=== PATIENT | female | born 1955 | race African-American/Black ===

== ENCOUNTER → 2020-07-07 12:25 | Outpatient (CLI) | payer OTHER, SELFPAY ==
--- NOTE | ~2020-07-07 | MM_ITS ---
EXAMINATION: MM screening [facility] BI w cherelle HISTORY: Screening mammogram TECHNIQUE: Craniocaudal and mediolateral oblique 3-D tomosynthesis images were obtained and synthetic 2-D images were generated. CAD analysis was submitted and interpreted. COMPARISON: 10/10/2018, 08/13/2018, 07/25/2016 BREAST PARENCHYMAL COMPOSITION: There are scattered areas of fibroglandular density. FINDINGS: There is no evidence of suspicious mass, calcification, or architectural distortion to sugg est malignancy in either breast. There has been no suspicious interval change. IMPRESSION: 1. No mammographic evidence of malignancy. 2. Recommend routine screening mammography in one year. BI-RADS Category 1: Negative Reviewed, dictated and finalized at location A. NESS UNIT CONTROLLER
== END ==
DX: Z12.31 Encounter for screening mammogram for malignant neoplasm of breast (principal)
CPT/HCPCS: 77063; 77067

== ENCOUNTER → 2021-08-30 12:22 | Outpatient (CLI) | payer MEDICARE, SELFPAY ==
--- NOTE | ~2021-08-30 | MM_ITS ---
EXAMINATION: MM screening [facility] BI w cherelle HISTORY: Screening mammogram TECHNIQUE: Craniocaudal and mediolateral oblique 3-D tomosynthesis images were obtained and synthetic 2-D images were generated. CAD analysis was submitted and interpreted. COMPARISON: 07/07/2020, 10/10/2018, 08/13/2017 BREAST PARENCHYMAL COMPOSITION: There are scattered areas of fibroglandular density. FINDINGS: There is no suspicious mass, calcification, or architectural distortion to suggest malignan cy in either breast. There has been no suspicious interval change. IMPRESSION: 1. No mammographic evidence of malignancy. 2. Recommend routine screening mammography in one year. BI-RADS Category 1: Negative Reviewed, dictated and finalized at location A.
--- NOTE | ~2021-08-30 | DEXA_ITS ---
Bone Density Report Name: PARIS CRAVEN Age: 66 Sex: Female Ethnicity: Anthony Date of : 1955 Indication: postmenopausal; screening for osteoporosis; height loss; prior fracture; Referring Provider: JOHN PAUL PEDRAZA Study: Bone densitometry was performed. Exam Date: August 30, 2021 Accession number: [id number] Bone Density: Region BMD T-score Z-score Classification AP Spine (L1-L4) 1.109 0.6 1.7 Normal Femoral Neck (Left) 0.897 0.4 1.0 Normal Total Hip (Left) 0.959 0.1 0.6 Normal Femoral Neck (Right) 0.865 0.1 0.7 Normal Total Hip (Right) 0.979 0.3 0.7 Normal Total Hip Mean 0.969 0.2 0.7 Normal World Health Organization criteria for BMD impression classify patients as: Normal (T-score at or above -1.0), Osteopenia (T-score between -1.0 and -2.5), or Osteoporosis (T-score at or below -2.5). 10-year Fracture Risk: FRAX not reported because: All T-scores for Spine Total, Hip Total, Femoral Neck at or above -1.0 Previous Exams: Region Exam Age BMD T-score BMD Change BMD Change Date g/cm2 vs Baseline vs Previous AP Spine(L1-L4) 08/30/2021 66 1.109 0.6 0.040 0.040 12/17/2007 52 1.070 0.2 Total Hip(Left) 08/30/2021 66 0.959 0.1 -0.001 -0.001 12/17/2007 52 0.960 0.1 Total Hip(Right) 08/30/2021 66 0.979 0.3 0.017 0.017 12/17/2007 52 0.962 0.2 *Denotes significance at 95% confidence level, LSC for AP Spine = 0.022 g/cm2, LSC for Total Hip = 0.027 g/cm2 Clinical Information Provided by Patient: Has had a low trauma fracture Patient maximum height was 64 Menopause Age: 50 Onset of menses at age 10 Number of children 0 Impression: The patient has normal bone mass. The patient has risk factors, including: previous fracture. No significant bone loss was observed. Discussion: BONE DENSITY IS ABOVE THE MINIMUM DESIRABLE LEVEL AT ALL SKELETAL SITES TESTED. This patient?s bone mineral density is above the minimum desirable level (T-score -1.0 or better) at all sites measured. The patient should follow a healthful lifestyle (good nutrition with adequate calcium and vitamin D, and appropriate weight-bearing exercise). Follow-Up: Consider repeating this study in 5 years or sooner if there is some new clinical indication. Reported by: [facility] on 08/30/2021 1:01:00 PM. Reviewed, dictated and finalized at location A.
== END ==
DX: Z12.31 Encounter for screening mammogram for malignant neoplasm of breast (principal); Z78.0 Asymptomatic menopausal state
CPT/HCPCS: 77063; 77067; 77080

== ENCOUNTER 2022-04-24 11:36 | Emergency (ER) | payer MEDICARE, SELFPAY ==
--- NOTE | ~2022-04-24 | XR_ITS ---
EXAMINATION: XR chest 2V DATE: 04/24/2022 12:38 INDICATION: Right-sided chest and arm pain TECHNIQUE: PA and lateral views of the chest were obtained. COMPARISON: Chest radiograph dated 10/30/2017 FINDINGS: The lungs remain clear with no focal airspace opacities, pulmonary edema, pleural effusion or pneumot horax. The cardiomediastinal silhouette is normal. Mild upper thoracic levocurvature. IMPRESSION: 1. No acute cardiopulmonary disease. Reviewed, dictated and finalized at location A. OGICAL INSPECTOR
--- NOTE | 2022-04-24 11:43 | ECG_ITS ---
Measurements Intervals [place] Rate: 72 P: 33 MO: 138 QRS: -14 QRSD: 97 T: -14 QT: 373 QTc: 411 Interpretive Statements SINUS RHYTHM VOLTAGE CRITERIA FOR LVH POOR R WAVE PROGRESSION, ANTERIOR LEADS BORDERLINE T WAVE ABNORMALITY- ANTEROLAT/INF LEADS BORDERLINE ECG NO PREVIOUS ECG AVAILABLE FOR COMPARISON Electronically Signed On 04-24-2022 14:07:22 COMMUNITY RELATIONS REP by Ethan Mcdonough D.O.
[2022-04-24 11:44] VITALS: BP 153/91; PULSE 77; RESP 18; TEMP 37; O2SAT 98
[2022-04-24 11:59] LABS: Basophils Absolute Auto 0.1 K/mm3 (0.0-0.1); Eosinophils Absolute Auto 0.3 K/mm3 (0-0.3); Eosinophils Percent Auto 5.7 % (0-4.4); Hematocrit 39.2 % (37.0-47.0); Hemoglobin 12.4 g/dL (12.0-15.0); Immature Granulocyte Absolute 0.01 K/mm3 (0.00-0.031); Immature Granulocyte Percent A 0.2 % (0-0.5); Lymphocytes Percent Auto 37.2 % (18.3-44.2); Mean Corpuscular HGB Conc 31.6 g/dl (32-36); Mean Corpuscular Hemoglobin 28.6 pg (26-34); Mean Corpuscular Volume 90.5 fl (80-100); Monocytes Absolute Auto 0.3 K/mm3 (0.1-0.6); Monocytes Percent Auto 5.5 % (2.6-8.5); Neutrophils Absolute Auto 2.6 K/mm3 (1.3-6.7); Neutrophils Percent Auto 50.4 % (45.5-73.1); Platelet Count Result 339 k/mm3 (150-375); Red Blood Count 4.33 M/mm3 (4.2-5.4); White Blood Count 5.1 K/mm3 (4.5-10.0)
[2022-04-24 12:07] LABS: INR 0.9; Prothrombin Time 11.9 Seconds (11.1-14.7)
[2022-04-24 12:09] LABS: Alanine Aminotransferase 29 U/L (6-35); Albumin Level 4.5 g/dL (3.5-5.1); Alkaline Phosphatase 123 U/L (38-126); Anion Gap 7 mmol/L (8-16); Aspartate Amino Transferase 25 U/L (14-36); Bilirubin,Total 0.4 mg/dL (0.2-1.3); Blood Urea Nitrogen 16 mg/dL (7-17); Calcium 9.3 mg/dL (8.4-10.2); Carbon Dioxide 28 mmol/L (22-30); Chloride 105 mmol/L (98-107); Estimated CRCL calculation 74 ml/min; Estimated Glomerular Filt Rate > 60; Glucose 134 mg/dL (65-110); Lipase 71 U/L (23-300); Potassium 3.8 mmol/L (3.4-5.0); Sodium 140 mmol/L (137-145)
[2022-04-24 12:21] LABS: Troponin I < 0.012 ng/mL (0.000-0.034)
[2022-04-24 14:35] VITALS: BP 129/77; PULSE 66; TEMP 36.4; O2SAT 97
[2022-04-24 15:09] LABS: Troponin I < 0.012 ng/mL (0.000-0.034)
[2022-04-24 16:11] VITALS: BP 156/81; PULSE 63; RESP 16; O2SAT 99
--- NOTE | 2022-04-24 16:41 | ED.GENADULT ---
HPI - General Adult General Chief complaint: Chest Pain Stated complaint: Right sided arm and CP Time Seen by Provider: 04/24/22 16:05 History of Present Illness HPI narrative: 66-year-old female with history of hypertension presented to the emergency department for evaluation of right-sided chest pain. Patient states that yesterday when she was at rest she had right-sided chest pain that did radiate to her right arm. Patient states the pain is worsened with leaning back and with deep inspiration. Patient denies any prior history of PE or DVT. Patient has no prior history of IL or CVA. Patient denies any associated shortness of breath with this. Patient denies any abdominal pain or associated nausea vomiting or diarrhea. Related Data Allergies Allergy/AdvReac Type Severity Reaction Status Date / Time No Known Allergies Allergy Unverified 11/06/17 16:15 Review of Systems Review of Systems: CONSTITUTIONAL: Denies fever, chills, or sweats. EYES: Denies visual changes, redness, or discharge. ENT: Denies rhinorrhea, congestion, sore throat, or otalgia. CARDIOVASCULAR: See HPI RESPIRATORY: Denies cough or dyspnea. GASTROINTESTINAL: Denies abdominal pain, nausea, vomiting, or diarrhea. GENITOURINARY: Denies dysuria or hematuria. SKIN: Denies rash or itching. MUSCULOSKELETAL: Denies back pain, joint pain, or myalgia. NEUROLOGIC: Denies headache, numbness, or weakness. [facility] Family History Family History (Updated 10/01/11 @ 15:00 by DOCTOR UNKNOWN) Other Hypertension Social History Social History Smoking status: Never smoker Alcohol intake: current Exam Narrative: APPEARANCE: Well appearing, no pain, no distress, well-nourished. HEAD: normocephalic, atraumatic. EYES: PERRLA/EOMI, conjunctivae clear. NOSE: Normal no drainage THROAT: Pharynx clear, no exudate. NECK: Supple. No adenopathy, no masses. RESPIRATORY: Airway patent, respirations nonlabored. Clear to auscultation bilaterally, no rales, rhonchi, wheezing. CARDIOVASCULAR: Regular rate and rhythm without murmurs rubs or gallops. ABDOMINAL: Soft, nontender, nondistended, normal bowel sounds MUSCULOSKELETAL: Moves all extremities. Strength/ROM intact, No edema, No calf tenderness. NEURO: Alert. Cranial nerves II through XII intact. Grossly intact SKIN: Warm, dry. Normal Color PSYCHIATRIC: Normal affect/mood. Course Course Emergency Course: Patient blood pressures were improved. Patient had negative serial troponins. Chest x-ray showed no acute cardiopulmonary malady. Patient was afebrile with no leukocytosis. Patient was updated on the results of her work-up. Vital Signs Vital signs: Vital Signs Temperature 98.6 F 04/24/22 11:44 Pulse Rate 77 04/24/22 11:44 Respiratory Rate 18 04/24/22 11:44 Blood Pressure 153/91 H 04/24/22 11:44 Pulse Oximetry 98 04/24/22 11:44 Oxygen Delivery Room Air 04/24/22 11:44 Temperature 97.6 F 04/24/22 14:35 Pulse Rate 65 04/24/22 18:41 Respiratory Rate 15 04/24/22 18:41 Blood Pressure 135/75 04/24/22 18:41 Pulse Oximetry 98 04/24/22 18:41 Oxygen Delivery Room Air 04/24/22 11:44 Medical Decision Making Vital Signs Vital Signs: Vital Signs Temperature 98.6 F 04/24/22 11:44 Pulse Rate 77 04/24/22 11:44 Respiratory Rate 18 04/24/22 11:44 Blood Pressure 153/91 H 04/24/22 11:44 Pulse Oximetry 98 04/24/22 11:44 Oxygen Delivery Room Air 04/24/22 11:44 Temperature 97.6 F 04/24/22 14:35 Pulse Rate 65 04/24/22 18:41 Respiratory Rate 15 04/24/22 18:41 Blood Pressure 135/75 04/24/22 18:41 Pulse Oximetry 98 04/24/22 18:41 Oxygen Delivery Room Air 04/24/22 11:44 Lab Data Lab results reviewed: Yes I reviewed the patient's lab results. 04/24/22 11:52 04/24/22 11:52 Labs: Lab Results 04/24/22 04/24/22 04/24/22 Range/Units 11:52 11:52 11:52 WBC 5.1 (4.5-10.0) K/mm3 RBC 4.33 (4.2-5.4)
[2022-04-24 17:40] LABS: D Dimer 0.29 ug/mL (<0.48)
[2022-04-24 18:27] LABS: Troponin I < 0.012 ng/mL (0.000-0.034)
[2022-04-24 18:41] VITALS: BP 135/75; PULSE 65; RESP 15; O2SAT 98
== END 2022-04-24 18:41 | disposition home or self-care (01) ==
PROVIDERS: Emergency Medicine; Emergency Provider Emergency Medicine
DX: R09.1 Pleurisy (principal); R94.31 Abnormal electrocardiogram [ECG] [EKG]
CPT/HCPCS: 36415; 71046; 80053; 83690; 84484; 85025; 85380; 85610; 85730; 93005; 99284

== ENCOUNTER → 2022-07-09 13:20 | Outpatient (CLI) | payer MEDICARE, SELFPAY ==
--- NOTE | ~2022-07-09 | XR_ITS ---
EXAMINATION: XR shoulder RT min 2V, XR humerus RT DATE: 07/09/2022 14:24 INDICATION: Advanced right shoulder pain TECHNIQUE: 1. AP internally and externally rotated, AP oblique externally rotated and axillary views of the righ t shoulder were obtained. 2. Internal and externally rotated views of the right humerus were obtained. COMPARISON: None FINDINGS: Normal alignment. No fracture.Mild polyarticular osteoarthritis at the right glenohumeral, acromiocl avicular and elbow joints. Visualized portions of the right lung are clear. Soft tissues are unremark able. 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 No acute osseous abnormality. Reviewed, dictated and finalized at location A. 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 No acute oss eous abnormality.
== END ==
DX: M25.511 Pain in right shoulder (principal); M15.9 Polyosteoarthritis, unspecified
CPT/HCPCS: 73030; 73060

== ENCOUNTER 2023-05-09 14:21 | Outpatient (CLI) | payer MEDICARE, SELFPAY | END 2023-05-09 14:22 | disposition home or self-care (01) | LOC: ANHAUDASC 14:22 | PROVIDERS: Visit Provider Internal Medicine | DX: H91.90 Unspecified hearing loss, unspecified ear (principal) | CPT/HCPCS: 92557; 92567 ==

== ENCOUNTER 2023-07-10 08:57 | Outpatient (CLI) | payer MEDICARE, SELFPAY ==
[2023-07-10 18:02] LABS: Basophils Absolute Auto 0.1 K/mm3 (0.0-0.1); Basophils Percent Auto 0.9 % (0.2-1.2); Eosinophils Absolute Auto 0.2 K/mm3 (0-0.3); Eosinophils Percent Auto 4.3 % (0-4.4); Hematocrit 38.9 % (37.0-47.0); Immature Granulocyte Absolute 0.02 K/mm3 (0.00-0.031); Immature Granulocyte Percent A 0.4 % (0-0.5); Lymphocytes Absolute Auto 2.17 K/mm3 (0.9-3.2); Lymphocytes Percent Auto 40.6 % (18.3-44.2); Mean Corpuscular HGB Conc 30.8 g/dl (32-36); Mean Corpuscular Hemoglobin 28.7 pg (26-34); Mean Corpuscular Volume 93.1 fl (80-100); Mean Platelet Volume 9.6 fl (7.4-10.4); Monocytes Absolute Auto 0.4 K/mm3 (0.1-0.6); Monocytes Percent Auto 6.7 % (2.6-8.5); Neutrophils Absolute Auto 2.5 K/mm3 (1.3-6.7); Neutrophils Percent Auto 47.1 % (45.5-73.1); Platelet Count Result 400 k/mm3 (150-375); Red Blood Count 4.18 M/mm3 (4.2-5.4); Red Cell Distribution Width 14.6 % (11.5-14.5); White Blood Count 5.3 K/mm3 (4.5-10.0)
[2023-07-10 18:25] LABS: Alanine Aminotransferase 35 U/L (6-35); Albumin Level 4.1 g/dL (3.5-5.1); Alkaline Phosphatase 124 U/L (38-126); Anion Gap 6 mmol/L (8-16); Aspartate Amino Transferase 43 U/L (14-36); Bilirubin,Total 0.7 mg/dL (0.2-1.3); Blood Urea Nitrogen 17 mg/dL (7-17); Calcium 9.5 mg/dL (8.4-10.2); Carbon Dioxide 28 mmol/L (22-30); Chloride 106 mmol/L (98-107); Cholesterol 180 mg/dL (0-200); Estimated Glomerular Filt Rate > 60; Glucose 130 mg/dL (65-110); HDL Direct 63 mg/dL; Sodium 140 mmol/L (137-145); Triglycerides 76 mg/dL (<150)
[2023-07-10 18:35] LABS: LDL Cholesterol Direct 81 mg/dL
[2023-07-10 19:27] LABS: Hemoglobin A1C 7.3 % (<5.7)
[2023-07-10 19:29] LABS: Folic Acid 5.9 ng/mL (2.76->20)
[2023-07-15 12:14] LABS: NIL 0.03 IU/mL; Quantiferon TB Plus, 1T POSITIVE (NEGATIVE); TB1-NIL 5.74 IU/mL; TB2-NIL 6.26 IU/mL
== END 2023-07-10 08:58 | disposition home or self-care (01) ==
LOC: ANHGOSHLAB 08:59
PROVIDERS: Visit Provider Nurse Practitioner
DX: E03.9 Hypothyroidism, unspecified (principal); E11.9 Type 2 diabetes mellitus without complications; I10 Essential (primary) hypertension; Z11.1 Encounter for screening for respiratory tuberculosis
CPT/HCPCS: 36415; 80053; 80061; 82607; 82746; 83036; 84443; 85025; 86480

== ENCOUNTER 2023-07-19 09:53 | Outpatient (CLI) | payer MEDICARE, SELFPAY ==
[2023-07-23 13:43] LABS: NIL 0.02 IU/mL; Quantiferon TB Plus, 1T POSITIVE (NEGATIVE); TB1-NIL 7.66 IU/mL; TB2-NIL 7.51 IU/mL
== END 2023-07-19 09:54 | disposition home or self-care (01) ==
LOC: ANHGOSHLAB 09:55
PROVIDERS: Visit Provider Nurse Practitioner
DX: R76.11 Nonspecific reaction to tuberculin skin test without active tuberculosis (principal)
CPT/HCPCS: 36415; 86480

== ENCOUNTER 2023-07-19 10:00 | Outpatient (CLI) | payer MEDICARE, SELFPAY ==
--- NOTE | ~2023-07-19 | XR_ITS ---
Clinical Indication: Positive TB skin test PA and lateral views of the chest: Comparison: 04/24/2022 Findings: The lungs are clear, without evidence of focal consolidation or pleural effusion. Cardiome diastinal silhouette is within normal limits. Bones and soft tissues are unremarkable. Impression: Normal chest. Reviewed, dictated and finalized at [facility]. N GATHERER Impression: Normal chest.
== END 2023-07-19 10:01 ==
PROVIDERS: PCP Internal Medicine; Visit Provider Nurse Practitioner
DX: R76.11 Nonspecific reaction to tuberculin skin test without active tuberculosis (principal)
CPT/HCPCS: 71046

== ENCOUNTER 2024-01-07 09:38 | Outpatient (CLI) | payer MEDICARE, SELFPAY ==
[2024-01-07 14:40] LABS: Alanine Aminotransferase 33 U/L (6-35); Albumin Level 4.6 g/dL (3.5-5.1); Alkaline Phosphatase 115 U/L (38-126); Anion Gap 11 mmol/L (4-12); Aspartate Amino Transferase 56 U/L (14-36); Bilirubin,Total 0.4 mg/dL (0.2-1.3); Blood Urea Nitrogen 23 mg/dL (7-17); Carbon Dioxide 25 mmol/L (22-30); Chloride 104 mmol/L (98-107); Estimated Glomerular Filt Rate > 60; Glucose 124 mg/dL (65-110); Potassium 4.3 mmol/L (3.4-5.0); Sodium 140 mmol/L (137-145)
[2024-01-07 15:33] LABS: Creatinine Urine 152.8 mg/dL
[2024-01-07 15:39] LABS: MALB Creatinine Ratio 4.9 mg/g (0-30); Microalbumin Urine Random 7.5 mg/L (0-16.7)
[2024-01-07 16:23] LABS: Hemoglobin A1C 6.6 % (<5.7)
== END 2024-01-07 09:39 | disposition home or self-care (01) ==
PROVIDERS: PCP Internal Medicine; Visit Provider Nurse Practitioner
DX: E11.9 Type 2 diabetes mellitus without complications (principal)
CPT/HCPCS: 36415; 80053; 82043; 83036

== ENCOUNTER 2024-02-06 08:01 | Day surgery (SDC) | payer MEDICARE, SELFPAY ==
[2024-01-20 12:52] VITALS: BMI 32.7
[2024-01-20 13:47] VITALS: BMI 32.7
[2024-02-06 09:15] VITALS: BP 148/92; PULSE 90; RESP 16; TEMP 36.9; O2SAT 100; BMI 32.2
--- NOTE | 2024-02-06 09:21 | WPDANESEPPF ---
Anes - Initial Pre Proc Eval Procedure: Operation Date: 02/06/24 10:30 Proposed Procedures p Diagnostic Colonoscopy - Robbie Roa MD Date/Time: 02/06/24 09:21 Surgeon: Robbie Roa MD Pre Op Diagnosis: Personal HX of Colonic Polyps Patient Data Age: 68 Gender: F Height: 1.63 m Weight: 86.4 kg Allergies Allergy/AdvReac Type Severity Reaction Status Date / Time No Known Allergies Allergy Verified 02/06/24 09:13 Home Medications Medication Instructions Recorded Confirmed Type aspirin 81 mg tablet,delayed 81 mg PO DAILY 07/09/23 02/06/24 History release (Adult Aspirin Regimen) ezetimibe 10 mg tablet 10 mg PO DAILY #7 tabs 09/30/23 02/06/24 Rx atorvastatin 80 mg tablet 80 mg PO QHS #90 tabs 12/20/23 02/06/24 Rx losartan 50 mg tablet 50 mg PO DAILY #90 tabs 01/06/24 02/06/24 Rx metformin 500 mg tablet 500 mg PO DAILY 01/20/24 02/06/24 History sodium,potassium,mag sulfates 17.5 See Rx Instructions PO .COMPLEX 01/20/24 02/06/24 Rx gram-3.13 gram-1.6 gram oral soln #354 mL (Suprep Bowel Prep Kit) levothyroxine 75 mcg tablet 75 mcg PO DAILY #90 tabs 01/23/24 02/06/24 Rx semaglutide 1 mg/dose (4 mg/3 mL) 1 mg (0.75 mL) subcut WEEKLY #3 mL 01/23/24 02/06/24 Rx subcutaneous pen injector (Ozempic) albuterol sulfate 90 mcg/actuation 1 inh inhalation Q4H PRN shortness 02/06/24 02/06/24 Rx aerosol inhaler of breath or wheezing #8.5 grams Patient hx anesthesia problems: none Family hx anesthesia problems: none Results Review: All pre-operative results and documents have been reviewed as part of the pre-operative evaluation. [facility] Past Medical History Medical History Diabetes type 2, controlled Essential hypertension Hyperlipidemia Thyroid disorder Surgical History Surgical History History of removal of both ovaries Family History Family History Mother Colon cancer Sibling Colon cancer Other Hypertension Social History Social History Smoking status: Never smoker Alcohol intake: current Alcohol use details: occasional Substance use: never Substance use type: does not use Lack of Transportation: No Lack of Food: Never True Current Housing: I Have Housing Concerned About Future Housing: No Difficulty Paying Gas/Electric Bills: Decline to Answer Difficulty Paying for Meds: No Currently Unemployed: No Education: Master's Degree or Higher Difficulty w/ Childcare or Family Care: No Living arrangements: with family Occupation/Education: retired Spiritual care concerns: No Agree to blood products: Yes Anes - Eval Final PreProcedure Day of Procedure 02/06/24 09:21 Patient weight: obese Heart: regular rate and rhythm Lungs: clear to auscultation Airway: Mallampati scale class II Neurological: alert and oriented Last oral intake: >/= 8 hours ASA classification: III Emergent: no Anesthetic plan: proceed Anesthesia type and monitoring: general GIVS and standard monitoring Results Review: All pre-operative results and documents have been reviewed as part of the pre-operative evaluation. Informed Consent: The patient's anesthetic plan and its attendant risks and benefits were discussed with the patient/family/POA. Questions were solicited and answers provided to the satisfaction of the patient/family/POA.
[2024-02-06] MEDS: LACTATED RINGERS 1,000 ML 150 ML IV CONT (09:31)
--- NOTE | 2024-02-06 09:32 | SUR.PREOP ---
MD Espinoza notified - pt took losartan this AM. She also has an unremovable bridge on her lower teeth.
--- NOTE | 2024-02-06 09:37 | PM.HPGS ---
History of Present Illness History of Present Illness Consent: Risks, benefits, and alternatives have been discussed and questions answered. Patient agrees to proceed with procedure. Chief complaint: Family history of colon cancer Narrative: Sanjana Stein is a 68 year old female presents for colonoscopy. Patient's family history is significant that her mother had colon cancer, and a brother also had colon cancer. Reports many years ago she was identified as having a colon polyp. Most recent colonoscopy apparently none were found. Patient returns today for surveillance, screening colonoscopy. S that her current weight appetite and bowel movements are normal. Patient denies abdominal pain. She has had no bleeding. Review of Systems Review of Systems: All systems reviewed & are unremarkable except as noted in HPI and below PMFSH Past Medical History Medical History Diabetes type 2, controlled Essential hypertension Hyperlipidemia Thyroid disorder Surgical History Surgical History History of removal of both ovaries Family History Family History Mother Colon cancer Sibling Colon cancer Other Hypertension Social History Social History Smoking status: Never smoker Alcohol intake: current Alcohol use details: occasional Substance use: never Substance use type: does not use Lack of Transportation: No Lack of Food: Never True Current Housing: I Have Housing Concerned About Future Housing: No Difficulty Paying Gas/Electric Bills: Decline to Answer Difficulty Paying for Meds: No Currently Unemployed: No Education: Master's Degree or Higher Difficulty w/ Childcare or Family Care: No Living arrangements: with family Occupation/Education: retired Spiritual care concerns: No Agree to blood products: Yes Meds Home Medications and Allergies Home Medications Medication Instructions Recorded Confirmed Type aspirin 81 mg tablet,delayed 81 mg PO DAILY 07/09/23 02/06/24 History release (Adult Aspirin Regimen) ezetimibe 10 mg tablet 10 mg PO DAILY #7 tabs 09/30/23 02/06/24 Rx atorvastatin 80 mg tablet 80 mg PO QHS #90 tabs 12/20/23 02/06/24 Rx losartan 50 mg tablet 50 mg PO DAILY #90 tabs 01/06/24 02/06/24 Rx metformin 500 mg tablet 500 mg PO DAILY 01/20/24 02/06/24 History sodium,potassium,mag sulfates 17.5 See Rx Instructions PO .COMPLEX 01/20/24 02/06/24 Rx gram-3.13 gram-1.6 gram oral soln #354 mL (Suprep Bowel Prep Kit) levothyroxine 75 mcg tablet 75 mcg PO DAILY #90 tabs 01/23/24 02/06/24 Rx semaglutide 1 mg/dose (4 mg/3 mL) 1 mg (0.75 mL) subcut WEEKLY #3 mL 01/23/24 02/06/24 Rx subcutaneous pen injector (Ozempic) albuterol sulfate 90 mcg/actuation 1 inh inhalation Q4H PRN shortness 02/06/24 02/06/24 Rx aerosol inhaler of breath or wheezing #8.5 grams Allergies Allergy/AdvReac Type Severity Reaction Status Date / Time No Known Allergies Allergy Verified 02/06/24 09:13 Vital Signs Vital Signs - 24 hr 02/06/24 09:15 Temperature 98.4 F Pulse Rate 90 Respiratory Rate 16 Blood Pressure 148/92 H Pulse Oximetry 100 Oxygen Delivery Room Air Exam Narrative: Physical exam reveals patient to be alert. Vital signs stable. HEENT exam is unremarkable. Patient is anicteric. Lungs are clear to auscultation and to percussion. Heart is without murmur or extra sounds. Abdomen bowel sounds are present soft nontender with no organomegaly. Digital external rectal exam is normal. Assessment and Plan Assessment and plan (1) Screening for colon cancer: Code(s): Z12.11 - Encounter for screening for malignant neoplasm of colon Status: Acute (2) Family history of colon cancer in mother: Code(s): Z80.0 - Family hi
[2024-02-06 09:47] LABS: Glucose Point of Care 100 mg/dl (65-105)
[2024-02-06 10:06] VITALS: BP 141/71; PULSE 70; RESP 12; O2SAT 99
[2024-02-06 10:16] VITALS: BP 123/66; PULSE 81; RESP 16; O2SAT 98
[2024-02-06 10:26] VITALS: BP 133/72; PULSE 77; RESP 16; O2SAT 98
--- NOTE | 2024-02-06 10:39 | WPDANESPN ---
Anes - Prog Note Post-Op Date/Time: 02/06/24 10:39 Cardiovascular status: normal Respiratory status: normal Airway patency: baseline Mental status: baseline Post-Op hydration status: normal Vital Signs: Last Vital Signs Temp 36.9 C 02/06/24 09:15 Pulse 77 02/06/24 10:26 Resp 16 02/06/24 10:26 BP 133/72 02/06/24 10:26 Pulse Ox 98 02/06/24 10:26 O2 Del Method Room Air 02/06/24 10:26 Pain Score (VAS): 0 I/O: Intake & Output 02/05/24 02/06/24 02/06/24 23:59 07:59 15:59 Intake Total 600 Balance 600 02/06/24 09:30 POC Capillary Glucose 100 Post-procedural complaints: none Patient Feedback: Patient satisfied with anesthetic care. Other Findings: Patient vital signs back to baseline. Patient denies nausea and vomiting. Patient's pain under control. Patient OK for discharge.
== END 2024-02-06 10:33 | disposition home or self-care (01) ==
PROVIDERS: PCP Internal Medicine; Visit Provider Internal Medicine Gastroenterology
PROC: 0DJD8ZZ Inspection of Lower Intestinal Tract, Via Natural or Artificial Opening Endoscopic (ICD-10-PCS; CPT 45378; principal; 2024-02-06 10:30)
DX: Z80.0 Family history of malignant neoplasm of digestive organs; D12.0 Benign neoplasm of cecum; D12.2 Benign neoplasm of ascending colon; D12.8 Benign neoplasm of rectum; K57.30 Diverticulosis of large intestine without perforation or abscess without bleeding; K64.8 Other hemorrhoids
CPT/HCPCS: 45385

== ENCOUNTER 2024-02-06 14:53 | Outpatient (NON) | payer MEDICARE, SELFPAY | END 2024-02-06 14:54 | disposition home or self-care (01) | LOC: ANHLAB 14:56 | PROVIDERS: PCP Internal Medicine; Visit Provider Internal Medicine Gastroenterology | DX: Z12.11 Encounter for screening for malignant neoplasm of colon (principal) | CPT/HCPCS: 88305 ==

== ENCOUNTER 2024-03-16 10:07 | Outpatient (CLI) | payer MEDICARE, SELFPAY ==
--- NOTE | ~2024-03-16 | MR_ITS ---
MRI of the brain Clinical History: Amnesia Technique: Axial and sagittal T1-weighted images were acquired. These were followed by axial T2-weigh kenzie, diffusion weighted, gradient, and FLAIR images. Following intravenous administration of 70 cc Mu ltiHance gadolinium, T1-weighted fat-sat imaging was performed in the axial and coronal planes. Findings: There is no acute infarct, intracranial hemorrhage, or mass lesion. There are mild chronic white matter changes in periventricular white matter bilaterally. Ventricles and subarachnoid spaces are unremarkable. Orbits are unremarkable. Paranasal sinuses and m astoid air cells are clear. Major intracranial flow voids are intact. Sagittal midline structures are intact. No abnormal postcontrast enhancement identified. IMPRESSION: Minimal chronic microvascular ischemic change, otherwise unremarkable exam. Reviewed, dictated and finalized at location M.
== END 2024-03-16 10:08 | disposition home or self-care (01) ==
PROVIDERS: PCP Internal Medicine; Visit Provider Nurse Practitioner
DX: R41.3 Other amnesia (principal)
CPT/HCPCS: 70553; A9577

== ENCOUNTER 2024-04-17 16:52 | Emergency (ER) | payer OTHER, MEDICARE, SELFPAY ==
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
[2024-04-17 17:19] VITALS: BP 128/67; PULSE 84; RESP 18; TEMP 36.4; O2SAT 99
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
[2024-04-17] MEDS: CYCLOBENZAPRINE HCL 10 MG TABLET PO (20:07)
[2024-04-17] MEDS: ACETAMINOPHEN 500 MG TABLET 1000 MG PO (20:07)
[2024-04-17] MEDS: KETOROLAC 30 MG/ML VIAL (*BKC) IM (20:07)
== END 2024-04-17 20:54 | disposition home or self-care (01) ==
LOC: ANHED 20:45
PROVIDERS: Emergency Provider Emergency Medicine; PCP Internal Medicine
DX: S13.4XXA Sprain of ligaments of cervical spine, initial encounter (principal); S89.92XA Unspecified injury of left lower leg, initial encounter; S89.91XA Unspecified injury of right lower leg, initial encounter; I10 Essential (primary) hypertension; E11.9 Type 2 diabetes mellitus without complications; E78.5 Hyperlipidemia, unspecified; E07.9 Disorder of thyroid, unspecified; Z90.722 Acquired absence of ovaries, bilateral; Z79.85 Long-term (current) use of injectable non-insulin antidiabetic drugs; Z79.84 Long term (current) use of oral hypoglycemic drugs; Z79.82 Long term (current) use of aspirin; Z79.899 Other long term (current) drug therapy; M51.369 Other intervertebral disc degeneration, lumbar region without mention of lumbar back pain or lower extremity pain; M17.0 Bilateral primary osteoarthritis of knee; M50.322 Other cervical disc degeneration at C5-C6 level; V43.52XA Car driver injured in collision with other type car in traffic accident, initial encounter
CPT/HCPCS: 71046; 72125; 72128; 72131; 72170; 73030; 73562; 73630; 96372; 99284; A9270; J1885

== ENCOUNTER 2024-07-13 15:44 | Observation (INO) | payer MEDICARE, SELFPAY ==
--- NOTE | ~2024-07-13 | NM_ITS ---
EXAMINATION: NM britton stress w perfusion DATE: 07/14/2024 13:06 INDICATION: Chest pain. TECHNIQUE: Rest images were obtained following intravenous administration of 10.5 mCi Tc99m tetrofosm in (Myoview). The patient was infused intravenously with Lexiscan (regadenoson). Then, 32.2 mCi Tc99m tetrofosmin (Myoview) was administered intravenously, and stress images were obtained. Data was alissa nstructed into short axis and horizontal and vertical long axis SPECT images. Gated SPECT images were also obtained. COMPARISON: Chest CT 06/12/2024, myocardial perfusion imaging 08/13/2008 FINDINGS: There is no definite reversible or fixed perfusion abnormality to suggest ischemia or infar ction. There is no segmental wall motion abnormality. Left ventricular ejection fraction measures > 70%. IMPRESSION: 1. No definite ischemia or infarct. 2. Normal left ventricular ejection fraction measuring >70%. Reviewed, dictated and finalized at location A. D IDENTIFICATION SPECIALIST
--- NOTE | ~2024-07-13 | XR_ITS ---
EXAMINATION: XR chest 2V DATE: 07/13/2024 16:38 INDICATION: Chest pain. TECHNIQUE: Frontal and lateral views of the chest were obtained. COMPARISON: Chest 2 views 06/11/2024, chest CT 06/12/2024 FINDINGS: There is no pneumonia, pleural effusion, or pneumothorax. The heart size is normal. IMPRESSION: 1. No acute cardiopulmonary disease. Reviewed, dictated and finalized at location A. ABUSE TECHNICIAN
--- NOTE | 2024-07-13 15:46 | ECG_ITS ---
Test Date: 2024-07-13 16:15:01 Measurements Intervals [place] Rate: 73 P: 37 [place]: 140 QRS: -18 QRSD: 102 T: -8 QT: 383 QTc: 424 Interpretive Statements SINUS RHYTHM LEFT VENTRICULAR HYPERTROPHY BORDERLINE R WAVE PROGRESSION, ANTERIOR LEADS BORDERLINE ST-T WAVE ABNORMALITY- ANTEROLAT/INF LEADS BORDERLINE ECG Compared to ECG 06/11/2024 22:55:40 No significant changes Electronically Signed On 07-13-2024 17:05:17 TRADE FACILITATOR by Ethan Mcdonough D.O.
--- OUTSIDE RECORDS SUMMARY | 2024-07-13 15:47 | XMS_ITS | Data Portability ---
Author Organization [facility]IS[facility] Address [address] [place] [address] Assessment No assessment recorded. Plan of Treatment Reminders Order Date Submit Date Provider Last Modified By Organization Details Last Modified Time Details Appointments None recorde d. Lab chlamyd ia trachom atis + neisser ia gonorrh oeae + trichom onas vaginal is DNA panel, ALEXANDRA+pro be, unspeci fied specime n 2023 024 [facility], [address] [place] [address], [address], 4 07:13:09 HIV 1 + 2, meaning ful use set 2023 024 [facility], [address] [place] [address], [place], [address], 4 07:13:11 RPR (rapid plasma reagin) , serum 2023 024 [facility], [address] [place] [address], [place], [address], 4 07:13:10 Hepatit is C IgG Ab, qual, serum 2023 024 [facility], [address] [place] [address], [place], [address], 4 07:13:07 HBsAg (hepati tis B surface Ag), EIA, serum 2023 024 [facility], [address] [place] [address], [place], [address], 4 07:13:09 hsv (1+2) igg, serum 2023 024 [facility], [address] [facility], [facility], [place], [address], 4 07:13:08 chlamyd ia trachom atis + neisser ia gonorrh oeae + trichom onas vaginal is DNA panel, ALEXANDRA+pro be, unspeci fied specime n 2023 024 [facility], [address] [facility], [facility], [place], [address], 4 07:13:38 vaginal pathoge ns panel, ALEXANDRA+pro be, vaginal fluid 2023 024 [facility], [address] [facility], [facility], [place], [address], 4 07:16:24 Referral None recorde d. Procedures None recorde d. Surgeries None recorde d. Imaging None recorde d. Medication Orders metroni dazole 500 mg tablet 2023 024 [facility], [address] [place], [address], 4 11:03:02 flucona zole 150 mg tablet 2023 024 [facility], [address] [place], [address], 4 11:02:58 Patient TargetsNo targets recorded. Patient Instructions Encounter Date Encounter Id Patient Instructions Last Modified By Organization Details Last Modified Time 06/28/2023 [id number] A healthy lifestyle: care instructions [facility] Not available 06/28/2023 11:42:04 08/07/2023 [id number] learning about mood disorders [facility] Not available 08/07/2023 14:29:16 A healthy lifestyle: care instructions [email or web address] Not available 08/07/2023 14:29:16 08/27/2023 [id number] A healthy lifestyle: care instructions [email or web address] Not available 08/27/2023 12:43:00 Reason for Referral None Reported. Results Created Date Observation Date Name Description Value Unit Range Abnormal Flag Note LastModifiedBy Organization Detail LastModifiedTime 06/28/19 24 06/29/2023 HCV ANTIB MAU RFX TO QUANT PCR HCV Ab Non Reacti ve nonrea ctive Not Available [facility] ([facility]) [address] [facility], [place], [address], 07/02/2023 07:13:07 06/28/19 24 06/29/2023 HSV 1 AND 2 AB, IGG hsv 1 IgG, type spec 29.60 index 0.00-0 .90 above high normal Negat karin <0.91 Equiv ocal 0.91 - 1.09 Posit karin >1.09 Note: Negat karin indic ates no antib odies detec kenzie to HSV-1 . Equiv ocal may sugge st early infec tion. If clini maria a appro priat e, retes t at later date. Posit karin indic ates antib odies detec kenzie to HSV-1 . Not Available [facility] ([facility]) [address] [facility], [place], [address], 07/02/2023 07:13:08 06/28/19 24 06/29/2023 HSV 1 AND 2 AB, IGG hsv 2 IgG, type spec 15.10 index 0.00-0 .90 above high normal Negat karin <0.91 Equiv ocal 0.91 - 1.09 Posit kairn >1.09 HSV-2 Antib mau Inter preta tion: Curre nt guide lines and recom menda tions do not recom mend routi ne scree jas for HSV-2 in asymp tomat ic indiv idual s, inclu ding those that are pregn ant. A negat karin antib mau resul t indic ates no detec table antib odies to HSV-2 were found . If recen t expos ure is suspe cted, retes t in 4 to 6 weeks . Equiv ocal sampl es shoul d be retes kenzie in 4 to 6 weeks . A posit karin resul t indic ates the prese nce of detec table IgG antib mau to HSV-2 . FALSE POSIT KARIN RESUL TS MAY OCCUR . Repea t testi ng, or testi ng by a diffe rent metho d, may be indic ated in some setti ngs (e.g. patie nts with low likel ihood of HSV infec tion) . If clini maria a appro priat e, retes t 4 to 6 weeks later . HSV-2 IgG antib mau testi ng resul ts shoul d be clini maria a corre lated . Not Available [facility] ([facility]) [address] [place], [address], 07/02/2023 07:13:08 06/28/19 24 07/02/2023 CT, NG, TRICH VAG BY ALEXANDRA chlamydia by ALEXANDRA Negati ve negati ve Not Available [facility] ([facility]) [address] [place], [address], 07/02/2023 07:13:09 06/28/1907/02/2023 CT, NG, TRICH VAG BY ALEXANDRA gonococcus by ALEXANDRA Negati ve negati ve Not Available [facility] ([facility]) [address] [place], [address], 07/02/2023 07:13:09 06/28/19 24 07/02/2023 CT, NG, TRICH VAG BY ALEXANDRA trich vag by ALEXANDRA Positi ve negati ve abnormal Not Available [facility] ([facility]) [address] [place], [address], 07/02/2023 07:13:09 06/28/19 24 06/29/2023 HBSAG SCREE N HBsAg screen Negati ve negati ve Not Available [facility] ([facility]) [address] [place], [address], 07/02/2023 07:13:09 06/28/19 24 06/29/2023 RPR, RFX QN RPR/C ONFIR M TP RPR Non Reacti ve nonrea ctive Not Available [facility] ([facility]) [address] [place], [address], 07/02/2023 07:13:10 06/28/19 24 06/29/2023 HIV AB/P2 4 AG WITH REFLE X HIV Ab/P24 Ag screen Non Reacti ve nonrea ctive HIV Negat karin HIV-1 /HIV- 2 antib odies and HIV-1 p24 antig en were NOT detec kenzie. There is no labor atory evide nce of HIV infec tion. Not Available [facility] ([facility]) [address] [facility], [place], [address], 07/02/2023 07:13:11 06/28/19 24 06/29/2023 INTER PRETA TION: interpretati on: Commen t Not infec kenzie with HCV unles s early or acute infec tion is suspe cted (whic h may be delay ed in an immun ocomp romis ed indiv idual ), or other evide nce exist s to indic ate HCV infec tion. Not Available [facility] ([facility]) [address] [place], [address], 07/02/2023 07:13:07 08/07/19 24 08/09/2023 CT, NG, TRICH VAG BY ALEXANDRA chlamydia by ALEXANDRA Negati ve negati ve Not Available [facility] ([facility]) [address] [place], [address], 08/10/2023 07:13:38 08/07/19 24 08/09/2023 CT, NG, TRICH VAG BY ALEXANDRA gonococcus by ALEXANDRA Negati ve negati ve Not Available [facility] ([facility]) [address] [place], [address], 08/10/2023 07:13:38 08/07/1908/09/2023 CT, NG, TRICH VAG BY ALEXANDRA trich vag by ALEXANDRA Negati ve negati ve Not Available [facility] ([facility]) [address] [place], [address], 08/10/2023 07:13:38 08/27/19 24 08/29/2023 NUA B VAGIN ITIS PLUS (VG+) atopobium vaginae High - 2 score abnormal Not Available [facility] ([facility]) [address] [place], [address], 08/29/2023 07:16:24 08/27/1908/29/2023 NUA B VAGIN ITIS PLUS (VG+) bvab 2 Low - 0 score Not Available [facility] ([facility]) [address] [place], [address], 08/29/2023 07:16:24 08/27/19 24 08/29/2023 NUA B VAGIN ITIS PLUS (VG+) megasphaera 1 Low - 0 score Calcu late total score by rodriguez g the 3 indiv idual bacte rial vagin osis (BV) marke r score s toget her. Total score is inter prete d as follo ws: Total score 0-1: Indic ates the absen ce of BV. Total score 2: Indet ermin ate for BV. Addit ional clini saroj data shoul d be evalu ated to estab nicholas a diagn osis. Total score 3-6: Indic ates the prese nce of BV. This test was devel oped and its perfo rmanc e sera cteri stics deter mined by [facility]. It has not been clear ed or appro allison by the Food and Drug Admin istra tion. Not Available [facility] ([facility]) [address] [place], [address], 08/29/2023 07:16:24 08/27/19 24 08/29/2023 NUSWA B VAGIN ITIS PLUS (VG+) raine albicans, ALEXANDRA Negati ve negati ve Not Available [facility] ([facility]) [address] [place], [address], 08/29/2023 07:16:24 08/27/19 24 08/29/2023 NUA B VAGIN ITIS PLUS (VG+) raine glabrata, ALEXANDRA Negati ve negati ve Not Available [facility] ([facility]) [address] [place], [address], 08/29/2023 07:16:24 08/27/19 24 08/29/2023 NUA B VAGIN ITIS PLUS (VG+) trich vag by ALEXANDRA Negati ve negati ve Not Available [facility] ([facility]) [address] [place], [address], 08/29/2023 07:16:24 08/27/19 24 08/29/2023 NUA B VAGIN ITIS PLUS (VG+) chlamydia trachomatis, ALEXANDRA Negati ve negati ve Not Available [facility] ([facility]) [address] [place], [address], 08/29/2023 07:16:24 08/27/19 24 08/29/2023 NUA B VAGIN ITIS PLUS (VG+) neisseria gonorrhoeae, ALEXANDRA Negati ve negati ve Not Available [facility] ([facility]) [address] [place], [address], 08/29/2023 07:16:24 Result Notes None recorded. Problems No Known Problems Medical Equipment None Reported. Allergies No known drug allergies Medications Name Sig Start Date Stop Date Status Note LastModified by Organization Details LastModified Time losartan 50 mg tablet TAKE 1 TABLET BY MOUTH ONCE DAILY active Not Available Not Available No t Available metformin 500 mg tablet TAKE 1 TABLET BY MOUTH TWICE DAILY WITH MORNING MEAL AND WITH EVENING MEAL active Not Available Not Available No t Available atorvastati n 80 mg tablet TAKE 1 TABLET BY MOUTH ONCE DAILY active Not Available Not Available No t Available ibuprofen 800 mg tablet TAKE 1 TABLET BY MOUTH TWICE DAILY WITH FOOD NEEDED FOR PAIN active Not Available Not Available No t Available fluconazole 150 mg tablet Take 1 tablet by oral route. 08/26 completed Not Available Not Available Not Available benzonatate 200 mg capsule TAKE 1 CAPSULE BY MOUTH THREE TIMES DAILY NEEDED FOR COUGH 06/28 completed Not Available Not Available Not Available prednisone 20 mg tablet TAKE 2 TABLETS BY MOUTH ONCE DAILY FOR 5 DAYS 06/28 completed Not Available Not Available Not Available metronidazo le 500 mg tablet Take 1 tablet twice a day by oral route for 7 days. active Not Available Not Available No t Available levothyroxi ne 75 mcg tablet TAKE 1 TABLET BY MOUTH ONCE DAILY active Not Available Not Available No t Available albuterol sulfate HFA 90 mcg/actuati on aerosol inhaler INHALE 1 PUFF BY MOUTH EVERY 4 HOURS NEEDED FOR SHORTNESS OF BREATH OR WHEEZING. active Not Available Not Available No t Available oxybutynin chloride 5 mg tablet TAKE 1 TABLET BY MOUTH ONCE DAILY AT BEDTIME active Not Available Not Available No t Available ezetimibe 10 mg tablet TAKE 1 TABLET BY MOUTH ONCE DAILY active Not Available Not Available No t Available Vitals Date Recorded Body weight Heart rate Respiratory rate Body mass index (BMI) Body height Systolic blood pressure Diastolic blood pressure Provider Name and Address Organization Details Last Updated DateTime 4 39192.4 6 g 79 /min 18 /min 35.9 kg/m2 160.02 cm 120 mm[Hg] 83 mm[Hg] Nelda Gore [facility] 4 10:23:36 Date Recorded Body height Body mass index (BMI) Body weight Heart rate Systolic blood pressure Diastolic blood pressure Provider Name and Address Organization Details Last Updated DateTime 4 160.02 cm 35.9 kg/m2 18783.8 5 g 67 /min 147 mm[Hg] 83 mm[Hg] Yara Orozco MA [facility] 4 14:32:09 Date Recorded Body height Body mass index (BMI) Body weight Heart rate Respiratory rate Systolic blood pressure Diastolic blood pressure Provider Name and Address Organization Details Last Updated DateTime 4 160.02 cm 35.7 kg/m2 14361.8 7 g 71 /min 16 /min 126 mm[Hg] 83 mm[Hg] Nelda Gore [facility] 4 14:23:44 Date Recorded Body height Body mass index (BMI) Body weight Heart rate Respiratory rate Systolic blood pressure Diastolic blood pressure Provider Name and Address Organization Details Last Updated DateTime 4 160.02 cm 36.1 kg/m2 06978.8 4 g 75 /min 16 /min 123 mm[Hg] 76 mm[Hg] Nelda Gore [facility] 4 12:28:43 Social History Question Answer Notes LastModified by Organizat ion Details LastModified Time Tobacco Smoking Status Never Smoker Nelda Gore null, [facility] 06/28/2023 10:28:30 In The 14 Days Before Symptom Onset, Have You Had Close Contact With A Laboratory-confirm ed COVID-19 While That Case Was Ill? No [email or web address] Information n ot available 06/28/2023 In The 14 Days Before Symptom Onset, Have You Had Close Contact With A Person Who Is Under Investigation For COVID-19 While That Person Was Ill? No [email or web address] Information not available 06/28/2023 Have You Been To An Area Known To Be High Risk For COVID-19? No [email or web address] Information not available 06/28/2023 What Was The Date Of Your Most Recent Tobacco Screening? 08/27/2023 [email or web address] Information not available 08/27/2023 Are You Sexually Active? Yes [email or web address] Information not available 06/28/2023 Do You Have Smoke And Carbon Monoxide Detectors In Your Home? Yes [email or web address] Information not available 06/28/2023 Are You Passively Exposed To Smoke? No [email or web address] Information no t available 06/28/2023 Do You Use Any Illicit Or Recreational Drugs? No [email or web address] Information not available 08/07/2023 Has Tobacco Cessation Counseling Been Provided? Yes [email or web address] Information not available 08/07/2023 Do You Or Have You Ever Used Any Other Forms Of Tobacco Or Nicotine? No [email or web address] Information not available 06/28/2023 Sex: Female Functional Status None recorded. Mental Status None recorded. Family History Nothing Reported. Medical History No medical history recorded. Gynecological History Statement/Question Response Menses Monthly N If Post Menopausal, Age at Menopause 49 Age at Menarche 9 Current Control Method Menopause LMP Unknown Obstetrics History GPAL:G 0 P 0 0 0 0 Past Encounters Encounter ID Performer Location Encounter Start Date Encounter Closed Date Diagnosis/Indication Diagnosis SNOMED-CT Code Diagnosis ICD10 Code Diagnosis Note [id number] CELESTINA Castellanos [address] [place] [address] 06/28/2023 10:11:48 07/01/2023 07:28:40 Venereal disease screening 596599564 Z11.3 1. STD testing done per pt request 2. Educated pt on STD prevention , Condom use 3. Pt verbalized understand ing 4. Will follow up pending lab results, as needed or at next annual Obesity 717934286 E66.9 Discussed diet and weight loss. Discussed making healthier food choices and increasing exercise. Discussed going to a motion picture set worker. [id number] CELESTINA Castellanos [address] [place] [address] 07/16/2023 14:22:55 07/17/2023 08:55:14 Vaginal discharge 840780534 N89.8 Nuswab done and sent to lab. Counseled on STD prevention and condom use. Counseled on yeast and BV prevention . Will follow up pending lab results. [id number] CELESTINA Castellanos [address] [place] [address] 08/07/2023 14:14:35 08/08/2023 08:20:36 Obesity 152837688 E66.9 Discussed diet and weight loss. Discussed making healthier food choices and increasing exercise. Discussed going to a motion picture set worker. Positive s creening for depression on PHQ-9 (Patient Health Questionnaire 9) 3233793376 19420 Z13.31 . Denies thoughts of self harm or harming others. Pt instructed to call 911 if depression worsens or go to ED. History of sexually transmitted disease 877378485 Z86.19 1. STD testing done per pt request 2. Educated pt on STD prevention , Condom use 3. Pt verbalized understand ing 4. Will follow up pending lab results, as needed or at next annual [id number] CELESTINA Castellanos [address] [place] [address] 08/27/2023 12:15:29 08/28/2023 10:16:11 Vaginal discharge 026086215 N89.8 Nuswab done and sent to lab. Counseled on STD prevention and condom use. Counseled on yeast and BV prevention . Will follow up pending lab results. Obesity 371894615 E66.9 Discussed diet and weight loss. Discussed making healthier food choices and increasing exercise. Discussed going to a motion picture set worker. Health Concerns Section Related Observation LastModified by Organization Detai ls LastModified Time None Recorded Concern Status LastModified by Organization Details LastModified Time None Recorded Advance Directives Directive None Recorded Payers Encounter Date Sequence Insurance Name Policy Number Policy P[place]agua Covered Member ID Paniagua Member ID Guarantor Name 06/28/2023 1 [facility] (MEDICARE REPLACEMENT/A DVANTAGE - HMO) [id number] Sanjana Emil [id number] Sanjana Emil 07/16/2023 1 [facility] (MEDICARE REPLACEMENT/A DVANTAGE - HMO) [id number] Sanjana Emil [id number] Sanjana Emil 08/07/2023 1 [facility] (MEDICARE REPLACEMENT/A DVANTAGE - HMO) [id number] Sanjana Emil [id number] Sanjana Emil 08/27/2023 1 [facility] (MEDICARE REPLACEMENT/A DVANTAGE - HMO) [id number] Asnjana Emil [id number] Sanjana Emil Notes Date Note Type Note Provider Name and Address Organization Details Recorded Time 06/28/2023 text/html Annual GYNReport ed bypatient.Urinary symptoms:No hematuria; No incontinence Vulva:No genital lesion Vagina:Normal vaginal discharge Breast:No breast pain; No breast lump; No nipple discharge Sexual complaints:No sexual complaints; No pain during intercourse; Normal libido Menopausal Symptoms:No menopausal symptoms; Normal vaginal lubrication Psychological symptoms:No depression; No anxiety; No PMDD 68 yo fe here for walk in std testing CELESTINA Castellanos Attn: [address] [place], [address], [facility] 06/28/2023 11:59:45 07/16/2023 text/html Annual GYNReport ed bypatient.Urinary symptoms:No hematuria; No incontinence Vulva:No genital lesion Vagina:Foul-smelli ng Breast:No breast pain; No breast lump; No nipple discharge Sexual complaints:No sexual complaints; No pain during intercourse; Normal libido Menopausal Symptoms:No menopausal symptoms; Normal vaginal lubrication Psychological symptoms:No depression; No anxiety; No PMDD Preventive measures:Encourage self breast examination; Encourage regular exercise; Encourage no tobacco use; Encourage regular mammograms starting age [age] yo fe here for vaginal discharge with odor- pos trich 07/02/23pt declines swab or exam today, would like refill on meds CELESTINA Castellanos Attn: [address] [place], [address], [facility] 07/16/2023 15:18:31 08/07/2023 text/html Annual GYNReport ed bypatient.Urinary symptoms:No hematuria; No incontinence Vulva:No genital lesion Vagina:Foul-smelli ng Breast:No breast pain; No breast lump; No nipple discharge Sexual complaints:No sexual complaints; No pain during intercourse; Normal libido Menopausal Symptoms:No menopausal symptoms; Normal vaginal lubrication Psychological symptoms:No depression; No anxiety; No PMDD Preventive measures:Encourage self breast examination; Encourage regular exercise; Encourage no tobacco use; Encourage regular mammograms starting age [age] yo fe here for jeannine- pos trich 07/02/23 CELESTINA Castellanos Attn: [address] [place], [address], [facility] 08/07/2023 14:34:58 08/27/2023 text/html Annual GYNReport ed bypatient.Urinary symptoms:No hematuria; No incontinence Vulva:No genital lesion Vagina:Foul-smelli ng Breast:No breast pain; No breast lump; No nipple discharge Sexual complaints:No sexual complaints; No pain during intercourse; Normal libido Menopausal Symptoms:No menopausal symptoms; Normal vaginal lubrication Psychological symptoms:No depression; No anxiety; No PMDD Preventive measures:Encourage self breast examination; Encourage regular exercise; Encourage no tobacco use; Encourage regular mammograms starting age [age] yo fe here for continued vaginal discharge- pos trich 07/02/23 CELESTINA Castellanos Attn: [address] [place], [address], [facility] 08/27/2023 12:46:10 OBGyn Episode No OBEpisode recorded.
--- OUTSIDE RECORDS SUMMARY | 2024-07-13 15:47 | XMS_ITS | Patient Health Summary ---
Author Organization [facility] [employer] Address [address] [place] [address] Care Team Providers Care Asphalt Spreader Name Role Phone Jayden Burgess MD Primary Care Provider Note from [facility],non-owned Affiliates and Associated Physician Practices is amultiple site organization consisting of ambulatory clinics and hospital sitesin [place], [place], [place] and [place]. This disclosure is being madepursuant to the Care Everywhere program and may not contain all information available regarding this patient. Last updated 18.[facility] [employer] Allergies No known active allergies Medications * Be aware that medications may not be up to date on this document. Alwaysverify current medications with the patient. * levothyroxine (Synthroid) 75 MCG tablet(Started 07/26/2022) Take 1 (one) tablet by mouth once daily * losartan (Cozaar) 50 MG tablet(Started 07/26/2022) Take 1 (one) tablet by mouth once daily * atorvastatin (Lipitor) 80 MG tablet(Started 08/06/2022) Take 1 (one) tablet by mouth once daily * metFORMIN (Glucophage) 500 MG tablet(Started 09/09/2022) * aspirin EC (Ecotrin) 81 MG tablet Take 1 (one) tablet by mouth once daily * oxyBUTYnin (Ditropan) 5 MG tablet(Started 09/17/2022) Take 1 (one) tablet by mouth at bedtime Reasons: Overactive Bladder 3 refills by 09/17/2023 Social History Tobacco Use Types Packs/Day Years Used Date Smoking Tobacco: Never Smokeless Tobacco: Never Tobacco Cessation:Counseling Given: Not Answered Alcohol Use Standard Drinks/Week Comments Yes 0 (1 standard drink = 0.6 oz pur e alcohol) occ Sex and Gender Information Value Date Recorded Sex Assigned at Not on file Gender Identity Not on file Sexual Orientation Not on file Last Filed Vital Signs Vital Sign Reading Time Taken Comments Blood Pressure 148/84 09/17/2022 10:03 AM CDT Pulse 68 09/17/2022 10:03 AM CDT Temperature - - Respiratory Rate - - Oxygen Saturation 98% 09/17/2022 10:03 AM CDT Inhaled Oxygen Concentration - - Weight 91.6 kg (202 lb) 09/17/2022 10:03 AM CDT Height 162.6 cm (5' 4 ) 09/17/2022 10:03 AM CDT Body Mass Index 34.67 09/17/2022 10:03 AM CDT Procedures * URINALYSIS W/MICROSCOPIC REFLEX TO CULTURE(Performed 09/17/2022) Performed for Frequent urination, Microhematuria * DC MSR PVR U&/BLADD CAPCTY US NON(Performed 09/17/2022) Performed for Frequent urination * URINALYSIS AUTO - POINT OF CARE (AMB) SLU(Performed 09/17/2022) Performed for Frequent urination * CULTURE URINE REFLEXED III(Performed 09/17/2022) Results * URINALYSIS W/MICROSCOPIC REFLEX TO CULTURE (09/17/2022 10:30 AM CDT) Color UA YELLOW YELLOW [facility] Appearance CLEAR CLEAR [facility] Specific [place] UA 1.024 1.001 - 1.035 [facility] pH UA 5.5 5.0 - 8.0 [facility] Glucose UA NEGATIVE NEGATIVE [facility] Bilirubin UA NEGATIVE NEGATIVE [facility] Ketone UA NEGATIVE NEGATIVE [facility] Blood UA NEGATIVE NEGATIVE [facility] Protein UA NEGATIVE NEGATIVE [facility] Nitrite NEGATIVE NEGATIVE [facility] Leukocyte Esterase NEGATIVE NEGATIVE [facility] WBC UA NONE SEEN < OR = 5 /HPF [facility] RBC UA NONE SEEN < OR = 2 /HPF [facility] Epithelial Cell UA 0-5 < OR = 5 /HPF [facility] Bacteria UA NONE SEEN NONE SEEN /HPF [facility] Hyaline Casts NONE SEEN NONE SEEN /LPF [facility] Note See Below [facility] Comment: This urine was analyzed for the presence of WBC, RBC, bacteria, casts, and other formed elements. Only those elements seen were reported. Test Performed at: [facility] [id number] ALFONZO LAINEZ MD Urine URINE SPECIMEN OBTAINED BY CLEAN CATCH PROCEDURE / Unknown 09/17/2022 10:30 AM CDT 09/18/2022 2:26 AM CDT Cristine Rios APRN-CYTOGENETICS TECHNOLOGIST LAB - URINALY SIS ORDERABLES Performing Organization Address [facility] Co de Phone Number [phone] [place] [address] * DC MSR PVR U&/BLADD CAPCTY US NON (09/17/2022 10:14 AM CDT) Narrative Archana Barton - 09/17/2022 10:14 AM CDT Archana Barton 09/17/2022 10:14 AM PVR = 0 mL Cristine Rios APRN-CYTOGENETICS TECHNOLOGIST PROCEDURE/MIN OR SURGICAL ORDERABLES * URINALYSIS AUTO - POINT OF CARE (AMB) [facility] (09/17/2022) Glucose UA - Bilirubin UA POCT - Ketones UA POCT - Specific [place] UA 1.025 Blood Urine POCT +- pH UA 5.5 Protein UA +- Urobilinogen UA - Nitrite UA - WBC UA - Urine URINE / Unknown 09/17/2022 Cristine Rios APRN-CYTOGENETICS TECHNOLOGIST LAB - POINT O F CARE ORDERABLES * CULTURE URINE REFLEXED III (09/17/2022) Reflexive Urine Culture See Below [facility] Comment: NO CULTURE INDICATED Test Performed at: [facility] [id number] ALFONZO LAINEZ MD 09/17/2022 09/18/2022 2:2 6 AM CDT Cristine Rios APRN-CYTOGENETICS TECHNOLOGIST LAB - MICROBI OLOGY ORDERABLES Performing Organization Address City/[facility]/ZIP Co de Phone Number [facility] [address] [place] [address] Care Teams Asphalt Spreader Relationship Specialty Start Date End Date Jayden Burgess MD [address] [place] [address] PCP - General 08/28/22
--- OUTSIDE RECORDS SUMMARY | 2024-07-13 15:47 | XMS_ITS | Referral Summary ---
Author Organization [facility] Address [address] [place] [address] Care Team Providers Care Computer Operations Manager Name Role Phone Jayden Burgess MD Primary Care Provider Source Comments [facility],non-owned Affiliates and Associated Physician Practices is amultiple site organization consisting of ambulatory clinics and hospital sitesin [place], [place], [place] and [place]. This disclosure is being madepursuant to the Care Everywhere program and may not contain all information available regarding this patient. Last updated 18.[facility] Allergies No known active allergies Medications * Be aware that medications may not be up to date on this document. Alwaysverify current medications with the patient. Medication Sig Dispensed Refills Start Date End Date Status levothyroxine (Synthroid) 75 MCG tablet Take 1 (one) tablet by mouth once daily 07/26/2022 Active losartan (Cozaar) 50 MG tablet Take 1 (one) tablet by mouth once daily 07/26/2022 Active atorvastatin (Lipitor) 80 MG tablet Take 1 (one) tablet by mouth once daily 08/06/2022 Active metFORMIN (Glucophage) 500 MG tablet 09/09/2022 Active aspirin EC (Ecotrin) 81 MG tablet Take 1 (one) tablet by mouth once daily Active oxyBUTYnin (Ditropan) 5 MG tabletIndications:O veractive Bladder Take 1 (one) tablet by mouth at bedtime Reasons: Overactive Bladder 30 tablet 3 09/17/2022 Active Social History Tobacco Use Types Packs/Day Years [...] Mass Index 34.67 09/17/2022 10:03 AM CDT Plan of Treatment Not on file Care Teams Computer Operations Manager Relationship Specialty Start Date End Date Jayden Burgess MD [address] [place] [address] PCP - General 08/28/22
--- OUTSIDE RECORDS SUMMARY | 2024-07-13 15:47 | XMS_ITS | Clinical Summary ---
Author Organization [facility] Address [facility] [place] [address] Care Team Providers Care Entry Level Lab Technician Name Role Phone Unavailable Primary Care Provider Unavailabl e Social History Tobacco Use Types Packs/Day Years Used Date Smoking Tobacco: Never Assessed Comments Unknown Sex and Gender Information Value Date Recorded Sex Assigned at Not on file Legal Sex Female 4:29 PM CDT Gender Identity Not on file Sexual Orientation Not on file Plan of Treatment Health Maintenance Due Date Last Done Comments Colorectal Cancer Screening Colonoscopy (10 Years) 1954 Hepatitis C 1972 DTaP, Tdap and Td Vaccines ( 1 - Tdap) 1973 Mammogram Screening 1994 Zoster Vaccines (1 of 2) 2004 Dexa Scan (General) 2019 Pneumococcal Vaccine: 65+ Ye ars (1 of 1 - PCV) 2019 COVID-19 Vaccine (2023-2 5 season) 2024 Influenza Adult (#1) 2024 RSV Immunization or 60+ Years (1 - 1-dose 75+ series) 2029 Meningococcal B Vaccine Aged Out No l onger eligible based on patient's age to complete this topic Meningococcal Vaccine Aged Out No deloris barney eligible based on patient's age to complete this topic RSV Immunizations Under 20 Months Aged Out No longer eligible based on patient's age to complete this topic
--- OUTSIDE RECORDS SUMMARY | 2024-07-13 15:48 | XMS_ITS | Clinical Summary ---
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 Name Role Phone Unavailable Primary Care Provider Unavailabl e Social History Tobacco Use Types Packs/Day Years Used Date Smoking Tobacco: Never Assessed Comments Unknown Sex and Gender Information Value Date Recorded Sex Assigned at Not on file Legal Sex Female 12:07 PM ORCHID SUPERINTENDENT Gender Identity Not on file Sexual Orientation Not on file Plan of Treatment Health Maintenance Due Date Last Done Comments DEXA Bone Density 1954 Hepatitis C Virus (HCV) Screening 1954 TdaP Immunization 1954 Colonoscopy 1999 Colorectal Cancer Screening 1999 Cologuard 2004 Immunochemical Fecal Occult Blood 2004 Mammogram 2004 Pneumococcal Immunization (5 0+ years) (1 of 1 - PCV) 2004 Zoster Immunization (1 of 2) 2004 Influenza Immunization (#1) 2024 SARS-COV-2 Immunization ( - 2023-25 season) 2024 Respiratory Syncytial Virus (RSV) Immunization (Adult) (1 - 1-dose 75+ series) 2029 Hepatitis B Immunization Aged Out No longer eligible based on patient's age to complete this topic Meningococcal Immunization (ACWY) Aged Out No longer eligible based on patient's age to complete this topic Rotavirus Immunization Aged Out No lo nger eligible based on patient's age to complete this topic
--- OUTSIDE RECORDS SUMMARY | 2024-07-13 15:48 | XMS_ITS | Clinical Summary ---
Author Organization [facility] [address] Address [address] [place] [id number] Care Team Providers Care Wildlife Conservationist Name Role Phone Moon Choi NP Primary Care Provider Allergies No known active allergies Medications losartan (COZAAR) 50 mg tablet Take 1 tablet (50 mg total) by mouth daily Active metFORMIN (FORTAMET) 500 mg 24 hr tablet Take 1 tablet (500 mg total) by mouth daily with breakfast Active atorvastatin (LIPITOR) 80 mg tablet Take 1 tablet (80 mg total) by mouth daily Active levothyroxine (SYNTHROID) 75 mcg tablet Take 1 tablet (75 mcg total) by mouth hop farmer before breakfast Active ezetimibe (ZETIA) 10 mg tablet Take 1 tablet (10 mg total) by mouth daily Active aspirin 81 mg enteric coated tablet Take 1 tablet (81 mg total) by mouth daily Active semaglutide (Ozempic) 1 mg/dose (2 mg/1.5 mL) pen injector injection Inject 1 mg under the skin Active Active Problems No known active problems Social History Tobacco Use Types Packs/Day Years Used Date Smoking Tobacco: Never Tobacco Cessation:Counseling Given: Not Answered Comments Unknown Sex and Gender Information Value Date Recorded Sex Assigned at Not on file Legal Sex Female 8:30 PM OPEN DIE INSPECTOR Gender Identity Not on file Sexual Orientation Not on file Obstetrics History Last Filed Vital Signs Vital Sign Reading Time Taken Comments Blood Pressure 142/77 04/14/2015 10:47 AM OPEN DIE INSPECTOR Pulse 66 04/14/2015 10:47 AM OPEN DIE INSPECTOR Temperature 35.9 C (96.7 F) 02/13/2024 12:38 PM CDT Respiratory Rate - - Oxygen Saturation 94% 04/14/2015 10:47 AM OPEN DIE INSPECTOR Inhaled Oxygen Concentration - - Weight 86.8 kg (191 lb 6.4 oz) 02/13/2024 12:38 PM CDT Height 162.6 cm (5' 4 ) 04/14/2015 10:47 AM OPEN DIE INSPECTOR Body Mass Index 32.85 04/14/2015 10:47 AM OPEN DIE INSPECTOR Plan of Treatment Health Maintenance Due Date Last Done Comments Breast Cancer Screening-Mammogram 1954 Colon Cancer Screening-Colonoscopy 1954 Depression Screening 1954 Fall Risk Assessment 1954 Hepatitis C Screening 1954 Osteoporosis Screening-Bone Density Scan 1954 DTaP/Tdap/Td Vaccine (1 - Tdap) 1965 Hepatitis B Screening 1972 Well Visit 65+ 2019 Covid-19 Vaccine (2023-2 5 season) 2024 04/13/2023, 04/16/2022, 11/08/2021, Additional history exists Influenza Vaccine (#1) 2024 04/13/2023, 2022 Pneumococcal vaccine 65+ Completed 03/18/2023 Zoster Vaccine Completed 08/13/2023, 01/03/2023 Insurance MEDICARE [employer] Care Teams Wildlife Conservationist Relationship Specialty Start Date End Date Moon Choi NP PCP - General Nurse Practitioner 08/05/23
--- OUTSIDE RECORDS SUMMARY | 2024-07-13 15:48 | XMS_ITS | Referral Summary ---
Author Organization [facility] [address] Address [address] [place] [phone] Care Team Providers Care Valuation Manager Name Role Phone Moon Choi NP Primary Care Provider [phone] Allergies No known active allergies Medications losartan [...] 1 tablet (75 mcg total) by mouth building principal before breakfast Active ezetimibe (ZETIA) 10 mg [...] on file Legal Sex Female 8:30 PM EXHAUSTER Gender Identity Not on file Sexual Orientation Not on file Last Filed Vital Signs Vital Sign Reading Time Taken Comments Blood Pressure 142/77 04/14/2015 10:47 AM EXHAUSTER Pulse 66 04/14/2015 10:47 AM EXHAUSTER Temperature 35.9 C (96.7 F) 02/13/2024 12:38 PM CDT Respiratory Rate - - Oxygen Saturation 94% 04/14/2015 10:47 AM EXHAUSTER Inhaled Oxygen Concentration - - Weight 86.8 kg (191 lb 6.4 oz) 02/13/2024 12:38 PM CDT Height 162.6 cm (5' 4 ) 04/14/2015 10:47 AM EXHAUSTER Body Mass Index 32.85 04/14/2015 10:47 AM EXHAUSTER Plan of Treatment Not on file Insurance [employer] Care Teams Valuation Manager Relationship Specialty Start Date End Date Moon Choi NP PCP - General Nurse Practitioner 08/05/23
--- OUTSIDE RECORDS SUMMARY | 2024-07-13 15:48 | XMS_ITS | Clinical Summary ---
Author Organization [facility] Address [address] [facility] [place] [address] Care Team Providers Care Stone Planer Name Role Phone Jayden Burgess MD Primary Care Provider Source Comments [facility],non-owned Affiliates and Associated Physician Practices is amultiple site organization consisting of ambulatory clinics and hospital sitesin [place], [place], [place] and [place]. This disclosure is being madepursuant to the Care Everywhere program and may not contain all information available regarding this patient. Last updated 18.[facility] Allergies No known active allergies Medications * [...] 09/17/2022 10:03 AM CDT Plan of Treatment Health Maintenance Due Date Last Done Comments BONE DENSITY TESTING 1954 COLOGUARD (AGES 45-75) - COL ON CA SCREENING 1954 COLON MONITORING 1954 COLONOSCOPY - COLON CA SCREENING 1954 CT COLONOGRAPHY - COLON CA SCREENING 1954 Colorectal Cancer Screening 1954 FIT - COLON CA SCREENING 1954 FLEX SIG - COLON CA SCREENING 1954 MAMMOGRAM 1954 HEPATITIS C SCREENING 04/28/1972 DTAP/TDAP/TD VACCINES (1 - Tdap) 1973 PNEUMOCOCCAL VACCINE 50+ (1 of 1 - PCV) 2004 ZOSTER VACCINE (1 of 2) 2004 SCREENING FOR DIABETES 09/17/2022 COVID-19 VACCINE (1 - 2023-2 5 season) 2024 INFLUENZA VACCINE (#1) 2024 DEPRESSION SCREENING 06/03/2024 MEDICARE AWV CALENDAR YEAR 2024 Respiratory Syncytial Virus (RSV) Vaccine Pt: or over 60 yrs (1 - 1-dose 75+ series) 2029 HEPATITIS B VACCINE Aged Out No longe r eligible based on patient's age to complete this topic HIB VACCINE Aged Out No longer eligi ble based on patient's age to complete this topic HPV VACCINE Aged Out No longer eligi ble based on patient's age to complete this topic MENINGOCOCCAL (Group B) VACCINE Aged Out No longer eligible based on patient's age to complete this topic MENINGOCOCCAL VACCINE Aged Out No deloris barney eligible based on patient's age to complete this topic Care Teams Stone Planer Relationship Specialty Start Date End Date Jayden Burgess MD [address] [place] [address] PCP - General 08/28/22
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
[2024-07-13 16:06] VITALS: BP 151/86; PULSE 77; RESP 18; TEMP 37; O2SAT 98
[2024-07-13 16:25] LABS: Basophils Percent Auto 0.6 % (0.2-1.2); Eosinophils Absolute Auto 0.2 K/mm3 (0-0.3); Eosinophils Percent Auto 3.6 % (0-4.4); Hematocrit 38.3 % (37.0-47.0); Hemoglobin 12.3 g/dL (12.0-15.0); Immature Granulocyte Absolute 0.01 K/mm3 (0.00-0.031); Immature Granulocyte Percent A 0.2 % (0-0.5); Lymphocytes Absolute Auto 1.95 K/mm3 (0.9-3.2); Lymphocytes Percent Auto 38.9 % (18.3-44.2); Mean Corpuscular HGB Conc 32.1 g/dl (32-36); Mean Corpuscular Hemoglobin 29.1 pg (26-34); Mean Corpuscular Volume 90.8 fl (80-100); Mean Platelet Volume 8.7 fl (7.4-10.4); Monocytes Absolute Auto 0.3 K/mm3 (0.1-0.6); Monocytes Percent Auto 5.6 % (2.6-8.5); Neutrophils Absolute Auto 2.6 K/mm3 (1.3-6.7); Neutrophils Percent Auto 51.1 % (45.5-73.1); Platelet Count Result 324 k/mm3 (150-375); Red Blood Count 4.22 M/mm3 (4.2-5.4); Red Cell Distribution Width 13.9 % (11.5-14.5)
[2024-07-13 16:34] LABS: Alanine Aminotransferase 28 U/L (6-35); Albumin Level 4.6 g/dL (3.5-5.1); Alkaline Phosphatase 135 U/L (38-126); Anion Gap 13 mmol/L (4-12); Aspartate Amino Transferase 24 U/L (14-36); Bilirubin,Total 0.9 mg/dL (0.2-1.3); Blood Urea Nitrogen 14 mg/dL (7-17); Calcium 9.6 mg/dL (8.4-10.2); Carbon Dioxide 25 mmol/L (22-30); Chloride 103 mmol/L (98-107); Estimated CRCL calculation 74 ml/min; Estimated Glomerular Filt Rate > 60; Glucose 91 mg/dL (65-110); Lipase 140 U/L (23-300); Potassium 3.6 mmol/L (3.4-5.0); Sodium 141 mmol/L (137-145)
[2024-07-13 16:37] LABS: INR 0.9; Prothrombin Time 12.7 Seconds (11.1-14.7)
[2024-07-13 16:46] LABS: Troponin I < 0.012 ng/mL (0.000-0.034)
--- NOTE | 2024-07-13 17:06 | ED_ITS ---
HPI - Chest Pain General Chief Complaint: Chest Pain <Libby Chacon PA-C - Last Filed: 07/15/24 19:15> Stated Complaint: chest and back pain <Libby Chacon PA-C - Last Filed: 07/15/24 19:15> Time Seen by Provider: 07/13/24 17:06 <Libby Chacon PA-C - Last Filed: 07/15/24 19:15> Focused HPI: This is a 69 year old female that presents to the ER for chest pain and back pain. Reports this started this afternoon. She was seated at home when it started. The pain is achy in nature. She has not taken any pain medication. GENERAL: Well-appearing, well-nourished, and in no acute distress. HEAD: Normocephalic, atraumatic. CHEST: Clear to auscultation. ?No respiratory distress. HEART: Regular rate and rhythm.? NEURO: ?Alert and oriented x3. Patient screened in triage and initial orders placed.? ?Additional care and disposition to be based upon?diagnostic testing and treatment. <Libby Chacon PA-C - Last Filed: 07/15/24 19:15> History of Present Illness HPI narrative: I agree with the assessment and documentation of Libby Chacon PA-C. < Chey Nieves APRN - Last Filed: 07/14/24 02:21> Related Data Home Medications: Home Medications ?Medication ?Instructions ?Recorded ?Confirmed ?Last Taken ?Type aspirin 81 mg tablet,delayed 81 mg PO DAILY 07/09/23 07/14/24 01/30/24 History release (Adult Aspirin Regimen) <Libby Chacon PA-C - Last Filed: 07/15/24 19:15> Allergies/Adverse Reactions: Allergies Allergy/AdvReac Type Severity Reaction Status Date / Time No Known Allergies Allergy Verified 07/14/24 08:05 <Libby Chacon PA-C - Last Filed: 07/15/24 19:15> Review of Systems 2 Review of Systems: All systems reviewed & are unremarkable except as noted in HPI and below <Chey Nieves APRN - Last Filed: 07/14/24 02:21> PMFSH Past Medical History Medical History: Medical History Hyperlipidemia Essential hypertension Thyroid disorder Diabetes type 2, controlled <Libby Chacon PA-C - Last Filed: 07/15/24 19:15> Surgical History Surgical History: Surgical History History of removal of both ovaries <Libby Chacon PA-C - Last Filed: 07/15/24 19:15> Family History Family History: Family History Mother Colon cancer Sibling Colon cancer Other Hypertension <Libby Chacon PA-C - Last Filed: 07/15/24 19:15> Social History Social History: Social History Smoking status: Never smoker Alcohol intake: current Alcohol use details: occasional Substance use: never Substance use type: does not use Lack of Transportation: No Lack of Food: Never True Current Housing: I Have Housing Concerned About Future Housing: No Difficulty Paying Gas/Electric Bills: Decline to Answer Difficulty Paying for Meds: No Currently Unemployed: No Education: Master's Degree or Higher Difficulty w/ Childcare or Family Care: No Living arrangements: with family Occupation/Education: retired Spiritual care concerns: No Agree to blood products: Yes <Libby Chacon PA-C - Last Filed: 07/15/24 19:15> Exam 2 Narrative: GENERAL: Well appearing, well-nourished, non-toxic, in no acute distress. HEAD: Normocephalic, atraumatic. NECK: Supple. No adenopathy, no masses. RESPIRATORY: Airway patent, respirations nonlabored. Clear to auscultation bilaterally, no rales, rhonchi, wheezing. CARDIOVASCULAR: Regular rate and rhythm without murmurs, rubs, or gallops. Peripheral pulses 2+ and equal bilaterally. ABDOMINAL: Soft, nontender, nondistended, no hepatosplenomegaly. Normoactive BS. MUSCULOSKELETAL: Moves all extremities. Strength/ROM intact without gross deformities. SKIN: Warm, dry, normal color. No rashes. NEURO: A&O X3. Speech clear. Cranial nerves intact. No ataxic movements. PSYCHIATRIC: Appropriate mood and affect. Normal interaction. <Chey Nieves APRN - Last Filed: 07/14/24 02:21> Course CLINICAL SUPPORT SPECIALIST/PA Physician Supervision CLINICAL SUPPORT SPECIALIST does review patient with me who appears to have chest pain of unclear etiology. Advised calculating HEART score. It does appear high by report indicating need for admission for further work up. In this way, dose available for consultation while patient was in the emergency department but was directly involved with her care and did personally evaluate her. <Africa Vieyra MD - Last Filed: 07/14/24 18:28> Vital Signs Vital signs: Vital Signs Temperature 98.6 F 07/13/24 16:06 Pulse Rate 77 07/13/24 16:06 Respiratory Rate 18 07/13/24 16:06 Blood Pressure 151/86 H 07/13/24 16:06 Pulse Oximetry 98 07/13/24 16:06 Oxygen Delivery Room Air 07/13/24 16:06 Temperature 98.3 F 07/14/24 17:02 Pulse Rate 74 07/14/24 17:02 Respiratory Rate 16 07/14/24 17:02 Blood Pressure 158/70 H 07/14/24 17:02 Pulse Oximetry 98 07/14/24 17:02 Oxygen Delivery Room Air 07/13/24 22:17 <Libby Chacon PA-C - Last Filed: 07/15/24 19:15> Vital Signs Temperature 98.6 F 07/13/24 16:06 Pulse Rate 77 07/13/24 16:06 Respiratory Rate 18 07/13/24 16:06 Blood Pressure 151/86 H 07/13/24 16:06 Pulse Oximetry 98 07/13/24 16:06 Oxygen Delivery Room Air 07/13/24 16:06 Temperature 98.3 F 07/14/24 17:02 Pulse Rate 74 07/14/24 17:02 Respiratory Rate 16 07/14/24 17:02 Blood Pressure 158/70 H 07/14/24 17:02 Pulse Oximetry 98 07/14/24 17:02 Oxygen Delivery Room Air 07/13/24 22:17 <Chey Nieves APRN - Last Filed: 07/14/24 02:21> Vital Signs Temperature 98.6 F 07/13/24 16:06 Pulse Rate 77 07/13/24 16:06 Respiratory Rate 18 07/13/24 16:06 Blood Pressure 151/86 H 07/13/24 16:06 Pulse Oximetry 98 07/13/24 16:06 Oxygen Delivery Room Air 07/13/24 16:06 Temperature 98.3 F 07/14/24 17:02 Pulse Rate 74 07/14/24 17:02 Respiratory Rate 16 07/14/24 17:02 Blood Pressure 158/70 H 07/14/24 17:02 Pulse Oximetry 98 07/14/24 17:02 Oxygen Delivery Room Air 07/13/24 22:17 <Africa Vieyra MD - Last Filed: 07/14/24 18:28> MDM - Chest Pain MDM Narrative Medical decision making narrative: Pt is a 69 year old female that presents to the ER for chest pain and back pain. Reports this started this afternoon. She was seated at home when it started. The pain is achy in nature. She has not taken any pain medication. Labs Ordered: CBC, CMP, troponin, lipase, INR, PTT, COVID/flu/RSV swab, proBNP, TSH (pt has history of thyroid issues) Imaging Ordered: Chest x-ray Medications Ordered: 1 L normal saline IV bolus, nitro sublingual 0.4mg, Keflex 500 mg p.o. (d/t UTI), GI cocktail Results: Patient's CMP indicates an anion gap 13, alk phos of 135, and creatinine is 0.64, but is otherwise unremarkable. Her CBC results were unremarkable. Patient's urinalysis indicates leukocytes of 2+, and urine white blood cells 21-50. Her initial and 3 hour troponins were both unremarkable. Diagnosis: Atypical chest pain, urinary tract infection Risks: HEART score HEART Pathway for Early Discharge in Acute Chest Pain from [email or web address] on 07/13/2024 All calculations should be rechecked by clinician prior to use RESULT SUMMARY: 5 points HEART Pathway Score High risk 12-65% 30-day MACE Admit to hospital or observation. Further testing indicated. INPUTS: History ?> 1 = Moderately suspicious EKG ?> 1 = Non-specific repolarization disturbance Age ?> 2 = >=5 Risk factors ?> 1 = 1-2 risk factors Initial troponin ?> 0 = <=Normal limit Consults: cardiology (non-emergent) Patient Education/Shared MDM: Results of urinalysis shared with patient. Will give her a dose of Keflex here in the ER and give her 1 L normal saline IV bolus. 0015-Patient denies any improvement following nitro sublingual administration, although she reports her chest pain was only a 2/10 beforehand. Will give patient a GI cocktail to see if this helps relieve any of her symptoms. 0200-patient denies any improvement in her symptoms following GI cocktail. Spoke with hospitalist regarding patient. He was in agreement to admit patient for atypical chest pain workup. Patient will be admitted to [facility] with telemetry. Cardiology will be consulted, but not called at this time, as consult is not emergent at 0200. <Chey Nieves APRN - Last Filed: 07/14/24 02:21> Differential Diagnosis Differential diagnosis: Likely stable angina, atypical chest pain, costochondritis and chest pain <Chey Nieves APRN - Last Filed: 07/14/24 02:21> Lab Data Result diagrams: 07/13/24 16:18 07/13/24 16:18 <Libby Chacon PA-C - Last Filed: 07/15/24 19:15> Labs: Lab Results 07/13/24 07/13/24 07/13/24 Range/Units 16:18 18:47 21:30 WBC 5.0 (4.5-10.0) K/mm3 RBC 4.22 (4.2-5.4) M/mm3 Hgb 12.3 (12.0-15.0) g/dL Hct 38.3 (37.0-47.0) % MCV 90.8 (80-100) fl MCH 29.1 (26-34) pg MCHC 32.1 (32-36) g/dl RDW 13.9 (11.5-14.5) % Plt Count 324 (150-375) k/mm3 MPV 8.7 (7.4-10.4) fl Immature Gran % (Auto) 0.2 (0-0.5) % Neut % (Auto) 51.1 (45.5-73.1) % Lymph % (Auto) 38.9 (18.3-44.2) % [place] % (Auto) 5.6 (2.6-8.5) % Eos % (Auto) 3.6 (0-4.4) % Baso % (Auto) 0.6 (0.2-1.2) % Lymph # (Auto) 1.95 (0.9-3.2) K/mm3 [place] # (Auto) 0.3 (0.1-0.6) K/mm3 Eos # (Auto) 0.2 (0-0.3) K/mm3 Baso # (Auto) 0.0 (0.0-0.1) K/mm3 Abs Immat Gran (auto) 0.01 (0.00-0.031) K/mm3 Absolute Neuts (auto) 2.6 (1.3-6.7) K/mm3 Absolute Nucleated RBC 0.000 (0.0-0.012) K/mm3 Nucleated RBC % 0.0 (0.0-0.2) % PT 12.7 (11.1-14.7) Seconds INR 0.9 APTT 29.0 (22.3-36.8) Seconds Sodium 141 (137-145) mmol/L Potassium 3.6 (3.4-5.0) mmol/L Chloride 103 (98-107) mmol/L Carbon Dioxide 25 (22-30) mmol/L Anion Gap 13 H (4-12) mmol/L BUN 14 D (7-17) mg/dL Creatinine 0.64 L (0.7-1.0) mg/dL Estim Creat Clear Calc 74 ml/min Estimated GFR > 60 (59 - ) Glucose 91 (65-110) mg/dL Hemoglobin A1c 6.4 H (<5.7) % Calcium 9.6 (8.4-10.2) mg/dL Total Bilirubin 0.9 (0.2-1.3) mg/dL AST 24 (14-36) U/L ALT 28 (6-35) U/L Alkaline Phosphatase 135 H (38-126) U/L Troponin I < 0.012 < 0.012 (0.000-0.034) ng/mL NT-Pro-B Natriuret Pep 21 (19.9-100) pg/mL Total Protein 9.0 H (6.3-8.2) g/dL Albumin 4.6 (3.5-5.1) g/dL Triglycerides 97 (<150) mg/dL Cholesterol 186 (0-200) mg/dL LDL Cholesterol Direct 60 mg/dL HDL Direct 94 mg/dL Lipase 140 (23-300) U/L TSH (Reflex) 1.560 (0.465-4.68) uIU/mL Urine Color Yellow (Yellow) Urine Appearance Clear (Clear) Urine pH 5.5 (5.0-9.0) Ur Specific [place] 1.018 (1.001-1.035) Urine Protein Negative (Negative) mg/dL Urine Glucose (UA) Negative (Negative) mg/dL Urine Ketones Trace H (Negative) mg/dL Ur Blood (Man) Negative (Negative) Urine Nitrate Negative (Negative) Urine Bilirubin Negative (Negative) Urine Urobilinogen 0.2 (<2.0) mg/dL Leukocyte Esterase Rfl 2+ H (Negative) YOON/UL Urine RBC 0-2 (0-2) /hpf Urine WBC 21-50 H (0-3) /hpf Ur Squamous Epith Cells Occasional (Few) /hpf Urine Bacteria 1+ H /hpf Urine Casts 0-2 Influenza A (RT-PCR) (Negative) Influenza B (RT-PCR) (Negative) RSV (RT-PCR) (Negative) SARS-CoV-2 RNA (RT-PCR) (Negative) 07/13/24 Range/Units 22:13 WBC (4.5-10.0) K/mm3 RBC (4.2-5.4) M/mm3 Hgb (12.0-15.0) g/dL Hct (37.0-47.0) % MCV (80-100) fl MCH (26-34) pg MCHC (32-36) g/dl RDW (11.5-14.5) % Plt Count (150-375) k/mm3 MPV (7.4-10.4) fl Immature Gran % (Auto) (0-0.5) % Neut % (Auto) (45.5-73.1) % Lymph % (Auto) (18.3-44.2) % [place] % (Auto) (2.6-8.5) % Eos % (Auto) (0-4.4) % Baso % (Auto) (0.2-1.2) % Lymph # (Auto) (0.9-3.2) K/mm3 [place] # (Auto) (0.1-0.6) K/mm3 Eos # (Auto) (0-0.3) K/mm3 Baso # (Auto) (0.0-0.1) K/mm3 Abs Immat Gran (auto) (0.00-0.031) K/mm3 Absolute Neuts (auto) (1.3-6.7) K/mm3 Absolute Nucleated RBC (0.0-0.012) K/mm3 Nucleated RBC % (0.0-0.2) % PT (11.1-14.7) Seconds INR APTT (22.3-36.8) Seconds Sodium (137-145) mmol/L Potassium (3.4-5.0) mmol/L Chloride (98-107) mmol/L Carbon Dioxide (22-30) mmol/L Anion Gap (4-12) mmol/L BUN (7-17) mg/dL Creatinine (0.7-1.0) mg/dL Estim Creat Clear Calc ml/min Estimated GFR (59 - ) Glucose (65-110) mg/dL Hemoglobin A1c (<5.7) % Calcium (8.4-10.2) mg/dL Total Bilirubin (0.2-1.3) mg/dL AST (14-36) U/L ALT (6-35) U/L Alkaline Phosphatase (38-126) U/L Troponin I (0.000-0.034) ng/mL NT-Pro-B Natriuret Pep (19.9-100) pg/mL Total Protein (6.3-8.2) g/dL Albumin (3.5-5.1) g/dL Triglycerides (<150) mg/dL Cholesterol (0-200) mg/dL LDL Cholesterol Direct mg/dL HDL Direct mg/dL Lipase (23-300) U/L TSH (Reflex) (0.465-4.68) uIU/mL Urine Color (Yellow) Urine Appearance (Clear) Urine pH (5.0-9.0) Ur Specific [place] (1.001-1.035) Urine Protein (Negative) mg/dL Urine Glucose (UA) (Negative) mg/dL Urine Ketones (Negative) mg/dL Ur Blood (Man) (Negative) Urine Nitrate (Negative) Urine Bilirubin (Negative) Urine Urobilinogen (<2.0) mg/dL Leukocyte Esterase Rfl (Negative) YOON/UL Urine RBC (0-2) /hpf Urine WBC (0-3) /hpf Ur Squamous Epith Cells (Few) /hpf Urine Bacteria /hpf Urine Casts Influenza A (RT-PCR) Negative (Negative) Influenza B (RT-PCR) Negative (Negative) RSV (RT-PCR) Negative (Negative) SARS-CoV-2 RNA (RT-PCR) Negative (Negative) <Libby Chacon PA-C - Last Filed: 07/15/24 19:15> Lab Results 07/13/24 07/13/24 07/13/24 Range/Units 16:18 18:47 21:30 WBC 5.0 (4.5-10.0) K/mm3 RBC 4.22 (4.2-5.4) M/mm3 Hgb 12.3 (12.0-15.0) g/dL Hct 38.3 (37.0-47.0) % MCV 90.8 (80-100) fl MCH 29.1 (26-34) pg MCHC 32.1 (32-36) g/dl RDW 13.9 (11.5-14.5) % Plt Count 324 (150-375) k/mm3 MPV 8.7 (7.4-10.4) fl Immature Gran % (Auto) 0.2 (0-0.5) % Neut % (Auto) 51.1 (45.5-73.1) % Lymph % (Auto) 38.9 (18.3-44.2) % [place] % (Auto) 5.6 (2.6-8.5) % Eos % (Auto) 3.6 (0-4.4) % Baso % (Auto) 0.6 (0.2-1.2) % Lymph # (Auto) 1.95 (0.9-3.2) K/mm3 [place] # (Auto) 0.3 (0.1-0.6) K/mm3 Eos # (Auto) 0.2 (0-0.3) K/mm3 Baso # (Auto) 0.0 (0.0-0.1) K/mm3 Abs Immat Gran (auto) 0.01 (0.00-0.031) K/mm3 Absolute Neuts (auto) 2.6 (1.3-6.7) K/mm3 Absolute Nucleated RBC 0.000 (0.0-0.012) K/mm3 Nucleated RBC % 0.0 (0.0-0.2) % PT 12.7 (11.1-14.7) Seconds INR 0.9 APTT 29.0 (22.3-36.8) Seconds Sodium 141 (137-145) mmol/L Potassium 3.6 (3.4-5.0) mmol/L Chloride 103 (98-107) mmol/L Carbon Dioxide 25 (22-30) mmol/L Anion Gap 13 H (4-12) mmol/L BUN 14 D (7-17) mg/dL Creatinine 0.64 L (0.7-1.0) mg/dL Estim Creat Clear Calc 74 ml/min Estimated GFR > 60 (59 - ) Glucose 91 (65-110) mg/dL Hemoglobin A1c 6.4 H (<5.7) % Calcium 9.6 (8.4-10.2) mg/dL Total Bilirubin 0.9 (0.2-1.3) mg/dL AST 24 (14-36) U/L ALT 28 (6-35) U/L Alkaline Phosphatase 135 H (38-126) U/L Troponin I < 0.012 < 0.012 (0.000-0.034) ng/mL NT-Pro-B Natriuret Pep 21 (19.9-100) pg/mL Total Protein 9.0 H (6.3-8.2) g/dL Albumin 4.6 (3.5-5.1) g/dL Triglycerides 97 (<150) mg/dL Cholesterol 186 (0-200) mg/dL LDL Cholesterol Direct 60 mg/dL HDL Direct 94 mg/dL Lipase 140 (23-300) U/L TSH (Reflex) 1.560 (0.465-4.68) uIU/mL Urine Color Yellow (Yellow) Urine Appearance Clear (Clear) Urine pH 5.5 (5.0-9.0) Ur Specific [place] 1.018 (1.001-1.035) Urine Protein Negative (Negative) mg/dL Urine Glucose (UA) Negative (Negative) mg/dL Urine Ketones Trace H (Negative) mg/dL Ur Blood (Man) Negative (Negative) Urine Nitrate Negative (Negative) Urine Bilirubin Negative (Negative) Urine Urobilinogen 0.2 (<2.0) mg/dL Leukocyte Esterase Rfl 2+ H (Negative) YOON/UL Urine RBC 0-2 (0-2) /hpf Urine WBC 21-50 H (0-3) /hpf Ur Squamous Epith Cells Occasional (Few) /hpf Urine Bacteria 1+ H /hpf Urine Casts 0-2 Influenza A (RT-PCR) (Negative) Influenza B (RT-PCR) (Negative) RSV (RT-PCR) (Negative) SARS-CoV-2 RNA (RT-PCR) (Negative) 07/13/24 Range/Units 22:13 WBC (4.5-10.0) K/mm3 RBC (4.2-5.4) M/mm3 Hgb (12.0-15.0) g/dL Hct (37.0-47.0) % MCV (80-100) fl MCH (26-34) pg MCHC (32-36) g/dl RDW (11.5-14.5) % Plt Count (150-375) k/mm3 MPV (7.4-10.4) fl Immature Gran % (Auto) (0-0.5) % Neut % (Auto) (45.5-73.1) % Lymph % (Auto) (18.3-44.2) % [place] % (Auto) (2.6-8.5) % Eos % (Auto) (0-4.4) % Baso % (Auto) (0.2-1.2) % Lymph # (Auto) (0.9-3.2) K/mm3 [place] # (Auto) (0.1-0.6) K/mm3 Eos # (Auto) (0-0.3) K/mm3 Baso # (Auto) (0.0-0.1) K/mm3 Abs Immat Gran (auto) (0.00-0.031) K/mm3 Absolute Neuts (auto) (1.3-6.7) K/mm3 Absolute Nucleated RBC (0.0-0.012) K/mm3 Nucleated RBC % (0.0-0.2) % PT (11.1-14.7) Seconds INR APTT (22.3-36.8) Seconds Sodium (137-145) mmol/L Potassium (3.4-5.0) mmol/L Chloride (98-107) mmol/L Carbon Dioxide (22-30) mmol/L Anion Gap (4-12) mmol/L BUN (7-17) mg/dL Creatinine (0.7-1.0) mg/dL Estim Creat Clear Calc ml/min Estimated GFR (59 - ) Glucose (65-110) mg/dL Hemoglobin A1c (<5.7) % Calcium (8.4-10.2) mg/dL Total Bilirubin (0.2-1.3) mg/dL AST (14-36) U/L ALT (6-35) U/L Alkaline Phosphatase (38-126) U/L Troponin I (0.000-0.034) ng/mL NT-Pro-B Natriuret Pep (19.9-100) pg/mL Total Protein (6.3-8.2) g/dL Albumin (3.5-5.1) g/dL Triglycerides (<150) mg/dL Cholesterol (0-200) mg/dL LDL Cholesterol Direct mg/dL HDL Direct mg/dL Lipase (23-300) U/L TSH (Reflex) (0.465-4.68) uIU/mL Urine Color (Yellow) Urine Appearance (Clear) Urine pH (5.0-9.0) Ur Specific [place] (1.001-1.035) Urine Protein (Negative) mg/dL Urine Glucose (UA) (Negative) mg/dL Urine Ketones (Negative) mg/dL Ur Blood (Man) (Negative) Urine Nitrate (Negative) Urine Bilirubin (Negative) Urine Urobilinogen (<2.0) mg/dL Leukocyte Esterase Rfl (Negative) YOON/UL Urine RBC (0-2) /hpf Urine WBC (0-3) /hpf Ur Squamous Epith Cells (Few) /hpf Urine Bacteria /hpf Urine Casts Influenza A (RT-PCR) Negative (Negative) Influenza B (RT-PCR) Negative (Negative) RSV (RT-PCR) Negative (Negative) SARS-CoV-2 RNA (RT-PCR) Negative (Negative) <Chey Nieves, DIRECTOR OF PATIENT FINANCIAL SERVICES - Last Filed: 07/14/24 02:21> Lab Results 07/13/24 07/13/24 07/13/24 Range/Units 16:18 18:47 21:30 WBC 5.0 (4.5-10.0) K/mm3 RBC 4.22 (4.2-5.4) M/mm3 Hgb 12.3 (12.0-15.0) g/dL Hct 38.3 (37.0-47.0) % MCV 90.8 (80-100) fl MCH 29.1 (26-34) pg MCHC 32.1 (32-36) g/dl RDW 13.9 (11.5-14.5) % Plt Count 324 (150-375) k/mm3 MPV 8.7 (7.4-10.4) fl Immature Gran % (Auto) 0.2 (0-0.5) % Neut % (Auto) 51.1 (45.5-73.1) % Lymph % (Auto) 38.9 (18.3-44.2) % [place] % (Auto) 5.6 (2.6-8.5) % Eos % (Auto) 3.6 (0-4.4) % Baso % (Auto) 0.6 (0.2-1.2) % Lymph # (Auto) 1.95 (0.9-3.2) K/mm3 [place] # (Auto) 0.3 (0.1-0.6) K/mm3 Eos # (Auto) 0.2 (0-0.3) K/mm3 Baso # (Auto) 0.0 (0.0-0.1) K/mm3 Abs Immat Gran (auto) 0.01 (0.00-0.031) K/mm3 Absolute Neuts (auto) 2.6 (1.3-6.7) K/mm3 Absolute Nucleated RBC 0.000 (0.0-0.012) K/mm3 Nucleated RBC % 0.0 (0.0-0.2) % PT 12.7 (11.1-14.7) Seconds INR 0.9 APTT 29.0 (22.3-36.8) Seconds Sodium 141 (137-145) mmol/L Potassium 3.6 (3.4-5.0) mmol/L Chloride 103 (98-107) mmol/L Carbon Dioxide 25 (22-30) mmol/L Anion Gap 13 H (4-12) mmol/L BUN 14 D (7-17) mg/dL Creatinine 0.64 L (0.7-1.0) mg/dL Estim Creat Clear Calc 74 ml/min Estimated GFR > 60 (59 - ) Glucose 91 (65-110) mg/dL Hemoglobin A1c 6.4 H (<5.7) % Calcium 9.6 (8.4-10.2) mg/dL Total Bilirubin 0.9 (0.2-1.3) mg/dL AST 24 (14-36) U/L ALT 28 (6-35) U/L Alkaline Phosphatase 135 H (38-126) U/L Troponin I < 0.012 < 0.012 (0.000-0.034) ng/mL NT-Pro-B Natriuret Pep 21 (19.9-100) pg/mL Total Protein 9.0 H (6.3-8.2) g/dL Albumin 4.6 (3.5-5.1) g/dL Triglycerides 97 (<150) mg/dL Cholesterol 186 (0-200) mg/dL LDL Cholesterol Direct 60 mg/dL HDL Direct 94 mg/dL Lipase 140 (23-300) U/L TSH (Reflex) 1.560 (0.465-4.68) uIU/mL Urine Color Yellow (Yellow) Urine Appearance Clear (Clear) Urine pH 5.5 (5.0-9.0) Ur Specific [place] 1.018 (1.001-1.035) Urine Protein Negative (Negative) mg/dL Urine Glucose (UA) Negative (Negative) mg/dL Urine Ketones Trace H (Negative) mg/dL Ur Blood (Man) Negative (Negative) Urine Nitrate Negative (Negative) Urine Bilirubin Negative (Negative) Urine Urobilinogen 0.2 (<2.0) mg/dL Leukocyte Esterase Rfl 2+ H (Negative) YOON/UL Urine RBC 0-2 (0-2) /hpf Urine WBC 21-50 H (0-3) /hpf Ur Squamous Epith Cells Occasional (Few) /hpf Urine Bacteria 1+ H /hpf Urine Casts 0-2 Influenza A (RT-PCR) (Negative) Influenza B (RT-PCR) (Negative) RSV (RT-PCR) (Negative) SARS-CoV-2 RNA (RT-PCR) (Negative) 07/13/24 Range/Units 22:13 WBC (4.5-10.0) K/mm3 RBC (4.2-5.4) M/mm3 Hgb (12.0-15.0) g/dL Hct (37.0-47.0) % MCV (80-100) fl MCH (26-34) pg MCHC (32-36) g/dl RDW (11.5-14.5) % Plt Count (150-375) k/mm3 MPV (7.4-10.4) fl Immature Gran % (Auto) (0-0.5) % Neut % (Auto) (45.5-73.1) % Lymph % (Auto) (18.3-44.2) % [place] % (Auto) (2.6-8.5) % Eos % (Auto) (0-4.4) % Baso % (Auto) (0.2-1.2) % Lymph # (Auto) (0.9-3.2) K/mm3 [place] # (Auto) (0.1-0.6) K/mm3 Eos # (Auto) (0-0.3) K/mm3 Baso # (Auto) (0.0-0.1) K/mm3 Abs Immat Gran (auto) (0.00-0.031) K/mm3 Absolute Neuts (auto) (1.3-6.7) K/mm3 Absolute Nucleated RBC (0.0-0.012) K/mm3 Nucleated RBC % (0.0-0.2) % PT (11.1-14.7) Seconds INR APTT (22.3-36.8) Seconds Sodium (137-145) mmol/L Potassium (3.4-5.0) mmol/L Chloride (98-107) mmol/L Carbon Dioxide (22-30) mmol/L Anion Gap (4-12) mmol/L BUN (7-17) mg/dL Creatinine (0.7-1.0) mg/dL Estim Creat Clear Calc ml/min Estimated GFR (59 - ) Glucose (65-110) mg/dL Hemoglobin A1c (<5.7) % Calcium (8.4-10.2) mg/dL Total Bilirubin (0.2-1.3) mg/dL AST (14-36) U/L ALT (6-35) U/L Alkaline Phosphatase (38-126) U/L Troponin I (0.000-0.034) ng/mL NT-Pro-B Natriuret Pep (19.9-100) pg/mL Total Protein (6.3-8.2) g/dL Albumin (3.5-5.1) g/dL Triglycerides (<150) mg/dL Cholesterol (0-200) mg/dL LDL Cholesterol Direct mg/dL HDL Direct mg/dL Lipase (23-300) U/L TSH (Reflex) (0.465-4.68) uIU/mL Urine Color (Yellow) Urine Appearance (Clear) Urine pH (5.0-9.0) Ur Specific [place] (1.001-1.035) Urine Protein (Negative) mg/dL Urine Glucose (UA) (Negative) mg/dL Urine Ketones (Negative) mg/dL Ur Blood (Man) (Negative) Urine Nitrate (Negative) Urine Bilirubin (Negative) Urine Urobilinogen (<2.0) mg/dL Leukocyte Esterase Rfl (Negative) YOON/UL Urine RBC (0-2) /hpf Urine WBC (0-3) /hpf Ur Squamous Epith Cells (Few) /hpf Urine Bacteria /hpf Urine Casts Influenza A (RT-PCR) Negative (Negative) Influenza B (RT-PCR) Negative (Negative) RSV (RT-PCR) Negative (Negative) SARS-CoV-2 RNA (RT-PCR) Negative (Negative) <Africa Vieyra MD - Last Filed: 07/14/24 18:28> Imaging Data Radiologist's impression: ITS Impressions Chest X-Ray 07/13/24 16:39 IMPRESSION: 1. No acute cardiopulmonary disease. <Libby Chacon PA-C - Last Filed: 07/15/24 19:15> Critical Care Time Critical Care Time Critical Care Time: No <Libby Chacon PA-C - Last Filed: 07/15/24 19:15> Discharge Plan Discharge Clinical Impression: Chest pain Qualifiers: Chest pain type: unspecified Qualified Code(s): R07.9 - Chest pain, unspecified <Libby Chacon PA-C - Last Filed: 07/15/24 19:15> Patient Disposition: Still a Patient <Libby Chacon PA-C - Last Filed: 07/15/24 19:15> Condition: Stable <Libby Chacon PA-C - Last Filed: 07/15/24 19:15>
[2024-07-13 18:40] VITALS: BP 196/92; PULSE 86; RESP 20; O2SAT 100
--- NOTE | 2024-07-13 18:42 | ECG_ITS ---
Test Date: 2024-07-13 18:45:37 Measurements Intervals [place] Rate: 73 P: 7 TX: 122 QRS: -5 QRSD: 98 T: 2 QT: 388 QTc: 430 Interpretive Statements SINUS RHYTHM LEFT VENTRICULAR HYPERTROPHY MINIMAL Q WAVES- HIGH LATERAL LEADS NONSPECIFIC T-WAVE ABNORMALITY- ANTEROLAT/INF LEADS BASELINE ARTIFACT- I, II, III, AVR, AVL, AVF BORDERLINE ECG Compared to ECG 07/13/2024 16:15:01 NO SIGNIFICANT CHANGE Electronically Signed On 07-13-2024 20:28:32 DIRECTORY CLERK by Ethan Mcdonough D.O.
[2024-07-13 19:22] LABS: Troponin I < 0.012 ng/mL (0.000-0.034)
[2024-07-13 21:48] LABS: Add Urine Microscopic? YES; Appearance Urine Clear (Clear); Bacteria Urine 1+ /hpf; Bilirubin Urine Negative (Negative); Blood Urine Negative (Negative); Color Urine Yellow (Yellow); Glucose Urine UA Negative (Negative); Ketones Urine Trace mg/dL (Negative); Leukocyte Esterase Ur 2+ LEU/UL (Negative); Nitrate Urine Negative (Negative); Non Pathogenic Casts 0-2; Protein Urine Negative (Negative); RBC Urine 0-2 /hpf (0-2); Specific Grav Ur 1.018 (1.001-1.035); Squamous Epithelial Cell Urine Occasional /hpf (Few); Urobilinogen Urine 0.2 mg/dL (<2.0); WBC Urine 21-50 /hpf (0-3); pH Urine 5.5 (5.0-9.0)
--- OUTSIDE RECORDS SUMMARY | 2024-07-13 21:56 | XMS_ITS | Referral Summary ---
Author Organization [email or web address] Address [address] [place] [address] Care Team Providers Care Framing Mechanic Name Role Phone Jayden Burgess MD Primary Care Provider Source Comments [email or web address],non-owned Affiliates and Associated Physician Practices is amultiple site organization consisting of ambulatory clinics and hospital sitesin [place], [place], [place] and [place]. This disclosure is being madepursuant to the Care Everywhere program and may not contain all information available regarding this patient. Last updated 18.[email or web address] Allergies No known active allergies Medications * [...] of Treatment Not on file Care Teams Framing Mechanic Relationship Specialty Start Date End Date Jayden Burgess MD [address] [place] [id number] PCP - General 08/28/22
--- OUTSIDE RECORDS SUMMARY | 2024-07-13 21:57 | XMS_ITS | Clinical Summary ---
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 Gender Identity Not on file Sexual Orientation Not on file Obstetrics History Last Filed Vital Signs Vital Sign Reading Time Taken Comments Blood Pressure 142/77 04/14/2015 10:47 AM CREDIT CARD CLERK Pulse 66 04/14/2015 10:47 AM CREDIT CARD CLERK Temperature 35.9 C (96.7 F) 02/13/2024 12:38 PM CDT Respiratory Rate - - Oxygen Saturation 94% 04/14/2015 10:47 AM CREDIT CARD CLERK Inhaled Oxygen Concentration - - Weight 86.8 kg (191 lb 6.4 oz) 02/13/2024 12:38 PM CDT Height 162.6 cm (5' 4 ) 04/14/2015 10:47 AM CREDIT CARD CLERK Body Mass Index 32.85 04/14/2015 10:47 AM CREDIT CARD CLERK Plan of Treatment Health Maintenance Due Date [...] 08/13/2023, 01/03/2023 Insurance [employer] Care Teams Director Of Diagnostic Imaging Relationship Specialty Start Date End Date Moon Choi NP PCP - General Nurse Practitioner 08/05/23
--- OUTSIDE RECORDS SUMMARY | 2024-07-13 21:57 | XMS_ITS | Clinical Summary ---
Author Organization [facility] Address [address] [facility] [place] [address] Care Team Providers Care Structural Metal Worker Name Role Phone Jayden Burgess MD Primary Care Provider [phone] Source Comments [facility],non-owned Affiliates and Associated Physician Practices is amultiple site organization consisting of ambulatory clinics and hospital sitesin [place], [place], [place] and [place]. This disclosure is being madepursuant to the Care Everywhere program and may not contain all information available regarding this patient. Last updated 18.[facility] Allergies No known active allergies Medications * [...] age to complete this topic Care Teams Structural Metal Worker Relationship Specialty Start Date End Date Jayden Burgess MD [address] [place] [address] PCP - General 08/28/22
--- OUTSIDE RECORDS SUMMARY | 2024-07-13 21:57 | XMS_ITS | Clinical Summary ---
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
--- OUTSIDE RECORDS SUMMARY | 2024-07-13 21:57 | XMS_ITS | Referral Summary ---
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 Gender Identity Not on file Sexual Orientation Not on file Last Filed Vital Signs Vital Sign Reading Time Taken Comments Blood Pressure 142/77 04/14/2015 10:47 AM INTAKE SPECIALIST Pulse 66 04/14/2015 10:47 AM INTAKE SPECIALIST Temperature 35.9 C (96.7 F) 02/13/2024 12:38 PM CDT Respiratory Rate - - Oxygen Saturation 94% 04/14/2015 10:47 AM INTAKE SPECIALIST Inhaled Oxygen Concentration - - Weight 86.8 kg (191 lb 6.4 oz) 02/13/2024 12:38 PM CDT Height 162.6 cm (5' 4 ) 04/14/2015 10:47 AM INTAKE SPECIALIST Body Mass Index 32.85 04/14/2015 10:47 AM INTAKE SPECIALIST Plan of Treatment Not on file Insurance [employer] [address] Care Teams Hat Stock Laminating Machine Operator Relationship Specialty Start Date End Date Moon Choi NP PCP - General Nurse Practitioner 08/05/23
--- OUTSIDE RECORDS SUMMARY | 2024-07-13 21:57 | XMS_ITS | Patient Health Summary ---
Author Organization [facility] Address [address] [facility] [place] [address] Care Team Providers Care Unemployment Claims Adjudicator Name Role Phone Jayden Burgess MD Primary Care Provider Note from [facility],non-owned Affiliates and Associated Physician Practices is amultiple site organization consisting of ambulatory clinics and hospital sitesin [place], [place], [place] and [place]. This disclosure is being madepursuant to the Care Everywhere program and may not contain all information available regarding this patient. Last updated 18.[facility] Allergies No known active allergies Medications * [...] 09/17/2022) Performed for Frequent urination, Microhematuria * [place] MSR PVR U&/BLADD CAPCTY US NON(Performed 09/17/2022) Performed for Frequent urination * URINALYSIS AUTO - POINT OF CARE (AMB) [facility](Performed 09/17/2022) Performed for Frequent urination * CULTURE URINE REFLEXED III(Performed 09/17/2022) Results * URINALYSIS W/MICROSCOPIC REFLEX TO CULTURE (09/17/2022 10:30 AM CDT) Color UA YELLOW YELLOW [facility] Appearance CLEAR CLEAR [facility] Specific [place] UA 1.024 1.001 - 1.035 [facility] pH [...] elements seen were reported. Test Performed at: [facility] [id number] ALFONZO ALINEZ MD Urine URINE SPECIMEN OBTAINED BY CLEAN CATCH PROCEDURE / Unknown 09/17/2022 10:30 AM CDT 09/18/2022 2:26 AM CDT Cristine Rios APRN-CULINARY INSTRUCTOR LAB - URINALY SIS ORDERABLES Performing Organization Address [facility] Co de Phone Number [facility] [phone] [place] [address] * [place] MSR PVR U&/BLADD CAPCTY US NON (09/17/2022 10:14 AM CDT) Narrative Archana Barton - 09/17/2022 10:14 AM CDT Archana Barton 09/17/2022 10:14 AM PVR = 0 mL Cristine Rios APRN-CULINARY INSTRUCTOR PROCEDURE/MIN OR SURGICAL ORDERABLES * URINALYSIS AUTO - POINT OF CARE (AMB) [facility] (09/17/2022) Glucose UA - Bilirubin UA POCT - Ketones UA POCT - Specific [place] UA 1.025 Blood Urine POCT +- pH UA 5.5 Protein UA +- Urobilinogen UA - Nitrite UA - WBC UA - Urine URINE / Unknown 09/17/2022 Cristine Rios APRN-CULINARY INSTRUCTOR LAB - POINT O F CARE ORDERABLES * CULTURE URINE REFLEXED III (09/17/2022) Reflexive Urine Culture See Below [facility] Comment: NO CULTURE INDICATED Test Performed at: [facility] [employer] [id number] ALFONZO LAINEZ MD 09/17/2022 09/18/2022 2:2 6 AM CDT Cristine Rios APRN-CULINARY INSTRUCTOR LAB - MICROBI OLOGY ORDERABLES Performing Organization Address City/[facility]/ZIP Co de Phone Number [facility] [address] [place] [address] Care Teams Unemployment Claims Adjudicator Relationship Specialty Start Date End Date Jayden Burgess MD [address] [place] [phone] PCP - General 08/28/22
--- OUTSIDE RECORDS SUMMARY | 2024-07-13 21:57 | XMS_ITS | Clinical Summary ---
Author Organization [facility] Address [facility] [place] [address] Care Team Providers Care Household Worker Name Role Phone Unavailable Primary Care Provider [...]
--- OUTSIDE RECORDS SUMMARY | 2024-07-13 21:57 | XMS_ITS | Continuity of Care Document ---
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 examScreening Dillon Brisa. [address] [facility], [place], [place], [address] . tel: [phone] Referring Provider: Momo Blackburn, [address] [place] [address], [place], [address] . tel:[phone] [facility], [address], [place], [place], [address] , [place] tel: [phone] [facility] Sprain of ligaments of cervical spineObesityLum bago Dillon Brisa. [address] [facility], [place], [place], [address] . tel: [phone] Referring Provider: Momo Blackburn, [address] [place] [address], [place], [address] . tel:[phone] [facility], [address], [place], [place], [address] , [place] tel: [phone] [facility] Hypertension, BenignMixed HyperlipidemiaE picondylitis, lateralLateral cutaneous femoral nerve of thigh compression or syndrome 4 Dillon Barr. [address] [facility], [place], [place], [address] . tel: [phone] Referring Provider: Momo Blackburn, [address] [facility], [place], [address] . tel:[phone] [facility], [address], [place], [place], [address] , [place] tel: [phone] [facility] Mammogram, Screening 4 Dillon Barr. [address] [place], [place], [address] . tel: [phone] [facility], [address], [place], [place], [address] , [place] tel: [phone] [facility] 4 Dillon Barr. [address] [facility], [place], [place], [address] . tel: [phone] Referring Provider: Momo Blackburn, [address] [facility], [place], [address] . tel:[phone] [facility], [address], [place], [address] , [place] tel: [phone] [facility] Hypertension, BenignMixed HyperlipidemiaL umbago 3 Dillon Barr. [address] [place], [place], [address] . tel: [phone] Referring Provider: Momo Blackburn, [facility] [facility], [place], [address] . tel:[phone] [facility], [address], [place], [place], [address] , [place] tel: [phone] [facility] 3 Dillon Barr. [address] [facility], [place], [place], [address] . tel: [phone] Referring Provider: Momo Blackburn, [address] [facility], [place], [address] . tel:[phone] [facility], [address], [place], [place], [address] , [place] tel: [phone] [facility] Spasm of muscleLumbago 0 3 Dillon Barr. [address] [facility], [place], [place], [address] . tel: [phone] Referring Provider: Momo Blackburn, [facility] [facility], [place], [address] . tel:[phone] [facility], [address], [place], [address] , [place] tel: [phone] [facility] Benign essential hypertensionMix ed hyperlipidemiaA bnormal blood test 3 Dillon Ledezma. [address] [facility], [place], [place], [address] . tel: [phone] Referring Provider: Momo Blackburn, [address] [facility], [place], [address] . tel:[phone] [facility], [address], [place], [place], [address] , [place] tel: [phone] [facility] Cervical paraspinal muscle spasm 3 Dillon Barr. [address] [facility], [place], [place], [address] . tel: [phone] Referring Provider: Momo Blackburn, [address] [facility], [place], [address] . tel:[phone] [facility], [address], [place], [place], [address] , [place] tel: [phone] [facility] Benign essential hypertensionMix ed hyperlipidemiaC hronic major depressive disorderSkin punctureNEED FOR PROPHYLACTIC VACCINATION WITH COMBINED DIPHTHERIA-TETA NUS-PERTUSSIS (DTP) (DTAP) VACCINE 3 Dillon Ledezma. [address] [place], [place], [address] . tel: [phone] Referring Provider: Momo Blackburn, [address] [facility], [place], [address] . tel:[phone] [facility], [address], [place], [place], [address] , [place] tel: [phone] [facility] Benign essential hypertensionGen eralized anxiety disorderDepress ionLumbago 3 Dillon Barr. [address] [facility], [place], [place], [address] . tel: [phone] Referring Provider: Momo Blackburn, [address] [facility], [place], [address] . tel:[phone] [facility], [address], [place], [place], [address] , [place] tel: [phone] [facility] Anxiety attackLumbago 3 Dillon Barr. [address] [place], [place], [address] . tel: [phone] Referring Provider: Momo Blackburn, [address] [facility], [place], [address] . tel:[phone] [facility], [address], [place], [address] , [place] tel: [phone] [facility] Anxiety attack Apr- 7-201 3 Dillon Barr. [address] [facility], [place], [place], [address] . tel: [phone] Referring Provider: Momo Blackburn, [address] [facility], [place], [address] . tel:[phone] [facility], [address], [place], [address] , [place] tel: [phone] [facility] Benign essential hypertensionMix ed hyperlipidemiaB enign essential hypertensionMix ed hyperlipidemia 1201 2 Dillon Barr. [address] [facility], [place], [place], [address] . tel: [phone] Referring Provider: Momo Blackburn, [address] [facility], [place], [address] . tel:[phone] [facility], [address], [place], [place], [address] , [place] tel: [phone] [facility] Strain of knee and leg, right Feb-2 0-201 2 Dillon Ledezma. [address] [place], [place], [address] . tel: [phone] Referring Provider: Momo Blackburn, [address] [facility], [place], [address] . tel:[phone] [facility], [address], [place], [place], [address] , [place] tel: [phone] [facility] Benign essential hypertensionMix ed hyperlipidemiaS prain of medial collateral ligament of knee Feb-0 7-201 2 Dillon Ledezma. [address] [place], [place], [address] . tel: [phone] Referring Provider: Momo Blackburn, [address] [facility], [place], [address] . tel:[phone] Family History Family Member Type Diagnosis Age [...] Insurance type Covered democrat ID Authoriza tion(s) [facility] ADV[facility] PPO MB [id number] [facility] AD[facility] PPO MB [id number] [employer] CI [id number] [employer] CI [id number] [employer] OPEN ACCESS CI [id number] Social History Type Description Quantity Date Captured [...] counseling completed Referral Ordered: Arleen -Sleep Studies [facility] (related to Snoring) ordered Referral Referred To: Arleen [address] [place], [phone] Ordered: Referrals: Sleep Studies. Arleen. Location: [facility]. Evaluation/diagnostic/treatment - Level 3 ordered Referral Ordered: NELLY Prado -Urology [facility] (related to Polyuria) ordered Referral Referred To: NELLY Prado [address] [place], [place], [phone] Ordered: Referrals: Urology. NELLY Prado. Location: [facility]. Evaluation/diagnostic/treatment - Level 3 ordered Referral Referred To: [facility] [employer]
[address], [phone] Ordered: X-RAY EXAM OF SHOULDER, COMPLETE Right ordered Referral Referred To: [facility] [employer]
[address], [phone] Ordered: X-RAY EXAM OF HUMERUS, MIN 2 VIEWS Right ordered Referral Referred To: Moise Wall MD [address] [place], [phone] Ordered: Referrals: Ophthalmology. Moise Wall MD. Evaluation/diagnostic/treatment - Level 3 Appointment date/timeframe: 03/12/2022 ordered Referral Referred To: Maryam Rios DPM [address] [place], [phone] Ordered: Referrals: Podiatry. Maryam Rios DPM. Evaluation/diagnostic/treatment - Level 3 Appointment date/timeframe: 01/29/2022 ordered Referral Ordered: Alexus Chappell -Power [employer]ic (related to Type 2 diabetes mellitus without complication, without long-term current use of insulin) ordered Referral Referred To: Alexus Chappell Ordered: Referrals: Power Saw [employer]ic. Alexus Chappell. Location: [facility] [address] [facility] [address] [place] [address]. Evaluation/diagnostic/treatment - Level 3 Appointment date/timeframe: 11/08/2021 ordered Referral Referred To: [facility]22 [employer]
[address] [place], [phone] Ordered: Bone density study of axial skeleton ordered Referral Referred To: [facility] [employer]
[address] [place], [phone] Ordered: COMPUTED TOMOGRAPHY, BONE MINERAL DENSITY STUDY, 1 OR MORE SITES AXIAL SKELETON( ordered Referral Referred To: 2022 [employer]
[facility] [address] [place], [phone] Ordered: X-RAY LUMBAR SPINE, COMPLETE ordered History [...] Improved. Pt did go to urology at [facility] or [place] [facility]. 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 She denies chest pain, shortness of [...] process Records are being re quested from [facility]. A prescription for Ibuprofen 800mg 1 [...]
[2024-07-13] MEDS: SODIUM CHLORIDE 0.9% IV 1,000 ML 999 ML IV CONT (22:12)
[2024-07-13 22:16] VITALS: BP 168/74; PULSE 63; RESP 14; TEMP 36.7; O2SAT 99
[2024-07-13 22:17] VITALS: O2SAT 99
[2024-07-13 22:54] LABS: Influenza A QL RT-PCR Negative (Negative); Influenza B QL RT-PCR Negative (Negative); RSV RNA, RT-PCR Negative (Negative); SARS-CoV-2 RNA PCR Negative (Negative)
[2024-07-13 23:02] VITALS: BP 150/85; PULSE 63; RESP 12; TEMP 36.7; O2SAT 99
[2024-07-13 23:49] VITALS: BP 149/76; PULSE 62; RESP 17; TEMP 37.1; O2SAT 99
[2024-07-14] VITALS (23 sets, daily range): BP systolic 135–176; BP diastolic 66–95; PULSE 58–88; RESP 12–18; TEMP 36.4–36.8; O2SAT 93–100
--- NOTE | 2024-07-14 | EST_ITS ---
Patient Info Name: Sanjana Stein Age: 69 years : 1955 Gender: Female Ht: 64 in Wt: 188 lbs BSA: 1.99 m2 HR: 69 bpm BP: 190 / 89 mmHg Exam Date: 07/14/2024 11:58 AM Exam Location: Echo Lab Patient Status: Inpatient Admit Date: 07/14/2024 Staff Ordering Physician: Selena Olivares MD Attending Provider: Selena Olivares MD Exercise Technologist: Argelia Singh RDCS Exercise Physician: Xiomy Tony MD Exam Type: CA stress britton w NM Study Info A regadenoson stress test was performed. Summary 1. No abnormal ST/T wave changes diagnostic of ischemia with Lexiscan. 2. Please correlate with nuclear medicine images, reported separately. 3. Stress test supervised and interpreted by Xiomy Tony MD. Protocol: Lexiscan Stress ECG Details Stage: REST Duration (min): 2 min : 22 sec HR (bpm): 69 SBP (mmHg): 190 DBP (mmHg): 89 Stage: REST Duration (min): 17 min : 20 sec HR (bpm): 65 SBP (mmHg): 190 DBP (mmHg): 89 Stage: STAGE 1 Duration (min): 0 min : 59 sec HR (bpm): 91 SBP (mmHg): 172 DBP (mmHg): 74 Stage: RECOVERY Duration (min): 1 min : 0 sec HR (bpm): 89 SBP (mmHg): 172 DBP (mmHg): 74 Stage: RECOVERY Duration (min): 2 min : 0 sec HR (bpm): 87 SBP (mmHg): 172 DBP (mmHg): 74 Stage: RECOVERY Duration (min): 3 min : 0 sec HR (bpm): 77 SBP (mmHg): 141 DBP (mmHg): 72 Stage: RECOVERY Duration (min): 3 min : 10 sec HR (bpm): 74 SBP (mmHg): 141 DBP (mmHg): 72 Rest HR: 65 bpm Peak HR: 102 bpm Rest Sys BP: 190 mmHg Peak Sys BP: 172 mmHg Max Pred HR: 150 bpm % Max Pred HR: 68 % Target HR: 128 bpm Max RPP: 17,544 bpm*mmHg Total Time: 1 min : 0 sec Rest Guzmán BP: 89 mmHg Peak Guzmán BP: 74 mmHg Total Dose: 0.4 mg Resting ECG Sinus rhythm. Nonspecific T wave abnormality. Stress ECG Sinus tachycardia. No abnormal ST/T wave changes diagnostic of ischemia with Lexiscan. Arrhythmias None. Report Signatures
[2024-07-14] MEDS: NITROGLYCERIN SL 0.4 MG TABLET SUBLINGUAL (00:02)
[2024-07-14] MEDS: CEPHALEXIN 500 MG CAPSULE PO ×2 (00:02→13:21)
[2024-07-14 00:59] LABS: NT Pro B Type Natriuretic Pept 21 pg/mL (19.9-100)
[2024-07-14] MEDS: BELLADONNA ALK/PHENOB ELIX 10 ML, MAG HYDROX/ALUMINUM HYD/SIMETH 30 ML, LIDOCAINE 2% VI... PO (01:14)
[2024-07-14 02:32] LABS: Cholesterol 186 mg/dL (0-200); HDL Direct 94 mg/dL; Triglycerides 97 mg/dL (<150)
[2024-07-14 02:45] LABS: LDL Cholesterol Direct 60 mg/dL
[2024-07-14 02:49] LABS: Hemoglobin A1C 6.4 % (<5.7)
[2024-07-14] MEDS: [UNRECOGNIZED DRUG - OTHER] XX (05:49)
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
--- NOTE | 2024-07-14 10:27 | PC.NURSE ---
Pharmacy called for missing medications.
--- NOTE | 2024-07-14 12:33 | P.CONCA_ITS ---
Assessment and Plan Assessment and plan (1) Chest pain: Code(s): R07.9 - Chest pain, unspecified Status: Acute Plan 1. Atypical chest pain 2. Hypertension 3. Hyperlipidemia 4. Type 2 diabetes mellitus 5. Hypothyroidism PLAN: -Agree with stress testing. Lexiscan ordered by primary team. If stress test is negative, then patient can be discharged home; will arrange close outpatient follow up in my office. Recommendations and plan discussed with Hospitalist. History of Present Illness History of Present Illness Consult date/time: 07/14/24 12:33 Requesting physician: Libby Chacon PA-C Consult reason: chest pain Reason For Visit: Atypical chest pain Narrative: We are consulted for chest pain. Sanjana is a 69 year old female with hypertension, hyperlipidemia, type 2 diabetes mellitus who presented with chest pain and back pain. Patient reports that her pain is in the right substernal area. Not reproducible. Feels like a pressure type pain. No radiation of pain. No family history of heart disease. No prior known cardiac history. Workup here shows troponins negative x 2. CXR negative for acute findings. EKG with sinus rhythm, LVH, nonspecific STTW abnormality. She is currently chest pain free upon my evaluation. Review of Systems 2 Review of Systems: All systems reviewed & are unremarkable except as noted in HPI and below (HPI) [facility] Past Medical History Medical History Hyperlipidemia Essential hypertension Thyroid disorder Diabetes type 2, controlled Surgical History Surgical History History of removal of both ovaries Family History Family History Mother Colon cancer Sibling Colon cancer Other Hypertension Social History Social History Smoking status: Never smoker Alcohol intake: current Alcohol use details: occasional Substance use: never Substance use type: does not use Lack of Transportation: No Lack of Food: Never True Current Housing: I Have Housing Concerned About Future Housing: No Difficulty Paying Gas/Electric Bills: Decline to Answer Difficulty Paying for Meds: No Currently Unemployed: No Education: Master's Degree or Higher Difficulty w/ Childcare or Family Care: No Living arrangements: with family Occupation/Education: retired Spiritual care concerns: No Agree to blood products: Yes Meds Home Medications and Allergies Home Medications ?Medication ?Instructions ?Recorded ?Confirmed ?Type aspirin 81 mg tablet,delayed 81 mg PO DAILY 07/09/23 07/14/24 History release (Adult Aspirin Regimen) ezetimibe 10 mg tablet 10 mg PO DAILY #7 tabs 09/30/23 07/14/24 Rx atorvastatin 80 mg tablet 80 mg PO QHS #90 tabs 12/20/23 07/14/24 Rx levothyroxine 75 mcg tablet 75 mcg PO DAILY #90 tabs 01/23/24 07/14/24 Rx metformin 500 mg tablet 500 mg PO DAILY #180 tabs 02/19/24 07/14/24 Rx omeprazole magnesium 10 mg oral 10 mg PO DAILY #30 ea 04/15/24 06/30/24 Rx suspension,delayed release (Prilosec) ibuprofen 600 mg tablet 600 mg PO TID PRN fever or pain 04/17/24 06/30/24 Rx #30 tabs losartan 50 mg tablet 50 mg PO DAILY #90 tabs 04/17/24 07/14/24 Rx semaglutide 1 mg/dose (4 mg/3 mL) 1 mg (0.75 mL) subcut WEEKLY #3 mL 06/17/24 06/30/24 Rx subcutaneous pen injector famotidine 20 mg tablet 20 mg PO QHS laryngopharyngeal 06/30/24 07/14/24 Rx reflux #30 tabs fluticasone 250 mcg-salmeterol 50 1 inh inhalation BID asthmatic 06/30/24 06/30/24 Rx mcg/dose blistr powdr for bronchitis #60 ea inhalation (Advair Diskus) Allergies Allergy/AdvReac Type Severity Reaction Status Date / Time No Known Allergies Allergy Verified 07/14/24 08:05 Vital Signs Vital Signs - 24 hr 07/13/24 16:06 07/13/24 18:40 07/13/24 22:16 Temperature 37.0 C Pulse Rate 77 86 63 Respiratory Rate 18 20 Blood Pressure 151/86 H 196/92 H Pulse Oximetry 98 100 Oxygen Delivery Room Air 07/13/24 22:16 07/13/24 22:16 07/13/24 22:17 Temperature 36.7 C Pulse Rate 63 Respiratory Rate 14 Blood Pressure 168/74 H Pulse Oximetry 99 99 99 Oxygen Delivery Room Air Room Air 07/13/24 23:02 07/13/24 23:49 07/14/24 00:03 Temperature 36.7 C 37.1 C Pulse Rate 63 62 63 Respiratory Rate 12 17 17 Blood Pressure 150/85 H 149/76 H 155/95 H Pulse Oximetry 99 99 99 Oxygen Delivery 07/14/24 01:00 07/14/24 03:00 07/14/24 04:58 Temperature 36.4 C 36.6 C 36.7 C Pulse Rate 70 69 61 Respiratory Rate 16 17 12 Blood Pressure 144/81 H 146/75 H 149/72 H Pulse Oximetry 97 95 98 Oxygen Delivery 07/14/24 07:01 07/14/24 07:07 07/14/24 07:15 Temperature 36.4 C Pulse Rate 65 66 67 Respiratory Rate 12 17 14 Blood Pressure 176/86 H 176/66 H Pulse Oximetry 97 100 98 Oxygen Delivery 07/14/24 08:05 07/14/24 08:06 07/14/24 08:15 Temperature Pulse Rate 72 67 88 Respiratory Rate 13 13 15 Blood Pressure 135/82 Pulse Oximetry 94 96 93 Oxygen Delivery 07/14/24 08:30 07/14/24 08:45 07/14/24 09:00 Temperature Pulse Rate 61 59 L 59 L Respiratory Rate 14 12 14 Blood Pressure Pulse Oximetry 96 93 96 Oxygen Delivery 07/14/24 09:01 07/14/24 09:15 07/14/24 09:30 Temperature Pulse Rate 59 L 59 L 58 L Respiratory Rate 14 14 12 Blood Pressure 158/76 H Pulse Oximetry 94 94 96 Oxygen Delivery 07/14/24 10:00 07/14/24 10:01 07/14/24 10:15 Temperature Pulse Rate 69 66 61 Respiratory Rate 15 16 16 Blood Pressure 145/81 H Pulse Oximetry 98 93 99 Oxygen Delivery 07/14/24 10:30 07/14/24 10:45 Temperature Pulse Rate 64 64 Respiratory Rate 18 16 Blood Pressure Pulse Oximetry 97 99 Oxygen Delivery Exam 2 Const: General: comfortable and no acute distress HENMT: Mouth: Yes moist mucous membranes Eyes: General: appearance normal, both eyes and all related structures S clera: sclerae normal Resp: Effort & Inspection: normal respiratory effort Cardio: Rate: regular rate Rhythm: regular rhythm Heart sounds: no murmurs Skin: General skin exam: normal color Neuro: Speech: normal speech Psych: Mental Status: mental status grossly normal Affect: normal affect Results Labs and Meds 07/13/24 16:18 07/13/24 16:18 Lab results: Cardiac Enzymes 07/13/24 07/13/24 Range/Units 16:18 18:47 AST 24 (14-36) U/L Troponin I < 0.012 < 0.012 (0.000-0.034) ng/mL Coagulation 07/13/24 Range/Units 16:18 PT 12.7 (11.1-14.7) Seconds APTT 29.0 (22.3-36.8) Seconds Lipids 07/13/24 Range/Units 16:18 Triglycerides 97 (<150) mg/dL Cholesterol 186 (0-200) mg/dL CBC 07/13/24 Range/Units 16:18 WBC 5.0 (4.5-10.0) K/mm3 RBC 4.22 (4.2-5.4) M/mm3 Hgb 12.3 (12.0-15.0) g/dL Hct 38.3 (37.0-47.0) % Plt Count 324 (150-375) k/mm3 Lymph # (Auto) 1.95 (0.9-3.2) K/mm3 Hill # (Auto) 0.3 (0.1-0.6) K/mm3 Eos # (Auto) 0.2 (0-0.3) K/mm3 Baso # (Auto) 0.0 (0.0-0.1) K/mm3 Comprehensive Metabolic Panel 07/13/24 Range/Units 16:18 Sodium 141 (137-145) mmol/L Potassium 3.6 (3.4-5.0) mmol/L Chloride 103 (98-107) mmol/L Carbon Dioxide 25 (22-30) mmol/L BUN 14 D (7-17) mg/dL Creatinine 0.64 L (0.7-1.0) mg/dL Glucose 91 (65-110) mg/dL Calcium 9.6 (8.4-10.2) mg/dL AST 24 (14-36) U/L ALT 28 (6-35) U/L Alkaline Phosphatase 135 H (38-126) U/L Total Protein 9.0 H (6.3-8.2) g/dL Albumin 4.6 (3.5-5.1) g/dL Intake and Output 07/13/24 07/14/24 07/14/24 23:59 07:59 15:59 Intake Total 1000 Balance 1000 Intake: IV 1000 Sodium Chloride 0.9% IV 1,000 1000 ml @ 999 mls/hr IV CONT .Q1H1M [facility] Rx#:[id number]
[2024-07-14] MEDS: LEVOTHYROXINE SODIUM 75 MCG TABLET PO (13:21)
[2024-07-14] MEDS: ASPIRIN 81 MG ENTERIC TABLET PO (13:21)
[2024-07-14] MEDS: EZETIMIBE 10 MG TABLET PO (13:21)
[2024-07-14] MEDS: LOSARTAN POTASSIUM 50 MG TABLET PO (13:21)
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
== END 2024-07-14 17:10 | disposition home or self-care (01) ==
LOC: ANHED 07-14 03:46 → ANH3MEDSUR 07-14 16:21
PROVIDERS: Emergency Medicine; Admitting Provider General Practice; Emergency Provider Registered Nurse; PCP Internal Medicine; Visit Provider General Practice
DX: R07.89 Other chest pain (principal); E11.9 Type 2 diabetes mellitus without complications; I10 Essential (primary) hypertension; E78.2 Mixed hyperlipidemia; E03.9 Hypothyroidism, unspecified; N39.0 Urinary tract infection, site not specified; Z87.828 Personal history of other (healed) physical injury and trauma; Z90.722 Acquired absence of ovaries, bilateral; Z20.822 Contact with and (suspected) exposure to COVID-19; Z79.51 Long term (current) use of inhaled steroids; Z79.82 Long term (current) use of aspirin; Z79.84 Long term (current) use of oral hypoglycemic drugs; Z79.85 Long-term (current) use of injectable non-insulin antidiabetic drugs; Z79.899 Other long term (current) drug therapy
CPT/HCPCS: 36415; 71046; 78452; 80053; 80061; 81001; 83036; 83690; 83880; 84443; 84484; 85025; 85610; 85730; 87086; 87637; 93005; 93017; 96361; 96372; 96374; 96375; 99285; A9270; A9502; G0378; J2785; J7030

== ENCOUNTER 2024-08-19 10:10 | Outpatient (CLI) | payer MEDICARE, SELFPAY ==
--- NOTE | ~2024-08-19 | MR_ITS ---
MRI of the right shoulder Technique: Axial proton-density fat-sat images, coronal proton density fat-sat and T2 fat-sat images, and sagittal T1-weighted and T2 fat-sat images were acquired. Clinical History: Pain Findings: There is moderate AC joint degenerative change, but in particular change of the distal clav icle and acromion. Small subacromial spur. Coracoclavicular, coracoacromial, and coracohumeral ligame nts appear intact. There is tiny low-grade focal interstitial tear at the distal supraspinatus tendon region. There is m oderate supraspinatus and infraspinatus tendinosis. No high-grade partial or full-thickness tear of t hese tendons is seen. Subscapularis tendon is intact. Tendon of the long head of the biceps is intact . There is degenerative signal of the superior labrum without definite tear. There is degenerative atte nuation of the anteroinferior labrum. Inferior glenohumeral ligament is intact. There is mild glenohumeral joint degenerative change with s mall joint effusion. There is minimal fluid within the subacromial/subdeltoid bursa. No muscle atroph y or edema.. Impression: Moderate supraspinatus and infraspinatus tendinosis with focal tiny low-grade interstitial tear of th e distal supraspinatus tendon. No high-grade partial or full-thickness rotator cuff tear seen. Moderate AC joint degenerative change. Mild glenohumeral joint degenerative change. Degenerative attenuation of the anteroinferior labrum. Possible minimal subacromial/subdeltoid bursitis. Reviewed, dictated and finalized at location M. Impression: Moderate supraspinatus and infraspinatus tendinosis with focal tiny low-grade i nterstitial tear of the distal supraspinatus tendon. No high-grade partial or f ull-thickness rotator cuff tear seen. Moderate AC joint degenerative change. Mild glenohumeral joint degenerative calin nge. Degenerative attenuation of the anteroinferior labrum. Possible minimal subacromial/subdeltoid bursitis.
--- OUTSIDE RECORDS SUMMARY | 2024-08-19 11:34 | XMS_ITS | Clinical Summary ---
Author Organization [facility] Address [facility] [place] [address] Care Team Providers Care Care Coordination Manager Name Role Phone Unavailable Primary Care Provider [...]
--- OUTSIDE RECORDS SUMMARY | 2024-08-19 11:34 | XMS_ITS | Clinical Summary ---
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
--- OUTSIDE RECORDS SUMMARY | 2024-08-19 11:35 | XMS_ITS | Clinical Summary ---
Author Organization [address] Address [address] [place] [id number] Care Team Providers Care Apprentice Painter Brush Name Role Phone Moon Choi NP Primary [...] 1 tablet (75 mcg total) by mouth personal lines advisor before breakfast Active ezetimibe (ZETIA) 10 mg tablet Take 1 tablet (10 mg total) by mouth daily Active aspirin 81 mg enteric coated tablet Take 1 tablet (81 mg total) by mouth daily Active semaglutide (Ozempic) 1 mg/dose (2 mg/1.5 mL) pen injector injection Inject 1 mg under the skin Active Active Problems No known active problems Encounters Date Type Department Care Team Description 07/23/2024 Orders Only [facility] Cardiology [address] [place] [address] Xiomy Tony MD from Last 3 Months Social History Tobacco Use Types Packs/Day Years Used Date Smoking Tobacco: Never Tobacco Cessation:Counseling Given: Not Answered Comments Unknown Sex and Gender Information Value Date Recorded Sex Assigned at Not on file 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 Gender Identity Not on file Sexual Orientation Not on file Obstetrics History Last Filed Vital Signs Vital Sign Reading Time Taken Comments Blood Pressure 142/77 04/14/2015 10:47 AM OIL OPERATOR Pulse 66 04/14/2015 10:47 AM OIL OPERATOR Temperature 35.9 C (96.7 F) 02/13/2024 12:38 PM CDT Respiratory Rate - - Oxygen Saturation 94% 04/14/2015 10:47 AM OIL OPERATOR Inhaled Oxygen Concentration - - Weight 86.8 kg (191 lb 6.4 oz) 02/13/2024 12:38 PM CDT Height 162.6 cm (5' 4 ) 04/14/2015 10:47 AM OIL OPERATOR Body Mass Index 32.85 04/14/2015 10:47 AM OIL OPERATOR Plan of Treatment Health Maintenance Due Date Last Done Comments Breast Cancer Screening-Mammogram 1954 Colon Cancer Screening-Colonoscopy 1954 Depression Screening 1954 Fall Risk Assessment 1954 Hepatitis C Screening 1954 Osteoporosis Screening-Bone Density Scan 1954 DTaP/Tdap/Td Vaccine (1 - Tdap) 1965 Hepatitis B Screening 1972 Well Visit 65+ 2019 Covid-19 Vaccine (7 2023-2 5 season) 2024 04/13/2023, 04/16/2022, 11/08/2021, Additional history exists Influenza Vaccine (#1) 2024 04/13/2023, 2022 Pneumococcal vaccine 65+ Completed 03/18/2023 Zoster Vaccine Completed 08/13/2023, 01/03/2023 Procedures Procedure Name Priority Date/Time Associated Diagnosis Comments CARDIOLOGY DOCUMENT SCAN Routine 07/14/2024 4:06 PM OIL OPERATOR from Last 3 Months Results * Cardiology Document Scan (07/14/2024 4:06 PM OIL OPERATOR) Anatomical Region Laterality Modality Other us Ripa Afshin Tony MD CV CARDIAC SERVICES PRO CEDURES Final Result from Last 3 Months Insurance MEDICARE [employer] Care Teams Apprentice Painter Brush Relationship Specialty Start Date End Date Moon Choi NP PCP - General Nurse Practitioner 08/05/23
--- OUTSIDE RECORDS SUMMARY | 2024-08-19 11:35 | XMS_ITS | Continuity of Care Document ---
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 [facility], [place], [place], [address] . tel: [phone] Referring Provider: Momo Blackburn, [address] [facility], [place], [address] . tel:[phone] [facility], [address], [place], [place], [address] , [place] tel: [phone] [facility] Well woman exam with routine gynecological examScreening Dillon Brisa. [address] [facility], [place], [place], [address] . tel: [phone] Referring Provider: Momo Blackburn, [address] [place] [address], [place], [address] . tel:[phone] [facility], [address], [place], [place], [address] , [place] tel: [phone] [facility] Sprain of ligaments of cervical spineObesityLum bago Dillon Brisa. [address] [facility], [place], [place], [address] . tel: [phone] Referring Provider: Momo Blackburn, [address] [place] [address], [place], [address] . tel:[phone] [facility], [address], [place], [place], [address] , [place] tel: [phone] [facility] Hypertension, BenignMixed HyperlipidemiaE picondylitis, lateralLateral cutaneous femoral nerve of thigh compression or syndrome 4 Dillon Barr. [address] [facility], [place], [place], [address] . tel: [phone] Referring Provider: Momo Blackburn, [address] [facility], [place], [address] . tel:[phone] [facility], [address], [place], [place], [address] , [place] tel: [phone] [facility] Mammogram, Screening 4 Dillon Barr. [address] [place], [place], [address] . tel: [phone] [facility], [address], [place], [place], [address] , [place] tel: [phone] [facility] 4 Dillon Barr. [address] [facility], [place], [place], [address] . tel: [phone] Referring Provider: Momo Blackburn, [address] [facility], [place], [address] . tel:[phone] [facility], [address], [place], [place], [address] , [place] tel: [phone] [facility] Hypertension, BenignMixed HyperlipidemiaL umbago 3 Dillon Barr. [address] [place], [place], [address] . tel: [phone] Referring Provider: Momo Blackburn, [facility] [facility], [place], [address] . tel:[phone] [facility], [address], [place], [place], [address] , [place] tel: [phone] [facility] 3 Dillon Barr. [address] [facility], [place], [place], [address] . tel: [phone] Referring Provider: Momo Blackburn, [address] [facility], [place], [address] . tel:[phone] [facility], [address], [place], [place], [address] , [place] tel: [phone] [facility] Spasm of muscleLumbago 0 3 Dillon Barr. [address] [facility], [place], [place], [address] . tel: [phone] Referring Provider: Momo Blackburn, [facility] [facility], [place], [address] . tel:[phone] [facility], [address], [place], [place], [address] , [place] tel: [phone] [facility] Benign essential hypertensionMix ed hyperlipidemiaA bnormal blood test 3 Dillon Ledezma. [address] [facility], [place], [place], [address] . tel: [phone] Referring Provider: Momo Blackburn, [address] [facility], [place], [address] . tel:[phone] [facility], [address], [place], [place], [address] , [place] tel: [phone] [facility] Cervical paraspinal muscle spasm 3 Dillon Barr. [address] [facility], [place], [place], [address] . tel: [phone] Referring Provider: Momo Blackburn, [address] [facility], [place], [address] . tel:[phone] [facility], [address], [place], [address] , [place] tel: [phone] [facility] Benign essential hypertensionMix ed hyperlipidemiaC hronic major depressive disorderSkin punctureNEED FOR PROPHYLACTIC VACCINATION WITH COMBINED DIPHTHERIA-TETA NUS-PERTUSSIS (DTP) (DTAP) VACCINE 3 Dillon Ledezma. [address] [place], [place], [address] . tel: [phone] Referring Provider: Momo Blackburn, [address] [facility], [place], [address] . tel:[phone] [facility], [address], [place], [place], [address] , [place] tel: [phone] [facility] Benign essential hypertensionGen eralized anxiety disorderDepress ionLumbago 3 Dillon Barr. [address] [facility], [place], [place], [address] . tel: [phone] Referring Provider: Momo Blackburn, [address] [facility], [place], [address] . tel:[phone] [facility], [address], [place], [place], [address] , [place] tel: [phone] [facility] Anxiety attackLumbago 3 Dillon Barr. [address] [place], [place], [address] . tel: [phone] Referring Provider: Momo Blackburn, [address] [facility], [place], [address] . tel:[phone] [facility], [address], [place], [place], [address] , [place] tel: [phone] [facility] Anxiety attack Apr- 7-201 3 Dillon Barr. [address] [facility], [place], [place], [address] . tel: [phone] Referring Provider: Momo Blackburn, [address] [facility], [place], [address] . tel:[phone] [facility], [address], [place], [place], [address] , [place] tel: [phone] [facility] Benign essential hypertensionMix ed hyperlipidemiaB enign essential hypertensionMix ed hyperlipidemia 1201 2 Dillon Barr. [address] [facility], [place], [place], [address] . tel: [phone] Referring Provider: Momo Blackburn, [address] [facility], [place], [address] . tel:[phone] [facility], [address], [place], [place], [address] , [place] tel: [phone] [facility] Strain of knee and leg, right Feb-2 0-201 2 Dillon Ledezma. [address] [place], [place], [address] . tel: [phone] Referring Provider: Momo Blackburn, [address] [facility], [place], [address] . tel:[phone] [facility], [address], [place], [place], [address] , [place] tel: [phone] [facility] Benign essential hypertensionMix ed hyperlipidemiaS prain of medial collateral ligament of knee Feb-0 7-201 2 Dillon Ledezma. [address] [place], [place], [address] . tel: [phone] Referring Provider: Momo Blackburn, [address] [facility], [place], [address] . tel:[phone] Family History Family Member Type Diagnosis Age [...] Record Payers Payer name Insurance type Covered republican ID Authoriza tion(s) [facility] PPO MB [id number] [facility] [employer] PPO MB [id number] [employer] CI [id number] [employer] CI [id number] [employer] OPEN ACCESS CI [id number] Social History Type Description Quantity Date Captured [...] counseling completed Referral Ordered: Arleen -Sleep Studies [facility] (related to Snoring) ordered Referral Referred To: Arleen [address] [place], [phone] Ordered: Referrals: Sleep Studies. Arleen. Location: [facility]. Evaluation/diagnostic/treatment - Level 3 ordered Referral Ordered: NELLY Prado -Urology [facility] (related to Polyuria) ordered Referral Referred To: NELLY Prado [address] [place] [address], [place], [phone] Ordered: Referrals: Urology. NELLY Prado. Location: [facility]. Evaluation/diagnostic/treatment - Level 3 ordered Referral Referred To: [address], [phone] Ordered: X-RAY EXAM OF SHOULDER, COMPLETE Right ordered Referral Referred To: [address], [phone] Ordered: X-RAY EXAM OF HUMERUS, MIN 2 VIEWS Right ordered Referral Referred To: Moise Wall MD [address] [place], [phone] Ordered: Referrals: Ophthalmology. Moise Wall MD. Evaluation/diagnostic/treatment - Level 3 Appointment date/timeframe: 03/12/2022 ordered Referral Referred To: Maryam Rios DPM [address] [place], [phone] Ordered: Referrals: Podiatry. Maryam Rios DPM. Evaluation/diagnostic/treatment - Level 3 Appointment date/timeframe: 01/29/2022 ordered Referral Ordered: Alexus Chappell -[employer] (related to Type 2 diabetes mellitus without complication, without long-term current use of insulin) ordered Referral Referred To: Alexus Chappell Ordered: Referrals: [employer]. Alexus Chappell. Location: [facility] [address] [facility] [address] [place] [address]. Evaluation/diagnostic/treatment - Level 3 Appointment date/timeframe: 11/08/2021 ordered Referral Referred To: 2022 [facility] [address] [place], [phone] Ordered: Bone density study of axial skeleton ordered Referral Referred To: 2022 [address]
[address] [place], [phone] Ordered: COMPUTED TOMOGRAPHY, BONE MINERAL DENSITY STUDY, 1 OR MORE SITES AXIAL SKELETON( ordered Referral Referred To: 2022 [facility] [address] [place], [address] [phone] Ordered: X-RAY LUMBAR SPINE, COMPLETE ordered History [...] Pt did go to urology at [facility] or [place]. 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 She denies chest pain, shortness of [...] process Records are being re quested from [facility]. A prescription for Ibuprofen 800mg 1 tablet [...]
--- OUTSIDE RECORDS SUMMARY | 2024-08-19 11:35 | XMS_ITS | Data Portability ---
Author Organization [facility] LUISLatasha [facility] Address [address] [place] [address] Assessment No assessment recorded. Plan of Treatment Reminders Order Date Submit Date Provider Last Modified By Organization Details Last Modified Time Details Appointments None recorde dRobert Lab vaginal pathoge ns panel, ALEXANDRA+pro be, vaginal fluid 2023 024 [facility], [address] [place] [address], [address], 4 07:16:24 chlamyd ia trachom atis + neisser ia gonorrh oeae + trichom onas vaginal is DNA panel, ALEXANDRA+pro be, unspeci fied specime n 2023 024 [facility], [address] [place] [address] 2, [place], [address], 4 07:13:38 chlamyd ia trachom atis + neisser ia gonorrh oeae + trichom onas vaginal is DNA panel, ALEXANDRA+pro be, unspeci fied specime n 2023 024 [facility], [address] [place] [address] 2, [place], [address], 4 07:13:09 HIV 1 + 2, meaning ful use set 2023 024 [facility], [address] [place] [address] 2, [place], [address], 4 07:13:11 RPR (rapid plasma reagin) , serum 2023 024 [facility], [address] [facility], [facility] 2, [place], [address], 4 07:13:10 Hepatit is C IgG Ab, qual, serum 2023 024 [facility], [address] [place] [address], [facility] 2, [place], [address], 4 07:13:07 HBsAg (hepati tis B surface Ag), EIA, serum 2023 024 [facility], [address] [place] [address], [facility] 2, [place], [address], 4 07:13:09 hsv (1+2) igg, serum 2023 024 [facility], [address] [facility], [facility] 2, [place], [address], 4 07:13:08 Referral None recorde d. Procedures None recorde d. Surgeries None recorde d. Imaging None recorde d. Medication Orders metroni dazole 500 mg tablet 2023 024 [facility] [address], [address] [place], [address], 4 11:03:02 flucona zole 150 mg tablet 2023 024 [facility] [address], [address] [place], [address], 4 11:02:58 Patient TargetsNo targets recorded. Patient Instructions Encounter Date Encounter Id Patient Instructions Last Modified By Organization Details Last Modified Time 06/28/2023 [id number] A healthy lifestyle: care instructions [facility] Not available 06/28/2023 11:42:04 08/07/2023 [id number] learning about mood disorders [facility] Not available 08/07/2023 14:29:16 A healthy lifestyle: care instructions [email or web address] Not available 08/07/2023 14:29:16 08/27/2023 [id number] A healthy lifestyle: care instructions [email or web address] Not available 08/27/2023 12:43:00 Reason for Referral None Reported. Results Created Date Observation Date Name Description Value Unit Range Abnormal Flag Note LastModifiedBy Organization Detail LastModifiedTime 06/28/19 24 06/29/2023 HCV ANTIB MAU RFX TO QUANT PCR HCV Ab Non Reacti ve nonrea ctive Not Available [facility] ([facility]) [address] [facility], [place], [address], 07/02/2023 07:13:07 06/28/19 24 06/29/2023 HSV 1 [...] . Not Available [facility] ([facility]) [address] [facility], [place], [address], 07/02/2023 07:13:08 06/28/19 24 06/29/2023 HSV 1 AND 2 AB, IGG hsv 2 IgG, type spec 15.10 index 0.00-0 .90 above high normal Negat karin <0.91 Equiv ocal 0.91 - 1.09 Posit karin >1.09 HSV-2 Antib mau Inter preta tion: [...] . Not Available [facility] ([facility]) [address] [place], [address], 07/02/2023 07:13:08 06/28/19 24 07/02/2023 CT, NG, TRICH VAG BY ALEXANDRA chlamydia by ALEXANDRA Negati ve negati ve Not Available [facility] ([facility]) [address] [place], [address], 07/02/2023 07:13:09 06/28/1907/02/2023 CT, NG, TRICH VAG BY ALEXANDRA gonococcus by ALEXANDRA Negati ve negati ve Not Available [facility] ([facility]) [address] [place], [address], 07/02/2023 07:13:09 06/28/19 24 07/02/2023 CT, NG, TRICH VAG BY ALEXANDRA trich vag by ALEXANDRA Positi ve negati ve abnormal Not Available [facility] ([facility]) [address] [place], [address], 07/02/2023 07:13:09 06/28/19 24 06/29/2023 HBSAG SCREE N HBsAg screen Negati ve negati ve Not Available [facility] ([facility]) [address] [place], [address], 07/02/2023 07:13:09 06/28/19 24 06/29/2023 RPR, RFX QN RPR/C ONFIR M TP RPR Non Reacti ve nonrea ctive Not Available [facility] ([facility]) [address] [place], [address], 07/02/2023 07:13:10 06/28/19 24 06/29/2023 HIV AB/P2 4 AG WITH REFLE X HIV Ab/P24 Ag screen Non Reacti ve nonrea ctive HIV Negat karin HIV-1 /HIV- 2 antib odies and HIV-1 p24 antig en were NOT detec kenzie. There is no labor atory evide nce of HIV infec tion. Not Available [facility] ([facility]) [address] [facility], [place], [address], 07/02/2023 07:13:11 06/28/19 24 06/29/2023 INTER PRETA TION: interpretati on: Commen t Not infec kenzie with HCV unles s early or acute infec tion is suspe cted (whic h may be delay ed in an immun ocomp romis ed indiv idual ), or other evide nce exist s to indic ate HCV infec tion. Not Available [facility] ([facility]) [address] [place], [address], 07/02/2023 07:13:07 08/07/19 24 08/09/2023 CT, NG, TRICH VAG BY ALEXANDRA chlamydia by ALEXANDRA Negati ve negati ve Not Available [facility] ([facility]) [address] [place], [address], 08/10/2023 07:13:38 08/07/19 24 08/09/2023 CT, NG, TRICH VAG BY ALEXANDRA gonococcus by ALEXANDRA Negati ve negati ve Not Available [facility] ([facility]) [address] [place], [address], 08/10/2023 07:13:38 08/07/1908/09/2023 CT, NG, TRICH VAG BY ALEXANDRA trich vag by ALEXANDRA Negati ve negati ve Not Available [facility] ([facility]) [address] [place], [address], 08/10/2023 07:13:38 08/27/19 24 08/29/2023 NUA B VAGIN ITIS PLUS (VG+) atopobium vaginae High - 2 score abnormal Not Available [facility] ([facility]) [address] [place], [address], 08/29/2023 07:16:24 08/27/1908/29/2023 NUA B VAGIN ITIS PLUS (VG+) bvab 2 Low - 0 score Not Available [facility] ([facility]) [address] [place], [address], 08/29/2023 07:16:24 08/27/19 24 08/29/2023 NUA B [...] tion. Not Available [facility] ([facility]) [address] [place], [address], 08/29/2023 07:16:24 08/27/19 24 08/29/2023 NUSWA B VAGIN ITIS PLUS (VG+) raine albicans, ALEXANDRA Negati ve negati ve Not Available [facility] ([facility]) [address] [place], [address], 08/29/2023 07:16:24 08/27/19 24 08/29/2023 NUA B VAGIN ITIS PLUS (VG+) raine glabrata, ALEXANDRA Negati ve negati ve Not Available [facility] ([facility]) [address] [place], [address], 08/29/2023 07:16:24 08/27/19 24 08/29/2023 NUA B VAGIN ITIS PLUS (VG+) trich vag by ALEXANDRA Negati ve negati ve Not Available [facility] ([facility]) [address] [place], [address], 08/29/2023 07:16:24 08/27/19 24 08/29/2023 NUA B VAGIN ITIS PLUS (VG+) chlamydia trachomatis, ALEXANDRA Negati ve negati ve Not Available [facility] ([facility]) [address] [place], [address], 08/29/2023 07:16:24 08/27/19 24 08/29/2023 NUA B VAGIN ITIS PLUS (VG+) neisseria gonorrhoeae, ALEXANDRA Negati ve negati ve Not Available [facility] ([facility]) [address] [place], [address], 08/29/2023 07:16:24 Result Notes None recorded. Problems [...] Address Organization Details Last Updated DateTime 4 72817.4 6 g 79 /min 18 /min 35.9 kg/m2 160.02 cm 120 mm[Hg] 83 mm[Hg] Nelda Gore [facility] 4 10:23:36 Date Recorded Body height Body mass index (BMI) Body weight Heart rate Systolic blood pressure Diastolic blood pressure Provider Name and Address Organization Details Last Updated DateTime 4 160.02 cm 35.9 kg/m2 16118.8 5 g 67 /min 147 mm[Hg] 83 mm[Hg] Yara Orozco MA [facility] 4 14:32:09 Date Recorded Body height Body mass index (BMI) Body weight Heart rate Respiratory rate Systolic blood pressure Diastolic blood pressure Provider Name and Address Organization Details Last Updated DateTime 4 160.02 cm 35.7 kg/m2 37251.8 7 g 71 /min 16 /min 126 mm[Hg] 83 mm[Hg] Nelda Gore [facility] 4 14:23:44 Date Recorded Body height Body mass index (BMI) Body weight Heart rate Respiratory rate Systolic blood pressure Diastolic blood pressure Provider Name and Address Organization Details Last Updated DateTime 4 160.02 cm 36.1 kg/m2 60096.8 4 g 75 /min 16 /min 123 mm[Hg] 76 mm[Hg] Nelda Gore [facility] 4 12:28:43 Social History Question Answer Notes LastModified by Organizat ion Details LastModified Time Tobacco Smoking Status Never Smoker Nelda Gore null, [facility] 06/28/2023 10:28:30 In The 14 Days Before Symptom Onset, Have You Had Close Contact With A Laboratory-confirm ed COVID-19 While That Case Was Ill? No [email or web address] Information n ot available 06/28/2023 In The 14 Days Before Symptom Onset, Have You Had Close Contact With A Person Who Is Under Investigation For COVID-19 While That Person Was Ill? No [email or web address] Information not available 06/28/2023 Have You Been To An Area Known To Be High Risk For COVID-19? No [email or web address] Information not available 06/28/2023 What Was The Date Of Your Most Recent Tobacco Screening? 08/27/2023 [email or web address] Information not available 08/27/2023 Are You Sexually Active? Yes [email or web address] Information not available 06/28/2023 Do You Have Smoke And Carbon Monoxide Detectors In Your Home? Yes Information not available 06/28/2023 Are You Passively Exposed To Smoke? No [email or web address] Information no t available 06/28/2023 Do You Use Any Illicit Or Recreational Drugs? No [email or web address] Information not available 08/07/2023 Has Tobacco Cessation Counseling Been Provided? Yes [email or web address] Information not available 08/07/2023 Do You Or Have You Ever Used Any Other Forms Of Tobacco Or Nicotine? No [email or web address] Information not available 06/28/2023 Sex: Female Functional [...] SNOMED-CT Code Diagnosis ICD10 Code Diagnosis Note [id number] CELESTINA Castellanos 14 OB [address] [facility] [place] [address] 06/28/2023 10:11:48 07/01/2023 07:28:40 Venereal disease screening 965120096 Z11.3 1. STD testing done per pt request 2. Educated pt on STD prevention , Condom use 3. Pt verbalized understand ing 4. Will follow up pending lab results, as needed or at next annual Obesity 676381791 E66.9 Discussed diet and weight loss. Discussed making healthier food choices and increasing exercise. Discussed going to a sheriff officer. [id number] CELESTINA Castellanos [address] [place] [address] 07/16/2023 14:22:55 07/17/2023 08:55:14 Vaginal discharge 555774009 N89.8 Nuswab done and sent to lab. Counseled on STD prevention and condom use. Counseled on yeast and BV prevention . Will follow up pending lab results. [id number] CELESTINA Castellanos [address] [place] [address] 08/07/2023 14:14:35 08/08/2023 08:20:36 Obesity 928362279 E66.9 Discussed diet and weight loss. Discussed making healthier food choices and increasing exercise. Discussed going to a sheriff officer. Positive s creening for depression on PHQ-9 (Patient Health Questionnaire 9) 9988348642 77529 Z13.31 . Denies thoughts of self harm or harming others. Pt instructed to call 911 if depression worsens or go to ED. History of sexually transmitted disease 611482409 Z86.19 1. STD testing done per pt request 2. Educated pt on STD prevention , Condom use 3. Pt verbalized understand ing 4. Will follow up pending lab results, as needed or at next annual [id number] CELESTINA Castellanos [address] [place] [address] 08/27/2023 12:15:29 08/28/2023 10:16:11 Vaginal discharge 419547304 N89.8 Nuswab done and sent to lab. Counseled on STD prevention and condom use. Counseled on yeast and BV prevention . Will follow up pending lab results. Obesity [id number] E66.9 Discussed diet and weight loss. Discussed making healthier food choices and increasing exercise. Discussed going to a sheriff officer. Health Concerns Section Related Observation LastModified by Organization Detai ls LastModified Time None Recorded Concern Status LastModified by Organization Details LastModified Time None Recorded Advance Directives Directive None Recorded Payers Encounter Date Sequence Insurance Name Policy Number Policy P[place]agua Covered Member ID Pani[place] Member ID Guarantor Name 06/28/2023 1 [facility] (MEDICARE REPLACEMENT/A DVANTAGE - HMO) [id number] Sanjana Emil [id number] Sanjana Emil 07/16/2023 1 [facility] (MEDICARE REPLACEMENT/A DVANTAGE - HMO) [id number] Sanjana Emil [id number] Sanjana Emil 08/07/2023 1 [facility] (MEDICARE REPLACEMENT/A DVANTAGE - HMO) [id number] Sanjana Emil [id number] Sanjana Emil 08/27/2023 1 [facility] (MEDICARE REPLACEMENT/A DVANTAGE - HMO) [id number] Sanjana Emil [id number] Sanjana Emil Notes Date Note Type Note [...] std testing CELESTINA Castellanos Attn: [address] [place], [address], [facility] 06/28/2023 11:59:45 07/16/2023 text/html Annual [...] on meds CELESTINA Castellanos Attn: [address] [place], [address], [facility] 07/16/2023 15:18:31 08/07/2023 text/html Annual GYNReport ed [...] trich 07/02/23 CELESTINA Castellanos Attn: [address] [place], [address], [facility] 08/07/2023 14:34:58 08/27/2023 text/html Annual GYNReport ed [...] trich 07/02/23 CELESTINA Castellanos Attn: [address] [place], [address], [facility] 08/27/2023 12:46:10 OBGyn Episode No OBEpisode recorded.
--- OUTSIDE RECORDS SUMMARY | 2024-08-19 11:35 | XMS_ITS | Referral Summary ---
Author Organization [address] Address [facility] [place] [address] Care Team Providers Care Labor Contract Analyst Name Role Phone Moon Choi NP Primary Care Provider [phone] Encounters Date Type Department Care Team Description 07/23/2024 Orders Only [facility] Cardiology [address] [place] [address] Xiomy Tony MD from Last 3 Months Allergies No known active allergies Medications losartan [...] 1 tablet (75 mcg total) by mouth emergency management specialist before breakfast Active ezetimibe (ZETIA) 10 mg [...] on file Legal Sex Female 8:30 PM BEATER OUT LEVELING 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 Gender Identity Not on file Sexual Orientation Not on file Last Filed Vital Signs Vital Sign Reading Time Taken Comments Blood Pressure 142/77 04/14/2015 10:47 AM BEATER OUT LEVELING MACHINE Pulse 66 04/14/2015 10:47 AM BEATER OUT LEVELING MACHINE Temperature 35.9 C (96.7 F) 02/13/2024 12:38 PM CDT Respiratory Rate - - Oxygen Saturation 94% 04/14/2015 10:47 AM BEATER OUT LEVELING MACHINE Inhaled Oxygen Concentration - - Weight 86.8 kg (191 lb 6.4 oz) 02/13/2024 12:38 PM CDT Height 162.6 cm (5' 4 ) 04/14/2015 10:47 AM BEATER OUT LEVELING MACHINE Body Mass Index 32.85 04/14/2015 10:47 AM BEATER OUT LEVELING MACHINE Plan of Treatment Not on file Procedures Procedure Name Priority Date/Time Associated Diagnosis Comments CARDIOLOGY DOCUMENT SCAN Routine 07/14/2024 4:06 PM BEATER OUT LEVELING MACHINE from Last 3 Months Results * Cardiology Document Scan (07/14/2024 4:06 PM BEATER OUT LEVELING MACHINE) Anatomical Region Laterality Modality Other us Ripa Afshin Tony MD [facility] PRO CEDURES Final Result from Last 3 Months [place] [id number] Care Teams Labor Contract Analyst Relationship Specialty Start Date End Date Moon Choi NP PCP - General Nurse Practitioner 08/05/23
--- OUTSIDE RECORDS SUMMARY | 2024-08-19 11:35 | XMS_ITS | Clinical Summary ---
Author Organization [facility] Address [address] [facility] [place] [address] Care Team Providers Care Early Childhood Lead Teacher Name Role Phone Jayden Burgess MD Primary Care Provider [phone] Source Comments [facility],non-owned Affiliates and Associated Physician Practices is amultiple site organization consisting of ambulatory clinics and hospital sitesin [place], [place], [place] and [place]. This disclosure is being madepursuant to the Care Everywhere program and may not contain all information available regarding this patient. Last updated 18.Zighra [facility] Allergies No known active allergies Medications * [...] to complete this topic MENINGOCOCCAL (Group B) VACC INE SHARED DECISION-MAKING Aged Out No longer eligibl e based on patient's age to complete this topic MENINGOCOCCAL GROUPS A/C/Y/W VACCINE Aged Out No longer eligible b ased on patient's age to complete this topic Care Teams Early Childhood Lead Teacher Relationship Specialty Start Date End Date Jayden Burgess MD [address] [place] [address] PCP - General 08/28/22
== END 2024-08-19 10:11 | disposition home or self-care (01) ==
PROVIDERS: PCP Internal Medicine; Visit Provider Internal Medicine
DX: M75.31 Calcific tendinitis of right shoulder (principal); M75.32 Calcific tendinitis of left shoulder; M67.813 Other specified disorders of tendon, right shoulder; S43.431A Superior glenoid labrum lesion of right shoulder, initial encounter; V89.2XXA Person injured in unspecified motor-vehicle accident, traffic, initial encounter; M19.011 Primary osteoarthritis, right shoulder; Z00.00 Encounter for general adult medical examination without abnormal findings
CPT/HCPCS: 73221

== ENCOUNTER 2024-09-23 08:00 | Outpatient (RCR) | payer MEDICARE, SELFPAY ==
--- NOTE | 2024-08-26 16:02 | OPREHPOC ---
Outpatient Therapy Plan of Care This is a Multidisciplinary Plan of Care that may contain components documented by all disciplines (PT, OT, and ST.) PT Problem 1 PT Problem #1 Knowledge Deficit PT Goal 1 Goal / Goal Update 1. Pt to be IND with issued HEP. Target Visit 8 PT Problem 2 PT Problem #2 Pain PT Goal 1 Goal / Goal Update 1. Pt to report pain no greater than 3/10 in the last week. 2. Pt to report a score of no greater than 30% on the quick dash. 3. pt to report being able to drive any distance without being limited by shoulder pain. Target Visit 8 PT Problem 3 PT Problem #3 Impaired Range of Motion PT Goal 1 Goal / Goal Update 1. Pt to improve active shoulder flexion elvis to 120 deg 2. Pt to improve active shoulder abduction to 120 deg elvis Target Visit 8 PT Problem 4 PT Problem #4 Impaired Strength PT Goal 1 Goal / Goal Update 1. Pt to be able to lift 2lb overhead to demonstrate putting dishes away.
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
--- NOTE | 2024-08-31 14:33 | PCPTNOTE ---
Patient arrived at 2:30 for her appointment scheduled for 2:00pm. Patient was re-scheduled.
--- NOTE | 2024-09-25 10:57 | PCPTNOTE ---
Angelina called to cancel her appointment secondary to being in the hospital yesterday.
--- NOTE | 2024-09-30 14:50 | PTOPDC ---
Assessment and note entered by Jenifer Torres, PT, DPT Evaluation Information Assessment Status Discharge - Pt Not Present Diagnosis R shoulder pain Onset 04/17/25 Subjective Information Pt called last week and cancelled all of her remaining appointments. Called her today to follow up, states therapy was making her pain so much worse that she had to go to the emergency room. States she has no way to keep her pain under control. States her pain is excruciating after therapy. Insisted on being done with therapy. Assessment PT Clinical Summary Completed 4 visits of therapy, will be discharged at this time per her request.
== END 2024-10-01 09:52 | disposition home or self-care (01) ==
LOC: ANHGOSHPT 08:00
PROVIDERS: PCP Internal Medicine; Visit Provider Internal Medicine
DX: M77.8 Other enthesopathies, not elsewhere classified (principal); M75.51 Bursitis of right shoulder
CPT/HCPCS: 97110; 97140; 97161

== ENCOUNTER 2024-09-23 14:00 | Emergency (ER) | payer MEDICARE, SELFPAY ==
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
[2024-09-23 14:01] VITALS: BP 142/70; PULSE 87; RESP 18; TEMP 36.6; O2SAT 99
[2024-09-23 14:10] VITALS: BP 145/82; PULSE 75; RESP 16; TEMP 36.9; O2SAT 97
--- NOTE | 2024-09-23 15:26 | ECG_ITS ---
Test Date: 2024-09-23 15:34:03 Measurements Intervals Clark Rate: 71 P: 38 [place]: 142 QRS: -11 QRSD: 96 T: -4 QT: 389 QTc: 425 Interpretive Statements SINUS RHYTHM VOLTAGE CRITERIA FOR LEFT VENTRICULAR HYPERTROPHY MINIMAL Q WAVES- HIGH LATERAL LEADS NONSPECIFIC T-WAVE ABNORMALITY- ANT/INF LEADS BORDERLINE ECG Compared to ECG 07/13/2024 18:45:37 NO SIGNIFICANT CHANGE Electronically Signed On 09-23-2024 15:38:58 CDT by Ethan Mcdonough D.O.
--- OUTSIDE RECORDS SUMMARY | 2024-09-23 15:55 | XMS_ITS | Referral Summary ---
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 Gender Identity Not on file Sexual Orientation Not on file Last Filed Vital Signs Vital Sign Reading Time Taken Comments Blood Pressure 142/77 04/14/2015 10:47 AM TOWER LOADER OPERATOR Pulse 66 04/14/2015 10:47 AM TOWER LOADER OPERATOR Temperature 35.9 C (96.7 F) 02/13/2024 12:38 PM CDT Respiratory Rate - - Oxygen Saturation 94% 04/14/2015 10:47 AM TOWER LOADER OPERATOR Inhaled Oxygen Concentration - - Weight 86.8 kg (191 lb 6.4 oz) 02/13/2024 12:38 PM CDT Height 162.6 cm (5' 4 ) 04/14/2015 10:47 AM TOWER LOADER OPERATOR Body Mass Index 32.85 04/14/2015 10:47 AM TOWER LOADER OPERATOR Plan of Treatment Not on file Procedures Procedure Name Priority Date/Time Associated Diagnosis Comments CARDIOLOGY DOCUMENT SCAN Routine 07/14/2024 4:06 PM TOWER LOADER OPERATOR from Last 3 Months Results * Cardiology Document Scan (07/14/2024 4:06 PM TOWER LOADER OPERATOR) Anatomical Region Laterality Modality Other us Ripa Afshin Tony MD CV CARDIAC SERVICES PRO CEDURES Final Result from Last 3 Months Insurance [facility] MEDICARE ADVANTAGE Care Teams Pottery Kiln Builder Relationship Specialty Start Date End Date Moon Choi NP PCP - General Nurse Practitioner 08/05/23
--- OUTSIDE RECORDS SUMMARY | 2024-09-23 15:55 | XMS_ITS | Clinical Summary ---
Author Organization [facility] Address [facility] [place] [address] Care Team Providers Care Finger Lift Operator Name Role Phone Unavailable Primary Care [...] 1 - Tdap) 1973 Mammogram Screening 1994 Pneumococcal Vaccine: 50+ Ye ars (1 of 1 - PCV) 2004 Zoster Vaccines (1 of 2) 2004 Dexa Scan (General) 2019 COVID-19 Vaccine (2023-2 5 season) 2024 RSV Immunization or 60+ Years (1 [...]
--- OUTSIDE RECORDS SUMMARY | 2024-09-23 15:55 | XMS_ITS | Clinical Summary ---
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
--- OUTSIDE RECORDS SUMMARY | 2024-09-23 15:55 | XMS_ITS | Clinical Summary ---
Author Organization [facility] [employer] Address [address] [place] [address] Care Team Providers Care Wooden Box Maker Name Role Phone Jayden Burgess MD Primary Care Provider Source Comments [facility] [employer],non-owned Affiliates and Associated Physician Practices is amultiple site organization consisting of ambulatory clinics and hospital sitesin [place], [place], [place] and [place]. This disclosure is being madepursuant to the Care Everywhere program and may not contain all information available regarding this patient. Last updated 18.[facility] [employer] Allergies No known active allergies Medications * Be aware that medications may not be up to date on this document. Alwaysverify current medications with the patient. levothyroxine (Synthroid) 75 MCG tablet Take 1 (one) tablet by mouth once daily 3 Active losartan (Cozaar) 50 MG tablet Take 1 (one) tablet by mouth once daily 3 Active atorvastatin (Lipitor) 80 MG tablet Take 1 (one) tablet by mouth once daily 3 Active metFORMIN (Glucophage) 500 MG tablet 3 Active aspirin EC (Ecotrin) 81 MG tablet Take 1 (one) tablet by mouth once daily Active oxyBUTYnin (Ditropan) 5 MG tabletIndicatio ns:Overactive Bladder Take 1 (one) tablet by mouth at bedtime Reasons: Overactive Bladder 30 tablet 3 3 Active Social History Tobacco Use Types Packs/Day Years Used Date Smoking Tobacco: Never Smokeless Tobacco: Never Tobacco Cessation:Counseling Given: Not Answered Alcohol Use Standard Drinks/Week Comments Yes 0 (1 standard drink = 0.6 oz pur e alcohol) occ Comments Unknown Sex and Gender Information Value Date Recorded Sex Assigned at Not on file Legal Sex Female 10:19 AM CDT Gender Identity Not on file Sexual [...] 2004 SCREENING FOR DIABETES 09/17/2022 COVID-19 VACCINE ( - 2023-2 5 season) 2024 DEPRESSION SCREENING 06/03/2024 MEDICARE AWV CALENDAR YEAR 2024 INFLUENZA VACCINE (Season Ended) 2025 Respiratory Syncytial Virus (RSV) Vaccine Pt: or [...] on patient's age to complete this topic Insurance MANAGED MEDICARE ADV MANAGED MEDICARE ADV Care Teams Wooden Box Maker Relationship Specialty Start Date End Date Jayden Burgess MD [address] [place] [id number] PCP - General 08/28/22
--- OUTSIDE RECORDS SUMMARY | 2024-09-23 15:55 | XMS_ITS | Data Portability ---
Author Organization [facility] Address [address] [place] [address] Assessment No assessment recorded. Plan of Treatment Reminders Order Date Submit Date Provider Last Modified By Organization Details Last Modified Time Details Appointments None recorde dRobert Lab vaginal pathoge ns panel, ALEXANDRA+pro be, vaginal fluid 2023 024 [facility], [address] [place] [address], [address], 4 07:16:24 chlamyd ia trachom atis + neisser ia gonorrh oeae + trichom onas vaginal is DNA panel, ALEXANDRA+pro be, unspeci fied specime n 2023 024 [facility], [address] [address] [address], [place], [address], 4 07:13:38 chlamyd ia trachom atis + neisser ia gonorrh oeae + trichom onas vaginal is DNA panel, ALEXANDRA+pro be, unspeci fied specime n 2023 024 [facility], [address] [place] [address], [place], [address], 4 07:13:09 HIV 1 + 2, meaning ful use set 2023 024 [facility], [address] [place] [address], [place], [address], 4 07:13:11 RPR (rapid plasma reagin) , serum 2023 024 [facility], [address] [facility], [facility] [address], [place], [address], 4 07:13:10 Hepatit is C IgG Ab, qual, serum 2023 024 [facility], [address] [place] [address], [facility] [address], [place], [address], 4 07:13:07 HBsAg (hepati tis B surface Ag), EIA, serum 2023 024 [facility], [address] [place] [address], [facility] [address], [place], [address], 4 07:13:09 hsv (1+2) igg, serum 2023 024 [facility], [address] [facility], [facility] [address], [place], [address], 4 07:13:08 Referral None recorde d. Procedures None recorde d. Surgeries None recorde d. Imaging None recorde d. Medication Orders metroni dazole 500 mg tablet 2023 024 [facility] [address] [place], [address], 4 11:03:02 flucona zole 150 mg tablet 2023 024 [facility] [address] [place], [address], 4 11:02:58 Patient TargetsNo targets recorded. Patient Instructions Encounter Date Encounter Id Patient Instructions Last Modified By Organization Details Last Modified Time 06/28/2023 [id number] A healthy lifestyle: care instructions [facility] Not available 06/28/2023 11:42:04 08/07/2023 [id number] learning about mood disorders [facility] Not available 08/07/2023 14:29:16 A healthy lifestyle: care instructions [email or web address] Not available 08/07/2023 14:29:16 08/27/2023 [id number] A healthy lifestyle: care instructions [email or web address] Not available 08/27/2023 12:43:00 Reason for Referral None Reported. Results Created Date Observation Date Name Description Value Unit Range Abnormal Flag Note LastModifiedBy Organization Detail LastModifiedTime 06/28/19 24 06/29/2023 HCV ANTIB MAU RFX TO QUANT PCR HCV Ab Non Reacti ve nonrea ctive Not Available [facility] ([facility]) [address], [place], [address], 07/02/2023 07:13:07 06/28/19 24 06/29/2023 HSV 1 [...] kenzie to HSV-1 . Not Available [facility] ([facility]) [address], [place], [address], 07/02/2023 07:13:08 06/28/19 24 06/29/2023 HSV 1 [...] a corre lated . Not Available [facility] ([facility]) [address] [place], [address], 07/02/2023 07:13:08 06/28/19 24 07/02/2023 CT, NG, TRICH VAG BY ALEXANDRA chlamydia by ALEXANDRA Negati ve negati ve Not Available [facility] ([facility]) [address] [place], [address], 07/02/2023 07:13:09 06/28/1907/02/2023 CT, NG, TRICH VAG BY ALEXANDRA gonococcus by ALEXANDRA Negati ve negati ve Not Available [facility] ([facility]) [address] [place], [address], 07/02/2023 07:13:09 06/28/19 24 07/02/2023 CT, NG, TRICH VAG BY ALEXANDRA trich vag by ALEXANDRA Positi ve negati ve abnormal Not Available [facility] ([facility]) [address] [place], [address], 07/02/2023 07:13:09 06/28/19 24 06/29/2023 HBSAG SCREE N HBsAg screen Negati ve negati ve Not Available [facility] ([facility]) [address] [place], [address], 07/02/2023 07:13:09 06/28/19 24 06/29/2023 RPR, RFX QN RPR/C ONFIR M TP RPR Non Reacti ve nonrea ctive Not Available [facility] ([facility]) [address] [place], [address], 07/02/2023 07:13:10 06/28/19 24 06/29/2023 HIV AB/P2 4 AG WITH REFLE X HIV Ab/P24 Ag screen Non Reacti ve nonrea ctive HIV Negat karin HIV-1 /HIV- 2 antib odies and HIV-1 p24 antig en were NOT detec kenzie. There is no labor atory evide nce of HIV infec tion. Not Available [facility] ([facility]) [address], [place], [address], 07/02/2023 07:13:11 06/28/19 24 06/29/2023 INTER PRETA TION: interpretati on: Commen t Not infec kenzie with HCV unles s early or acute infec tion is suspe cted (whic h may be delay ed in an immun ocomp romis ed indiv idual ), or other evide nce exist s to indic ate HCV infec tion. Not Available [facility] ([facility]) [address] [place], [address], 07/02/2023 07:13:07 08/07/19 24 08/09/2023 CT, NG, TRICH VAG BY ALEXANDRA chlamydia by ALEXANDRA Negati ve negati ve Not Available [facility] ([facility]) [address] [place], [address], 08/10/2023 07:13:38 08/07/19 24 08/09/2023 CT, NG, TRICH VAG BY ALEXANDRA gonococcus by ALEXANDRA Negati ve negati ve Not Available [facility] ([facility]) [address] [place], [address], 08/10/2023 07:13:38 08/07/1908/09/2023 CT, NG, TRICH VAG BY ALEXANDRA trich vag by ALEXANDRA Negati ve negati ve Not Available [facility] ([facility]) [address] [place], [address], 08/10/2023 07:13:38 08/27/19 24 08/29/2023 NUA B VAGIN ITIS PLUS (VG+) atopobium vaginae High - 2 score abnormal Not Available [facility] ([facility]) [address] [place], [address], 08/29/2023 07:16:24 08/27/1908/29/2023 NUA B VAGIN ITIS PLUS (VG+) bvab 2 Low - 0 score Not Available [facility] ([facility]) [address] [place], [address], 08/29/2023 07:16:24 08/27/19 24 08/29/2023 NUA B [...] Drug Admin istra tion. Not Available [facility] ([facility]) [address] [place], [address], 08/29/2023 07:16:24 08/27/19 24 08/29/2023 NUSWA B VAGIN ITIS PLUS (VG+) raine albicans, ALEXANDRA Negati ve negati ve Not Available [facility] ([facility]) [address] [place], [address], 08/29/2023 07:16:24 08/27/19 24 08/29/2023 NUA B VAGIN ITIS PLUS (VG+) raine glabrata, ALEXANDRA Negati ve negati ve Not Available [facility] ([facility]) [address] [place], [address], 08/29/2023 07:16:24 08/27/19 24 08/29/2023 NUA B VAGIN ITIS PLUS (VG+) trich vag by ALEXANDRA Negati ve negati ve Not Available [facility] ([facility]) [address] [place], [address], 08/29/2023 07:16:24 08/27/19 24 08/29/2023 NUA B VAGIN ITIS PLUS (VG+) chlamydia trachomatis, ALEXANDRA Negati ve negati ve Not Available [facility] ([facility]) [address] [place], [address], 08/29/2023 07:16:24 08/27/19 24 08/29/2023 NUA B VAGIN ITIS PLUS (VG+) neisseria gonorrhoeae, ALEXANDRA Negati ve negati ve Not Available [facility] ([facility]) [address] [place], [address], 08/29/2023 07:16:24 Result Notes None recorded. Problems [...] Address Organization Details Last Updated DateTime 4 69180.4 6 g 79 /min 18 /min 35.9 kg/m2 160.02 cm 120 mm[Hg] 83 mm[Hg] Nelda Gore [facility] 4 10:23:36 Date Recorded Body height Body mass index (BMI) Body weight Heart rate Systolic blood pressure Diastolic blood pressure Provider Name and Address Organization Details Last Updated DateTime 4 160.02 cm 35.9 kg/m2 30790.8 5 g 67 /min 147 mm[Hg] 83 mm[Hg] Yara Orozco MA [facility] 4 14:32:09 Date Recorded Body height Body mass index (BMI) Body weight Heart rate Respiratory rate Systolic blood pressure Diastolic blood pressure Provider Name and Address Organization Details Last Updated DateTime 4 160.02 cm 35.7 kg/m2 22095.8 7 g 71 /min 16 /min 126 mm[Hg] 83 mm[Hg] Nelda Gore [facility] 4 14:23:44 Date Recorded Body height Body mass index (BMI) Body weight Heart rate Respiratory rate Systolic blood pressure Diastolic blood pressure Provider Name and Address Organization Details Last Updated DateTime 4 160.02 cm 36.1 kg/m2 25873.8 4 g 75 /min 16 /min 123 mm[Hg] 76 mm[Hg] Nelda Gore [facility] 4 12:28:43 Social History Question Answer Notes LastModified by Organizat ion Details LastModified Time Tobacco Smoking Status Never Smoker Nelda Gore null, [facility] 06/28/2023 10:28:30 In The 14 Days Before Symptom Onset, Have You Had Close Contact With A Laboratory-confirm ed COVID-19 While That Case Was Ill? No Information n ot available 06/28/2023 In The 14 Days Before Symptom Onset, Have You Had Close Contact With A Person Who Is Under Investigation For COVID-19 While That Person Was Ill? No Information not available 06/28/2023 Have You Been To An Area Known To Be High Risk For COVID-19? No [email or web address] Information not available 06/28/2023 What Was The Date Of Your Most Recent Tobacco Screening? 08/27/2023 [email or web address] Information not available 08/27/2023 Are You Sexually Active? Yes [email or web address] Information not available 06/28/2023 Do You Have Smoke And Carbon Monoxide Detectors In Your Home? Yes [email or web address] Information not available 06/28/2023 Are You Passively Exposed To Smoke? No [email or web address] Information no t available 06/28/2023 Do You Use Any Illicit Or Recreational Drugs? No [email or web address] Information not available 08/07/2023 Has Tobacco Cessation Counseling Been Provided? Yes [email or web address] Information not available 08/07/2023 Do You Or Have You Ever Used Any Other Forms Of Tobacco Or Nicotine? No [email or web address] Information not available 06/28/2023 Sex: Female Functional [...] SNOMED-CT Code Diagnosis ICD10 Code Diagnosis Note [id number] CELESTINA Castellanos [address] [facility] [place] [address] 06/28/2023 10:11:48 07/01/2023 07:28:40 Venereal disease screening 237720257 Z11.3 1. STD testing done per pt request 2. Educated pt on STD prevention , Condom use 3. Pt verbalized understand ing 4. Will follow up pending lab results, as needed or at next annual Obesity 660139799 E66.9 Discussed diet and weight loss. Discussed making healthier food choices and increasing exercise. Discussed going to a level glass vial filler. [id number] CELESTINA Castellanos [address] [place] [address] 07/16/2023 14:22:55 07/17/2023 08:55:14 Vaginal discharge [id number] N89.8 Nuswab done and sent to lab. Counseled on STD prevention and condom use. Counseled on yeast and BV prevention . Will follow up pending lab results. [id number] CELESTINA Castellanos [address] [place] [address] 08/07/2023 14:14:35 08/08/2023 08:20:36 Obesity 381654635 E66.9 Discussed diet and weight loss. Discussed making healthier food choices and increasing exercise. Discussed going to a level glass vial filler. Positive s creening for depression on PHQ-9 (Patient Health Questionnaire 9) [id number] 35984 Z13.31 . Denies thoughts of self harm or harming others. Pt instructed to call 911 if depression worsens or go to ED. History of sexually transmitted disease 256936061 Z86.19 1. STD testing done per pt request 2. Educated pt on STD prevention , Condom use 3. Pt verbalized understand ing 4. Will follow up pending lab results, as needed or at next annual [id number] CELESTINA Castellanos [address] [place] [address] 08/27/2023 12:15:29 08/28/2023 10:16:11 Vaginal discharge 556066352 N89.8 Nuswab done and sent to lab. Counseled on STD prevention and condom use. Counseled on yeast and BV prevention . Will follow up pending lab results. Obesity 204940971 E66.9 Discussed diet and weight loss. Discussed making healthier food choices and increasing exercise. Discussed going to a level glass vial filler. Health Concerns Section Related Observation LastModified by Organization Detai ls LastModified Time None Recorded Concern Status LastModified by Organization Details LastModified Time None Recorded Advance Directives Directive None Recorded Payers Encounter Date Sequence Insurance Name Policy Number Policy [place] Covered Member ID [place] Member ID Guarantor Name 06/28/2023 1 [facility] (MEDICARE REPLACEMENT/A DVANTAGE - HMO) [id number] Sanjana Emil [id number] Sanjana Emil 07/16/2023 1 [facility] (MEDICARE REPLACEMENT/A DVANTAGE - HMO) [id number] Sanjana Emil [id number] Sanjana Emil 08/07/2023 1 [id number] (MEDICARE REPLACEMENT/A DVANTAGE - HMO) [id number] Sanjana Emil [id number] Sanjana Emil 08/27/2023 1 [facility] (MEDICARE REPLACEMENT/A DVANTAGE - HMO) [id number] Sanjana Emil [id number] Sanjana Emil Notes Date Note Type Note [...] std testing CELESTINA Castellanos Attn: [address] [place], [address], [facility] 06/28/2023 11:59:45 07/16/2023 text/html Annual [...] on meds CELESTINA Castellanos Attn: [address] [place], [address], [facility] 07/16/2023 15:18:31 08/07/2023 text/html Annual GYNReport [...] trich 07/02/23 CELESTINA Castellanos Attn: [address] [place], [address], [facility] 08/07/2023 14:34:58 08/27/2023 text/html Annual GYNReport [...] trich 07/02/23 CELESTINA Castellanos Attn: [address] [place], [address], [facility] 08/27/2023 12:46:10 OBGyn Episode No OBEpisode recorded.
--- OUTSIDE RECORDS SUMMARY | 2024-09-23 15:55 | XMS_ITS | Clinical Summary ---
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 before breakfast Active ezetimibe (ZETIA) 10 mg [...] Department Care Team Description 07/23/2024 Orders Only [facility] Cardiology [address] [place] [address] Xiomy Tony MD from Last 3 Months Social History Tobacco Use Types Packs/Day Years Used Date Smoking Tobacco: Never Tobacco Cessation:Counseling Given: Not Answered Comments Unknown Sex and Gender Information Value Date Recorded Sex Assigned at Not on file Legal Sex Female 8:30 PM POULTRY HANGER Gender Identity Not on file Sexual Orientation Not on file Obstetrics History Last Filed Vital Signs Vital Sign Reading Time Taken Comments Blood Pressure 142/77 04/14/2015 10:47 AM POULTRY HANGER Pulse 66 04/14/2015 10:47 AM POULTRY HANGER Temperature 35.9 C (96.7 F) 02/13/2024 12:38 PM CDT Respiratory Rate - - Oxygen Saturation 94% 04/14/2015 10:47 AM POULTRY HANGER Inhaled Oxygen Concentration - - Weight 86.8 kg (191 lb 6.4 oz) 02/13/2024 12:38 PM CDT Height 162.6 cm (5' 4 ) 04/14/2015 10:47 AM POULTRY HANGER Body Mass Index 32.85 04/14/2015 10:47 AM POULTRY HANGER Plan of Treatment Health Maintenance Due Date [...] CARDIOLOGY DOCUMENT SCAN Routine 07/14/2024 4:06 PM POULTRY HANGER from Last 3 Months Results * Cardiology Document Scan (07/14/2024 4:06 PM POULTRY HANGER) Anatomical Region Laterality Modality Other us Ripa Afshin Tony MD CV CARDIAC SERVICES PRO CEDURES Final Result from Last 3 Months Insurance [facility] MEDICARE ADVANTAGE Care Teams Air And Hydronic Balancing Technician Relationship Specialty Start Date End Date Moon Choi NP PCP - General Nurse Practitioner 08/05/23
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
[2024-09-23] MEDS: KETOROLAC 10 MG TABLET PO (16:24)
[2024-09-23] MEDS: traMADol HCL (*CRX) 50 MG TABLET PO (16:46)
[2024-09-23 16:51] VITALS: BP 139/87; PULSE 77; RESP 16; O2SAT 98
--- OUTSIDE RECORDS SUMMARY | 2024-09-23 17:31 | XMS_ITS | Referral Summary ---
Author Organization [address] Address [facility] [place] [address] Care Team Providers Care Prosthetist Name Role Phone Moon Choi NP Primary Care Provider Encounters Date Type Department Care Team Description 07/23/[address] [facility] Cardiology [address] [place] [address] Xiomy Tony MD from Last [...] 1 tablet (75 mcg total) by mouth chicken stuffer before breakfast Active ezetimibe (ZETIA) 10 mg [...] on file Legal Sex Female 8:30 PM WET MIX OPERATOR Gender Identity Not on file Sexual Orientation Not on file Last Filed Vital Signs Vital Sign Reading Time Taken Comments Blood Pressure 142/77 04/14/2015 10:47 AM WET MIX OPERATOR Pulse 66 04/14/2015 10:47 AM WET MIX OPERATOR Temperature 35.9 C (96.7 F) 02/13/2024 12:38 PM CDT Respiratory Rate - - Oxygen Saturation 94% 04/14/2015 10:47 AM WET MIX OPERATOR Inhaled Oxygen Concentration - - Weight 86.8 kg (191 lb 6.4 oz) 02/13/2024 12:38 PM CDT Height 162.6 cm (5' 4 ) 04/14/2015 10:47 AM WET MIX OPERATOR Body Mass Index 32.85 04/14/2015 10:47 AM WET MIX OPERATOR Plan of Treatment Not on file Procedures Procedure Name Priority Date/Time Associated Diagnosis Comments CARDIOLOGY DOCUMENT SCAN Routine 07/14/2024 4:06 PM WET MIX OPERATOR from Last 3 Months Results * Cardiology Document Scan (07/14/2024 4:06 PM WET MIX OPERATOR) Anatomical Region Laterality Modality Other us Ripa Afshin Tony MD CV CARDIAC SERVICES PRO CEDURES Final Result from Last 3 Months Insurance [facility] MEDICARE ADVANTAGE Care Teams Prosthetist Relationship Specialty Start Date End Date Moon Choi NP PCP - General Nurse Practitioner 08/05/23
--- OUTSIDE RECORDS SUMMARY | 2024-09-23 17:31 | XMS_ITS | Clinical Summary ---
Author Organization [facility] Address [address] [place] [id number] Care Team Providers Care Fish Cake Maker Name Role Phone Unavailable Primary Care Provider Unavailabl e Social History Tobacco Use Types Packs/Day Years Used Date Smoking Tobacco: Never Assessed Comments Unknown Sex and Gender Information Value Date Recorded Sex Assigned at Not on file Legal Sex Female 12:07 PM VISION REHABILITATION THERAPIST Gender Identity Not on file Sexual Orientation [...]
--- OUTSIDE RECORDS SUMMARY | 2024-09-23 17:31 | XMS_ITS | Clinical Summary ---
Author Organization [facility] Address [address] [place] [address] Care Team Providers Care Circular Tank Cooper Name Role Phone Jayden Burgess MD Primary Care Provider Source Comments [facility],non-owned Affiliates and Associated Physician Practices is amultiple site organization consisting of ambulatory clinics and hospital sitesin [place], [place], [place] and [place]. This disclosure is being madepursuant to the Care Everywhere program and may not contain all information available regarding this patient. Last updated 18.[facility] Allergies No known active allergies Medications * [...] MEDICARE ADV MANAGED MEDICARE ADV Care Teams Circular Tank Cooper Relationship Specialty Start Date End Date Jayden Burgess MD [address] [place] [id number] PCP - General 08/28/22
--- OUTSIDE RECORDS SUMMARY | 2024-09-23 17:31 | XMS_ITS | Clinical Summary ---
Author Organization [facility] Address [facility] [place] [address] Care Team Providers Care Geothermal Operations Manager Name Role Phone Unavailable Primary Care [...]
--- OUTSIDE RECORDS SUMMARY | 2024-09-23 17:31 | XMS_ITS | Clinical Summary ---
Author Organization [address] Address [address] [place] [id number] Care Team Providers Care Production Illustrator Name Role Phone Moon Choi NP Primary Care Provider [phone] Allergies No known active allergies Medications losartan [...] 1 tablet (75 mcg total) by mouth respiratory physician before breakfast Active ezetimibe (ZETIA) 10 mg [...] Department Care Team Description 07/23/2024 Orders Only [facility] Cardiology [address] [place] [address] Xiomy Tony MD from Last 3 Months Social History Tobacco Use Types Packs/Day Years Used Date Smoking Tobacco: Never Tobacco Cessation:Counseling Given: Not Answered Comments Unknown Sex and Gender Information Value Date Recorded Sex Assigned at Not on file Legal Sex Female 8:30 PM NEW ACCOUNTS REPRESENTATIVE Gender Identity Not on file Sexual Orientation Not on file Obstetrics History Last Filed Vital Signs Vital Sign Reading Time Taken Comments Blood Pressure 142/77 04/14/2015 10:47 AM NEW ACCOUNTS REPRESENTATIVE Pulse 66 04/14/2015 10:47 AM NEW ACCOUNTS REPRESENTATIVE Temperature 35.9 C (96.7 F) 02/13/2024 12:38 PM CDT Respiratory Rate - - Oxygen Saturation 94% 04/14/2015 10:47 AM NEW ACCOUNTS REPRESENTATIVE Inhaled Oxygen Concentration - - Weight 86.8 kg (191 lb 6.4 oz) 02/13/2024 12:38 PM CDT Height 162.6 cm (5' 4 ) 04/14/2015 10:47 AM NEW ACCOUNTS REPRESENTATIVE Body Mass Index 32.85 04/14/2015 10:47 AM NEW ACCOUNTS REPRESENTATIVE Plan of Treatment Health Maintenance Due Date [...] CARDIOLOGY DOCUMENT SCAN Routine 07/14/2024 4:06 PM NEW ACCOUNTS REPRESENTATIVE from Last 3 Months Results * Cardiology Document Scan (07/14/2024 4:06 PM NEW ACCOUNTS REPRESENTATIVE) Anatomical Region Laterality Modality Other us Ripa Afshin Tony MD CV CARDIAC SERVICES PRO CEDURES Final Result from Last 3 Months Insurance [facility] MEDICARE ADVANTAGE Care Teams Production Illustrator Relationship Specialty Start Date End Date Moon Choi NP PCP - General Nurse Practitioner 08/05/23
== END 2024-09-23 16:48 | disposition home or self-care (01) ==
PROVIDERS: Emergency Provider Student in an Organized Health Care Education/Training Program; PCP Internal Medicine
DX: M25.511 Pain in right shoulder (principal); M71.9 Bursopathy, unspecified; M75.101 Unspecified rotator cuff tear or rupture of right shoulder, not specified as traumatic; E78.5 Hyperlipidemia, unspecified; I10 Essential (primary) hypertension; E11.9 Type 2 diabetes mellitus without complications
CPT/HCPCS: 73030; 93005; 99283; A9270

== ENCOUNTER 2025-04-21 08:52 | Outpatient (CLI) | payer MEDICARE, SELFPAY ==
[2025-04-21 13:09] LABS: Hematocrit 38.0 % (37.0-47.0); Hemoglobin 11.8 g/dL (12.0-15.0); Immature Granulocyte Percent A 0.2 % (0-0.5); Lymphocytes Absolute Auto 2.27 K/mm3 (0.9-3.2); Mean Corpuscular HGB Conc 31.1 g/dl (32-36); Mean Corpuscular Hemoglobin 29.8 pg (26-34); Mean Corpuscular Volume 96.0 fl (80-100); Nucleated Red Blood Cells Absolute Auto 0.000 K/mm3 (0.0-0.012); Nucleated Red Blood Cells Perc 0.0 % (0.0-0.2); Platelet Count Result 348 k/mm3 (150-375); Red Blood Count 3.96 M/mm3 (4.2-5.4); White Blood Count 4.5 K/mm3 (4.5-10.0)
[2025-04-21 15:00] LABS: MALB Creatinine Ratio 9.7 mg/g (0-30)
[2025-04-21 16:44] LABS: Alanine Aminotransferase 41 U/L (6-35); Albumin Level 4.4 g/dL (3.5-5.1); Alkaline Phosphatase 97 U/L (38-126); Anion Gap 8 mmol/L (4-12); Aspartate Amino Transferase 40 U/L (14-36); Bilirubin,Total 0.5 mg/dL (0.2-1.3); Blood Urea Nitrogen 22 mg/dL (7-17); Calcium 9.6 mg/dL (8.4-10.2); Carbon Dioxide 27 mmol/L (22-30); Chloride 105 mmol/L (98-107); Cholesterol 190 mg/dL (0-200); Estimated Glomerular Filt Rate > 60; Glucose 85 mg/dL (65-110); HDL Direct 66 mg/dL; Potassium 4.1 mmol/L (3.4-5.0); Sodium 140 mmol/L (137-145); Total Protein 8.1 g/dL (6.3-8.2); Triglycerides 57 mg/dL (<150)
[2025-04-21 19:39] LABS: Thyroid Stimulating Hormone 4.480 uIU/mL (0.465-4.680)
[2025-04-21 20:32] LABS: Hemoglobin A1C 6.0 % (<5.7)
== END 2025-04-21 08:53 | disposition home or self-care (01) ==
PROVIDERS: PCP Internal Medicine; Visit Provider Nurse Practitioner
DX: E78.2 Mixed hyperlipidemia (principal); E11.9 Type 2 diabetes mellitus without complications; E03.9 Hypothyroidism, unspecified; E55.9 Vitamin D deficiency, unspecified
CPT/HCPCS: 36415; 80053; 80061; 82043; 82306; 83036; 84443; 85025

== ENCOUNTER 2025-04-26 16:06 | Outpatient (CLI) | payer MEDICARE, SELFPAY ==
--- OUTSIDE RECORDS SUMMARY | 2025-02-09 04:17 | XMS_ITS | Continuity of Care Document ---
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 armLumbagoHyper tension, BenignDecreased libido Sep-1 5-201 5 Dillon Brisa. [address] [facility], [place], [place], [address] . tel: [phone] Referring Provider: Momo Blackburn, [address] [facility], [place], [address] . tel:[phone] [facility], [address], [place], [place], [address] , [place] tel: [phone] [facility] Well woman exam with routine gynecological examScreening Dillon Brisa. [address] [facility], [place], [place], [address] . tel: [phone] Referring Provider: Momo Blackburn, [address] [place] [address], [place], [address] . tel:[phone] [facility], [address], [place], [place], [address] , [place] tel: [phone] [facility] Sprain of ligaments of cervical spineObesityLum bago Dillon Brisa. [address] [facility], [place], [place], [address] . tel: [phone] Referring Provider: Momo Blackburn, [address] [place] [address], [place], [address] . tel:[phone] [facility], [address], [place], [place], [address] , [place] tel: [phone] [facility] Hypertension, BenignMixed HyperlipidemiaE picondylitis, lateralLateral cutaneous femoral nerve of thigh compression or syndrome 4 Dillon Barr. [address] [facility], [place], [place], [address] . tel: [phone] Referring Provider: Momo Blackburn, [address] [facility], [place], [address] . tel:[phone] [facility], [address], [place], [place], [address] , [place] tel: [phone] [facility] Mammogram, Screening 4 Dillon Barr. [address], [place], [address] . tel: [phone] [facility], [address], [place], [place], [address] , [place] tel: [phone] [facility] 4 Dillon Barr. [address] [facility], [place], [place], [address] . tel: [phone] Referring Provider: Momo Blackburn, [address] [facility], [place], [address] . tel:[phone] [facility], [address], [place], [place], [address] , [place] tel: [phone] [facility] Hypertension, BenignMixed HyperlipidemiaL umbago 3 Dillon Barr. [address], [place], [address] . tel: [phone] Referring Provider: Momo Blackburn, [facility] [facility], [place], [address] . tel:[phone] [facility], [address], [place], [place], [address] , [place] tel: [phone] [facility] 3 Dillon Barr. [address] [facility], [place], [place], [address] . tel: [phone] Referring Provider: Momo Blackburn, [address] [facility], [place], [address] . tel:[phone] [facility], [address], [place], [place], [address] , [place] tel: [phone] [facility] Spasm of muscleLumbago 0 3 Dillon Barr. [address] [facility], [place], [place], [address] . tel: [phone] Referring Provider: Momo Blackburn, [facility] [facility], [place], [address] . tel:[phone] [facility], [address], [place], [place], [address] , [place] tel: [phone] [facility] Benign essential hypertensionMix ed hyperlipidemiaA bnormal blood test 3 Dillon Ledzema. [address] [facility], [place], [place], [address] . tel: [phone] Referring Provider: Momo Blackburn, [address] [facility], [place], [address] . tel:[phone] [facility], [address], [place], [place], [address] , [place] tel: [phone] [facility] Cervical paraspinal muscle spasm 3 Dillon Barr. [address] [facility], [place], [place], [address] . tel: [phone] Referring Provider: Momo Blackburn, [address] [facility], [place], [address] . tel:[phone] [facility], [address], [place], [place], [address] , [place] tel: [phone] [facility] Benign essential hypertensionMix ed hyperlipidemiaC hronic major depressive disorderSkin punctureNEED FOR PROPHYLACTIC VACCINATION WITH COMBINED DIPHTHERIA-TETA NUS-PERTUSSIS (DTP) (DTAP) VACCINE 3 Dillon Ledezma. [address], [place], [address] . tel: [phone] Referring Provider: Momo Blackburn, [address] [facility], [place], [address] . tel:[phone] [facility], [address], [place], [place], [address] , [place] tel: [phone] [facility] Benign essential hypertensionGen eralized anxiety disorderDepress ionLumbago 3 Dillon Barr. [address] [facility], [place], [place], [address] . tel: [phone] Referring Provider: Momo Blackburn, [address] [facility], [place], [address] . tel:[phone] [facility], [address], [place], [place], [address] , [place] tel: [phone] [facility] Anxiety attackLumbago 3 Dillon Barr. [address] [place], [place], [address] . tel: [phone] Referring Provider: Momo Blackburn, [address] [facility], [place], [address] . tel:[phone] [facility], [address], [place], [place], [address] , [place] tel: [phone] [facility] Anxiety attack Apr- 7-201 3 Dillon Barr. [address] [facility], [place], [place], [address] . tel: [phone] Referring Provider: Momo Blackburn, [address] [facility], [place], [address] . tel:[phone] [facility], [address], [place], [place], [address] , [place] tel: [phone] [facility] Benign essential hypertensionMix ed hyperlipidemiaB enign essential hypertensionMix ed hyperlipidemia 1201 2 Dillon aBrr. [address] [facility], [place], [place], [address] . tel: [phone] Referring Provider: Momo Blackburn, [address] [facility], [place], [address] . tel:[phone] [facility], [address], [place], [place], [address] , [place] tel: [phone] [facility] Strain of knee and leg, right Feb-2 0-201 2 Dillon Ledezma. [address], [place], [address] . tel: [phone] Referring Provider: Momo Blackburn, [address] [facility], [place], [address] . tel:[phone] [facility], [address], [place], [place], [address] , [place] tel: [phone] [facility] Benign essential hypertensionMix ed hyperlipidemiaS prain of medial collateral ligament of knee Feb-0 7-201 2 Dillon Ledezma. [address], [place], [address] . tel: [phone] Referring Provider: Momo Blackburn, [address] [facility], [place], [address] . tel:[phone] Family History Family Member Type Diagnosis Age [...] Source: New I mmunization Record Fluzone Quad 1373-2920, spli t virus, 3 yrs and older refused Source: New Immun ization Record Tdap administered Source: New Imm unization Record Flu (split) (3 yrs or older) cancelled Source: New Immunization Record Flu (split) (3 yrs or older) cancelled Source: New Immunization Record Pneumo (2 yrs or older) (PPV23) cancelled Source: New Immuniza tion Record Payers Payer name Insurance type Covered constitution party ID Authoriza tion(s) [facility] ADVANTAGE PPO MB [id number] [facility] ADVANTAGE PPO MB [id number] [employer] [place]ENTRY CI [id number] [employer] [place] CI [id number] [employer] OPEN ACCESS CI [id number] Social History Type Description Quantity Date Captured [...] counseling completed Referral Ordered: Arleen -Sleep Studies [facility] (related to Snoring) ordered Referral Referred To: Arleen [address] [place], [phone] Ordered: Referrals: Sleep Studies. Arleen. Location: [facility]. Evaluation/diagnostic/treatment - Level 3 ordered Referral Ordered: NELLY Prado -Urology [facility] (related to Polyuria) ordered Referral Referred To: NELLY Prado [address], [place], [phone] Ordered: Referrals: Urology. NELLY Prado. Location: [facility]. Evaluation/diagnostic/treatment - Level 3 ordered Referral Referred To: [facility]
[address], [phone] Ordered: X-RAY EXAM OF SHOULDER, COMPLETE Right ordered Referral Referred To: [address] [facility]
[address], [address] [phone] Ordered: X-RAY EXAM OF HUMERUS, MIN 2 VIEWS Right ordered Referral Referred To: Moise Wall MD [address] [place], [phone] Ordered: Referrals: Ophthalmology. Moise Wall MD. Evaluation/diagnostic/treatment - Level 3 Appointment date/timeframe: 03/12/2022 ordered Referral Referred To: Maryam Rios DPM [address] [place], [phone] Ordered: Referrals: Podiatry. Maryam Rios DPM. Evaluation/diagnostic/treatment - Level 3 Appointment date/timeframe: 01/29/2022 ordered Referral Ordered: Alexus Chappell -[facility] (related to Type 2 diabetes mellitus without complication, without long-term current use of insulin) ordered Referral Referred To: Alexus Chappell Ordered: Referrals: Ship Keeper. Alexus Chappell. Location: [facility] [address] [facility] [address] [place] [address]. Evaluation/diagnostic/treatment - Level 3 Appointment date/timeframe: 11/08/2021 ordered Referral Referred To: 2022 [facility]
[address] [place], [phone] Ordered: Bone density study of axial skeleton ordered Referral Referred To: 2022 [facility]
[address] [place], [address] [phone] Ordered: COMPUTED TOMOGRAPHY, BONE MINERAL DENSITY STUDY, 1 OR MORE SITES AXIAL SKELETON( ordered Referral Referred To: [facility]22 [facility]
[address] [place], [address] [phone] Ordered: X-RAY LUMBAR SPINE, COMPLETE ordered History [...] did go to urology at [facility] or [facility]. Told nothing was wrong per pt Follow [...] Follow up Patient was saúl uated at [facility] for right sided chest, shoulder, and [...] include fatigue, weight gain and weight loss. DM/HTN 1) Essential (pr imary) hypertension (Stable. [...] Buspirone as needed for anxiety related symptoms. 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 She denies chest pain, shortness of [...] include fatigue, weight gain and weight loss. 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 Cold symptoms DM/HTN Additional infor ladi: She had a [...] Assessmen t No Information Instructions Date Instruction Additional Marvinr ladi --Refer for Sleep Study Related to [...] process Records are being re quested from [facility]. A prescription for Ibuprofen 800mg 1 [...]
--- OUTSIDE RECORDS SUMMARY | 2025-04-26 18:21 | XMS_ITS | Clinical Summary ---
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 Gender Identity Not on file Sexual Orientation Not on file Last Filed Vital Signs Vital Sign Reading Time Taken Comments Blood Pressure 142/77 04/14/2015 10:47 AM NUCLEAR TECHNICIAN Pulse 66 04/14/2015 10:47 AM NUCLEAR TECHNICIAN Temperature 35.9 C (96.7 F) 02/13/2024 12:38 PM CDT Respiratory Rate - - Oxygen Saturation 94% 04/14/2015 10:47 AM NUCLEAR TECHNICIAN Inhaled Oxygen Concentration - - Weight 86.8 kg (191 lb 6.4 oz) 02/13/2024 12:38 PM CDT Height 162.6 cm (5' 4) 04/14/2015 10:47 AM NUCLEAR TECHNICIAN Body Mass Index 32.85 04/14/2015 10:47 AM NUCLEAR TECHNICIAN Plan of Treatment Health Maintenance Due Date Last Done Comments Breast Cancer Screening-Mammogram 1954 Colon Cancer Screening-Colonoscopy 1954 Depression Screening 1954 Fall Risk Assessment 1954 Hepatitis C Screening 1954 Osteoporosis Screening-Bone Density Scan 1954 DTaP/Tdap/Td Vaccine (1 - Tdap) 1965 Hepatitis B Screening 1972 Well Visit 65+ 2019 Covid-19 Vaccine (2024-2 6 season) 2025 04/13/2023, 04/16/2022, 11/08/2021, Additional history exists Influenza Vaccine (#1) 2025 04/13/2023, 2022 Pneumococcal vaccine 65+ Completed 03/18/2023 Zoster Vaccine Completed 08/13/2023, 01/03/2023 Insurance [facility] MEDICARE ADVANTAGE Care Teams Car Repairer Pullman Relationship Specialty Start Date End Date Moon Choi NP PCP - General Nurse Practitioner 08/05/23
--- OUTSIDE RECORDS SUMMARY | 2025-04-26 18:21 | XMS_ITS | Clinical Summary ---
Author Organization [facility] Address [address] [place] [address] Care Team Providers Care Safety Assistant Name Role Phone Unavailable Primary Care Provider Unavailabl e Social History Tobacco Use Types Packs/Day Years Used Date Smoking Tobacco: Never Assessed Comments Unknown Sex and Gender Information Value Date Recorded Sex Assigned at Not on file Legal Sex Female 12:07 PM CARDBOARD CUTTER Gender Identity Not on file Sexual Orientation Not on file Plan of Treatment Health Maintenance Due Date Last Done Comments Hepatitis C Virus (HCV) Screening 1954 TdaP Immunization 1954 Cologuard 1999 Colonoscopy 1999 Colorectal Cancer Screening 1999 Immunochemical Fecal Occult Blood 1999 Pneumococcal Immunization (5 0+ years) (1 of 1 - PCV) 2004 Zoster Immunization (1 of 2) 2004 Influenza Immunization (#1) 2025 SARS-COV-2 Immunization (1 - 2023- season) 2025 Respiratory Syncytial Virus (RSV) Immunization (Adult) (1 - 1-dose 75+ series) 2029 Hepatitis B Immunization Aged Out No longer eligible based on patient's age to complete this topic Human Papillomavirus (HPV) Immunization Aged Out No longer eligible b ased on patient's age to complete this topic Meningococcal Immunization (ACWY) Aged Out No longer eligible based on patient's age to complete this topic Rotavirus Immunization Aged Out No lo nger eligible based on patient's age to complete this topic
--- OUTSIDE RECORDS SUMMARY | 2025-04-26 18:21 | XMS_ITS | Clinical Summary ---
Author Organization [email or web address] Address [address] [place] [address] Care Team Providers Care Necktie Centralizing Machine Operator Name Role Phone Jayden Burgess MD Primary Care Provider [phone] Source Comments [email or web address],non-owned Affiliates and Associated Physician Practices is amultiple site organization consisting of ambulatory clinics and hospital sitesin [place], [place], [place] and [place]. This disclosure is being madepursuant to the Care Everywhere program and may not contain all information available regarding this patient. Last updated 18.[email or web address] Allergies Active Allergy Reactions Criticality Noted Date Comments Lisinopril Cough 03/25/2017 Medications * Be aware that medications may [...] once daily Active oxyBUTYnin (Ditropan) 5 MG tabletIndicati ons:Overactive Bladder Take 1 (one) tablet by mouth at bedtime Reasons: Overactive Bladder 30 tablet 3 3 Active ibuprofen (Motrin) 800 MG tablet Take 1 (one) tablet by mouth 2 times daily as needed For pain. Active benzonatate (Tessalon) 100 MG capsule TAKE 1 CAPSULE BY MOUTH EVERY 8 HOURS NEEDED FOR COUGH 5 Active Ozempic, 2 MG/DOSE, 8 MG/3ML pen INJECT 2MG SUBCUTANEOUSLY WEEKLY. 5 Active fluticasone-sa lmeterol (Advair/Wixela ) 250-50 MCG/ACT inhaler INHALE 1 DOSE BY MOUTH TWICE DAILY FOR ASTHMATIC BRONCHITIS. SPRAY 1 OR 2 PUFFS IN THROAT WHILE RAPIDLY INHALING TWICE DAILY. Active [place]-3 Fatty Acids (fish oil) 500 MG capsule Take 1,000 (one thousand) mg by mouth every 7 days (once a week) Active cetirizine (ZyrTEC) 10 MG tablet Take by mouth once daily Active ascorbic acid (Vitamin C) 500 MG tablet Take 1 (one) tablet by mouth once daily Active Encounters Date Type Department Care Team Description 04/20/2025 1:33 PM LEAD RELAY TESTER - 04/20/2025 11:59 PM LEAD RELAY TESTER Hospital Encounter [facility] - Outside Imaging Discharge Disposition: Home or Self Care 04/20/2025 1:00 PM LEAD RELAY TESTER Office Visit [facility] [address] [place] [phone] Booker Marie MD Chronic right shoulder pain (Primary Dx) 04/20/2025 Travel 04/19/2025 Telephone [facility] [address] [place] [phone] Vashti Haley RN General 03/25/2025 Travel from Last 3 Months Social History Tobacco Use Types Packs/Day Years Used Date Smoking Tobacco: Never Smokeless Tobacco: Never Tobacco Cessation:Counseling Given: No Alcohol Use Standard Drinks/Week Comments Yes 0 (1 standard drink = 0.6 oz pur e alcohol) occ Comments Unknown Sex and Gender Information Value Date Recorded Sex Assigned at Not on file Legal Sex Female 10:19 AM CDT Gender Identity Not on file Sexual Orientation Not on file Last Filed Vital Signs Vital Sign Reading Time Taken Comments Blood Pressure 119/81 04/20/2025 1:11 PM LEAD RELAY TESTER Pulse 80 04/20/2025 1:11 PM LEAD RELAY TESTER Temperature 36.4 C (97.6 F) 04/20/2025 1:11 PM LEAD RELAY TESTER Respiratory Rate - - Oxygen Saturation 95% 04/20/2025 1:11 PM LEAD RELAY TESTER Inhaled Oxygen Concentration - - Weight 83.9 kg (185 lb) 04/20/2025 1:11 PM LEAD RELAY TESTER Height 160 cm (5' 3) 04/20/2025 1:11 PM LEAD RELAY TESTER Body Mass Index 32.77 04/20/2025 1:11 PM LEAD RELAY TESTER Plan of Treatment Health Maintenance Due Date Last Done Comments BONE DENSITY TESTING 1955 COLOGUARD (AGES 45-75) - COLON CA SCREENING 1954 COLON MONITORING 1954 COLONOSCOPY - COLON CA SCREENING 1954 CT COLONOGRAPHY - COLON CA SCREENING 1954 Colorectal Cancer Screening 1954 FIT - COLON CA SCREENING 1954 FLEX SIG - COLON CA SCREENING 1954 MAMMOGRAM 1954 HEPATITIS C SCREENING 04/28/1972 DTAP/TDAP/TD VACCINES (1 - Tdap) 1973 PNEUMOCOCCAL VACCINE 50+ (1 of 1 - PCV) 2004 ZOSTER VACCINE (1 of 2) 2004 DEPRESSION SCREENING 06/03/2024 MEDICARE AWV CALENDAR YEAR 2024 COVID-19 VACCINE ( - season) 2025 04/16/2022, 11/08/2021, 04/26/2021, Additional history exists INFLUENZA VACCINE (#1) 2025 07/20/2024 SCREENING FOR DIABETES 04/20/2025 Respiratory Syncytial Virus (RSV) Vaccine Pt: or [...] complete this topic MENINGOCOCCAL (Group B) VACCINE SHARED DECISION-MAKING Aged Out No longer eligible based on patient's age to complete this topic MENINGOCOCCAL GROUPS A/C/Y/W VACCINE Aged Out No longer eligible based on patient's age to complete this topic Procedures Procedure Name Priority Date/Time Associated Diagnosis Comments MRI CERVICAL SPINE OUTSIDE Routine 03/15/2025 1:44 PM CDT from Last 3 Months Results * MRI Cervical Spine Outside (03/15/2025 1:44 PM CDT) Narrative [facility] - 04/20/2025 1:44 PM LEAD RELAY TESTER This is a study from an outside facility that has been uploaded into PACS. us Provider Digit[facility] IMAGING Final Result [facility] from Last 3 Months Insurance MANAGED MEDICARE ADV [facility] MANAGED MEDICARE ADV Care Teams Necktie Centralizing Machine Operator Relationship Specialty Start Date End Date Jayden Burgess MD [address] [place] [phone] PCP - General 08/28/22
--- OUTSIDE RECORDS SUMMARY | 2025-04-26 18:21 | XMS_ITS | Data Portability ---
[facility] Address [address] [place] [address] Assessment No assessment recorded. Plan of Treatment Reminders Order Date Submit Date Provider Last Modified By Organization Details Last Modified Time Details Appointments None recorde d. Lab vaginal pathoge ns panel, ALEXANDRA+pro be, vaginal fluid 2023 024 [facility], [address] [place] [address], [id number], 4 07:16:24 chlamyd ia trachom atis + neisser ia gonorrh oeae + trichom onas vaginal is DNA panel, ALEXANDRA+pro be, unspeci fied specime n 2023 024 [facility], [address] [place] [address], [id number], 4 07:13:38 chlamyd ia trachom atis + neisser ia gonorrh oeae + trichom onas vaginal is DNA panel, ALEXANDRA+pro be, unspeci fied specime n 2023 024 [facility], [address] [place] [address], [address], 4 07:13:09 HIV 1 + 2, meaning ful use set 2023 024 [facility], [address] [place] [address], [address], 4 07:13:11 RPR (rapid plasma reagin) , serum 2023 024 [facility], [address] [place] [address], [facility], [place], [address], 4 07:13:10 Hepatit is C IgG Ab, qual, serum 2023 024 [facility], [address] [place] [address], [facility], [place], [address], 4 07:13:07 HBsAg (hepati tis B surface Ag), EIA, serum 2023 024 [facility], [address] [place] [address], [facility], [place], [address], 4 07:13:09 hsv (1+2) igg, serum 2023 024 [facility], [address] [place] [address], [facility], [place], [address], 4 07:13:08 Referral None recorde d. Procedures None recorde d. Surgeries None recorde d. Imaging None recorde d. Medication Orders metroni dazole 500 mg tablet 2023 024 [facility] [address] [place], [address], 4 11:03:02 flucona zole 150 mg tablet 2023 024 [facility] [address] [place], [address], 4 11:02:58 Patient TargetsNo targets recorded. Patient Instructions Encounter Date Encounter Id Patient Instructions Last Modified By Organization Details Last Modified Time 06/28/2023 [id number] A healthy lifestyle: care instructions [facility] Not available 06/28/2023 11:42:04 08/07/2023 [id number] learning about mood disorders [facility] Not available 08/07/2023 14:29:16 A healthy lifestyle: care instructions [email or web address] Not available 08/07/2023 14:29:16 08/27/2023 [id number] A healthy lifestyle: care instructions [email or web address] Not available 08/27/2023 12:43:00 Reason for Referral None Reported. Results Created Date Observation Date Name Description Value Unit Range Abnormal Flag Note LastModifiedBy Organization Detail LastModifiedTime 06/28/19 24 06/29/2023 HCV ANTIB MAU RFX TO QUANT PCR HCV Ab Non Reacti ve nonrea ctive Not Available [facility] ([facility]) [address], [place], [address], 07/02/2023 07:13:07 06/28/19 24 06/29/2023 HSV 1 [...] kenzie to HSV-1 . Not Available [facility] ([facility]) [address], [place], [address], 07/02/2023 07:13:08 06/28/19 24 06/29/2023 HSV 1 [...] a corre lated . Not Available [facility] ([facility]) [address] [place], [address], 07/02/2023 07:13:08 06/28/19 24 07/02/2023 CT, NG, TRICH VAG BY ALEXANDRA chlamydia by ALEXANDRA Negati ve negati ve Not Available [facility] ([facility]) [address] [place], [address], 07/02/2023 07:13:09 06/28/19 24 07/02/2023 CT, NG, TRICH VAG BY ALEXANDRA gonococcus by ALEXANDRA Negati ve negati ve Not Available [facility] ([facility]) [address] [place], [address], 07/02/2023 07:13:09 06/28/19 24 07/02/2023 CT, NG, TRICH VAG BY ALEXANDRA trich vag by ALEXANDRA Positi ve negati ve abnormal Not Available [facility] ([facility]) [address] [place], [address], 07/02/2023 07:13:09 06/28/19 24 06/29/2023 HBSAG SCREE N HBsAg screen Negati ve negati ve Not Available [facility] ([facility]) [address] [place], [address], 07/02/2023 07:13:09 06/28/19 24 06/29/2023 RPR, RFX QN RPR/C ONFIR M TP RPR Non Reacti ve nonrea ctive Not Available [facility] ([facility]) [address] [place], [address], 07/02/2023 07:13:10 06/28/19 24 06/29/2023 HIV AB/P2 4 AG WITH REFLE X HIV Ab/P24 Ag screen Non Reacti ve nonrea ctive HIV Negat karin HIV-1 /HIV- 2 antib odies and HIV-1 p24 antig en were NOT detec kenzie. There is no labor atory evide nce of HIV infec tion. Not Available [facility] ([facility]) [address], [place], [address], 07/02/2023 07:13:11 06/28/19 24 06/29/2023 INTER PRETA TION: interpretati on: Commen t Not infec kenzie with HCV unles s early or acute infec tion is suspe cted (whic h may be delay ed in an immun ocomp romis ed indiv idual ), or other evide nce exist s to indic ate HCV infec tion. Not Available [facility] ([facility]) [address] [place], [address], 07/02/2023 07:13:07 08/07/19 24 08/09/2023 CT, NG, TRICH VAG BY ALEXANDRA chlamydia by ALEXANDRA Negati ve negati ve Not Available [facility] ([facility]) [address] [place], [address], 08/10/2023 07:13:38 08/07/19 24 08/09/2023 CT, NG, TRICH VAG BY ALEXANDRA gonococcus by ALEXANDRA Negati ve negati ve Not Available [facility] ([facility]) [address] [place], [address], 08/10/2023 07:13:38 08/07/19 24 08/09/2023 CT, NG, TRICH VAG BY ALEXANDRA trich vag by ALEXANDRA Negati ve negati ve Not Available [facility] ([facility]) [address] [address], [place], [address], 08/10/2023 07:13:38 08/27/19 24 08/29/2023 NUSWA B VAGIN ITIS PLUS (VG+) atopobium vaginae High - 2 score abnormal Not Available [facility] ([facility]) [address], [place], [address], 08/29/2023 07:16:24 08/27/1908/29/2023 NUA B VAGIN ITIS PLUS (VG+) bvab 2 Low - 0 score Not Available [facility] ([facility]) [address], [place], [address], 08/29/2023 07:16:24 08/27/19 24 08/29/2023 NUA B VAGIN ITIS PLUS (VG+) megasphaera 1 Low - 0 score Calcu late total score by rodriguez meyer the 3 indiv idual bacte rial vagin [...] Drug Admin istra tion. Not Available [facility] ([facility]) [address], [place], [address], 08/29/2023 07:16:24 08/27/19 24 08/29/2023 NUSWA B VAGIN ITIS PLUS (VG+) raine albicans, ALEXANDRA Negati ve negati ve Not Available [facility] ([facility]) [address] [place], [address], 08/29/2023 07:16:24 08/27/19 24 08/29/2023 NUA B VAGIN ITIS PLUS (VG+) raine glabrata, ALEXANDRA Negati ve negati ve Not Available [facility] ([facility]) [address] [place], [address], 08/29/2023 07:16:24 08/27/19 24 08/29/2023 NUA B VAGIN ITIS PLUS (VG+) trich vag by ALEXANDRA Negati ve negati ve Not Available [facility] ([facility]) [address] [place], [address], 08/29/2023 07:16:24 08/27/19 24 08/29/2023 NUA B VAGIN ITIS PLUS (VG+) chlamydia trachomatis, ALEXANDRA Negati ve negati ve Not Available [facility] ([facility]) [address] [place], [address], 08/29/2023 07:16:24 08/27/19 24 08/29/2023 NUA B VAGIN ITIS PLUS (VG+) neisseria gonorrhoeae, ALEXANDRA Negati ve negati ve Not Available [facility] ([facility]) [address] [place], [address], 08/29/2023 07:16:24 Result Notes None recorded. Problems [...] Body mass index (BMI) Body height Systolic And Diastolic Provider Name and Address Organization Details Last Updated DateTime 4 48880.4 6 g 79 /min 18 /min 35.9 kg/m2 160.02 cm 120/83 mm[Hg] Nelda Gore [facility] 4 10:23:36 Date Recorded Body height Body mass index (BMI) Body weight Heart rate Systolic And Diastolic Provider Name and Address Organization Details Last Updated DateTime 07/16/2023 160.02 cm 35.9 kg/m2 28605.85 g 67 /min 147/83 mm[Hg] Yara Orozco MA [facility] 07/16/2023 14:32:09 Date Recorded Body height Body mass index (BMI) Body weight Heart rate Respiratory rate Systolic And Diastolic Provider Name and Address Organization Details Last Updated DateTime 4 160.02 cm 35.7 kg/m2 28508.8 7 g 71 /min 16 /min 126/83 mm[Hg] Nelda Gore [facility] 4 14:23:44 Date Recorded Body height Body mass index (BMI) Body weight Heart rate Respiratory rate Systolic And Diastolic Provider Name and Address Organization Details Last Updated DateTime 4 160.02 cm 36.1 kg/m2 74360.8 4 g 75 /min 16 /min 123/76 mm[Hg] Nelda Gore [place] [facility] 4 12:28:43 Social History Question Answer Notes LastModified by [email or web address] Details LastModified Time Tobacco Smoking Status Never Smoker Nelda Gore null, [place] [facility] 06/28/2023 10:28:30 In The 14 Days Before Symptom Onset, Have You Had Close Contact With A Laboratory-confirm ed COVID-19 While That Case Was Ill? No [email or web address] Information n ot available 06/28/2023 In The 14 Days Before Symptom Onset, Have You Had Close Contact With A Person Who Is Under Investigation For COVID-19 While That Person Was Ill? No [email or web address] Information not available 06/28/2023 Have You Been To An Area Known To Be High Risk For COVID-19? No [email or web address] Information not available 06/28/2023 What Was The Date Of Your Most Recent Tobacco Screening? 08/27/2023 [email or web address] Information not available 08/27/2023 Are You Sexually Active? Yes [email or web address] Information not available 06/28/2023 Do You Have Smoke And Carbon Monoxide Detectors In Your Home? Yes [email or web address] Information not available 06/28/2023 Are You Passively Exposed To Smoke? No Information no t available 06/28/2023 Has Tobacco Cessation Counseling Been Provided? Yes [email or web address] Information not available 08/07/2023 Sex: Female Functional Status Question Answer Note LastModified by [email or web address] Details LastModified Time Do you use any illicit or recreational drugs? No [email or web address] Information not available 08/07/2023 Do you or have you ever used any other forms of tobacco or nicotine? No [email or web address] Information not available 06/28/2023 Mental Status None recorded. Family History Nothing [...] Diagnosis SNOMED-CT Code Diagnosis ICD10 Code Diagnosis IMO Codes Diagnosis Note [id number] CELESTINA Castellanos [address] [place] [address] 06/28/2023 10:11:48 07/01/2023 07:28:40 Venereal disease screening 812898160 Z11.3 1. STD testing done per pt request 2. Educated pt on STD prevention , Condom use 3. Pt verbalized understand ing 4. Will follow up pending lab results, as needed or at next annual Obesity 096043591 E66.9 Discussed diet and weight loss. Discussed making healthier food choices and increasing exercise. Discussed going to a levelman. [id number] CELESTINA Castellanos [address] [place] [address] 07/16/2023 14:22:55 07/17/2023 08:55:14 Vaginal discharge 724474225 N89.8 Nuswab done and sent to lab. Counseled on STD prevention and condom use. Counseled on yeast and BV prevention . Will follow up pending lab results. [id number] CELESTINA Castellanos [address] [place] [address] 08/07/2023 14:14:35 08/08/2023 08:20:36 Obesity 062379496 E66.9 Discussed diet and weight loss. Discussed making healthier food choices and increasing exercise. Discussed going to a levelman. Positive s creening for depression on PHQ-9 (Patient Health Questionnaire 9) 2103631363 46674 Z13.31 . Denies thoughts of self harm or harming others. Pt instructed to call 911 if depression worsens or go to ED. History of sexually transmitted disease 804188439 Z86.19 1. STD testing done per pt request 2. Educated pt on STD prevention , Condom use 3. Pt verbalized understand ing 4. Will follow up pending lab results, as needed or at next annual [id number] CELESTINA Castellanos [address] [place] [address] 08/27/2023 12:15:29 08/28/2023 10:16:11 Vaginal discharge 865468373 N89.8 Nuswab done and sent to lab. Counseled on STD prevention and condom use. Counseled on yeast and BV prevention . Will follow up pending lab results. Obesity 032831347 E66.9 Discussed diet and weight loss. Discussed making healthier food choices and increasing exercise. Discussed going to a levelman. Health Concerns Section Related Observation LastModified by Organization Detai ls LastModified Time None Recorded Concern Status LastModified by Organization Details LastModified Time None Recorded Advance Directives Directive None Recorded Payers Insurance Date Sequence Insurance Name Policy Number Policy [place] Covered Member ID [place] Member ID Guarantor Name 12/09/2023 1 [facility] (MEDICARE REPLACEMENT/A DVANTAGE - HMO) [id number] Sanjana Stein [id number] Sanjana Stein Notes Date Note Type Note Provider Name and Address Organization Details Recorded Time 4 text/html Annual GYNReported by PatientGenitourinary symptomsFor urinary symptoms, patient reportsno hematuriaandno incontinence. For vulva, patient reportsno genital lesion. For vagina, patient reportsnormal vaginal discharge.Breast symptomsFor breast, patient reportsno breast pain,no breast lump, andno nipple discharge.Endocrine symptomsFor sexual complaints, patient reportsno sexual complaints,no pain during intercourse, andnormal libido. For menopausal symptoms, patient reportsno menopausal symptomsandnormal vaginal lubrication.Psychological symptomsFor psychological symptoms, patient reportsno depression,no anxiety, andno pmdd.ROS as noted in the HPI 68 yo fe here for walk in std testing CELESTINA Castellanos Attn: Accounting,[address] [place], [address], [facility] 06/28/2023 11:59:45 4 text/html Annual GYNReported by PatientGenitourinary symptomsFor vagina, patient reportsfoul-smelling. For urinary symptoms, patient reportsno hematuriaandno incontinence. For vulva, patient reportsno genital lesion.Breast symptomsFor breast, patient reportsno breast pain,no breast lump, andno nipple discharge.Endocrine symptomsFor sexual complaints, patient reportsno sexual complaints,no pain during intercourse, andnormal libido. For menopausal symptoms, patient reportsno menopausal symptomsandnormal vaginal lubrication.Psychological symptomsFor psychological symptoms, patient reportsno depression,no anxiety, andno pmdd.Preventative measuresFor preventive measures, patient reportsencourage self breast examination,encourage regular exercise,encourage no tobacco use, andencourage regular mammograms starting age 40.ROS as noted in the HPI 68 yo fe here for vaginal discharge with odor- pos trich 07/02/23pt declines swab or exam today, would like refill on meds CELESTINA Castellanos Attn: Accounting,[address] [place], [address], [facility] 07/16/2023 15:18:31 4 text/html Annual GYNReported by PatientGenitourinary symptomsFor vagina, patient reportsfoul-smelling. For urinary symptoms, patient reportsno hematuriaandno incontinence. For vulva, patient reportsno genital lesion.Breast symptomsFor breast, patient reportsno breast pain,no breast lump, andno nipple discharge.Endocrine symptomsFor sexual complaints, patient reportsno sexual complaints,no pain during intercourse, andnormal libido. For menopausal symptoms, patient reportsno menopausal symptomsandnormal vaginal lubrication.Psychological symptomsFor psychological symptoms, patient reportsno depression,no anxiety, andno pmdd.Preventative measuresFor preventive measures, patient reportsencourage self breast examination,encourage regular exercise,encourage no tobacco use, andencourage regular mammograms starting age 40.ROS as noted in the HPI 68 yo fe here for jeannine- pos trich 07/02/23 CELESTINA Castellanos Attn: Accounting,[address] [place], [address], [facility] 08/07/2023 14:34:58 4 text/html Annual GYNReported by PatientGenitourinary symptomsFor vagina, patient reportsfoul-smelling. For urinary symptoms, patient reportsno hematuriaandno incontinence. For vulva, patient reportsno genital lesion.Breast symptomsFor breast, patient reportsno breast pain,no breast lump, andno nipple discharge.Endocrine symptomsFor sexual complaints, patient reportsno sexual complaints,no pain during intercourse, andnormal libido. For menopausal symptoms, patient reportsno menopausal symptomsandnormal vaginal lubrication.Psychological symptomsFor psychological symptoms, patient reportsno depression,no anxiety, andno pmdd.Preventative measuresFor preventive measures, patient reportsencourage self breast examination,encourage regular exercise,encourage no tobacco use, andencourage regular mammograms starting age 40.ROS as noted in the HPI 68 yo fe here for continued vaginal discharge- pos trich 07/02/23 VEGA Castellanos-ANGELICA Attn: Accounting,[address] [place], [address], [facility] 08/27/2023 12:46:10 OBGyn Episode No OBEpisode recorded.
--- OUTSIDE RECORDS SUMMARY | 2025-04-26 18:21 | XMS_ITS | Clinical Summary ---
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 Name Role Phone Unavailable Primary Care Provider [...] 2004 Dexa Scan (General) 2019 COVID-19 Vaccine ( - 2024-2 6 season) 2025 Influenza Adult (#1) 2025 RSV Immunization or 60+ Years (1 - 1-dose 75+ series) 2029 Hepatitis A Vaccines Aged Out No long er eligible based on patient's age to complete this topic Meningococcal B Vaccine Aged Out No l onger eligible based on patient's age to complete this topic Meningococcal Vaccine Aged Out No deloris barney eligible based on patient's age to complete this topic RSV Immunizations Under 20 Months Aged Out No longer eligible based on patient's age to complete this topic
[2025-04-26 18:59] LABS: Add Urine Microscopic? YES; Appearance Urine Clear (Clear); Glucose Urine UA Negative (Negative); Leukocyte Esterase Ur Trace LEU/UL (Negative); Nitrate Urine Negative (Negative); Non Pathogenic Casts 0-2; Specific Grav Ur 1.021 (1.001-1.035)
== END 2025-04-26 16:07 | disposition home or self-care (01) ==
LOC: ANHGOSHLAB 16:09
DX: R35.0 Frequency of micturition (principal)
CPT/HCPCS: 81001